=== PATIENT | female | born 1970 | race Caucasian/White ===

== ENCOUNTER 2016-09-04 22:24 | Emergency (ER) | payer MEDICAID ==
[~2016-09-04] VITALS: Ht 177.8 cm; Wt 83.9 kg
[2016-09-04 22:45] VITALS: BP 135/90
[2016-09-05] MEDS ORDERED: CYCLOBENZAPRINE HCL 10 MG TAB PO ONE (02:00)
[2016-09-05] MEDS ORDERED: IBUPROFEN 600 MG TAB PO ONE (02:00)
== END 2016-09-05 02:05 | disposition home or self-care (01) ==
LOC: ER 22:24
DX: S40.012A Contusion of left shoulder, initial encounter (principal); S40.022A Contusion of left upper arm, initial encounter; F12.10 Cannabis abuse, uncomplicated; Z88.0 Allergy status to penicillin; Z88.1 Allergy status to other antibiotic agents; W19.XXXA Unspecified fall, initial encounter; Y93.89 Activity, other specified; Y99.8 Other external cause status; Y92.89 Other specified places as the place of occurrence of the external cause
CPT/HCPCS: 72131; 73030; 73070; 73090; 73100; 73130

== ENCOUNTER 2022-03-09 12:47 | Emergency (ER) | payer MEDICAID ==
[~2022-03-09] VITALS: Ht 177.8 cm; Wt 103.4 kg
[2022-03-09 14:21] LABS: Basophils # (auto) 0.1 10 ^3/uL (0-0.2); Basophils % (auto) 1.3 % (0.0-2.0); Eosinophils # (auto) 0.1 10 ^3/uL (0-0.8); Hematocrit 45.1 % (36.0-46.0); Lymphocytes # (auto) 2.2 10 ^3/uL (0.4-5.4); Lymphocytes % (auto) 19.6 % (10.0-50.0); Mean Corpuscular Hemoglobin 30.8 pg (28.0-32.0); Mean Corpuscular Hgb Conc. 33.3 g/dL (32.0-36.0); Mean Corpuscular Volume 92.5 fL (80.0-100.0); Monocytes % (auto) 9.4 % (0.0-12.0); Neutrophils # (auto) 7.6 10 ^3/uL (1.6-8.6); Neutrophils % (auto) 68.7 % (37.0-80.0); Nucleated Red Blood Cells % 0.1 %; Red Blood Cells 4.87 10^6/uL (4.0-5.20); Red Cell Distribution Width 14.1 % (11.8-14.3); White Blood Cell 11.1 10^3/uL (4.4-10.8)
[2022-03-09 14:34] LABS: Albumin 3.5 g/dL (3.4-5.0); Calcium 8.8 mg/dL (8.5-10.1); Potassium 3.5 mmol/L (3.5-5.1)
[2022-03-09 14:37] LABS: Bilirubin, Total 0.5 mg/dL (0.2-1.0); Total Protein 7.2 g/dL (6.4-8.2)
[2022-03-09 17:10] VITALS: BP 143/91
== END 2022-03-09 14:44 | disposition home or self-care (01) ==
LOC: ER 12:54
DX: R55 Syncope and collapse (principal); R42 Dizziness and giddiness; J44.9 Chronic obstructive pulmonary disease, unspecified; E11.9 Type 2 diabetes mellitus without complications; I10 Essential (primary) hypertension; Z88.0 Allergy status to penicillin; Z88.2 Allergy status to sulfonamides
CPT/HCPCS: 36415; 80053; 84484; 85025; 93005

== ENCOUNTER → 2022-10-27 | Outpatient (CLI) | payer MEDICAID | END | disposition home or self-care (01) | LOC: XYW 08:46 | DX: R07.9 Chest pain, unspecified (principal) | CPT/HCPCS: 93306 ==

== ENCOUNTER 2023-01-01 11:34 | Inpatient (IN) | payer MEDICAID ==
[~2023-01-01] VITALS: Ht 177.8 cm; Wt 101.5 kg
[2023-01-01] MEDS ORDERED: SODIUM CHLORIDE 0.9% 1,000 ML IV ONE (12:15)
[2023-01-01 12:42] LABS: Basophils # (auto) 0.1 10 ^3/uL (0-0.2); Basophils % (auto) 0.9 % (0.0-2.0); Eosinophils # (auto) 0.1 10 ^3/uL (0-0.8); Hematocrit 46.6 % (36.0-46.0); Hemoglobin 15.2 g/dL (12.2-16.2); Lymphocytes # (auto) 2.4 10 ^3/uL (0.4-5.4); Lymphocytes % (auto) 17.3 % (10.0-50.0); Mean Corpuscular Hemoglobin 30.6 pg (28.0-32.0); Mean Corpuscular Hgb Conc. 32.7 g/dL (32.0-36.0); Mean Corpuscular Volume 93.8 fL (80.0-100.0); Monocytes # (auto) 1.1 10 ^3/uL (0-1.3); Monocytes % (auto) 7.6 % (0.0-12.0); Neutrophils # (auto) 10.2 10 ^3/uL (1.6-8.6); Neutrophils % (auto) 73.2 % (37.0-80.0); Nucleated Red Blood Cells % 0.1 %; Red Blood Cells 4.97 10^6/uL (4.0-5.20); Red Cell Distribution Width 14.1 % (11.8-14.3)
[2023-01-01 13:10] LABS: Alanine Aminotransferase 38 U/L (7-40); Albumin 4.5 g/dL (3.2-4.8); Alkaline Phosphatase 71 U/L (46-116); Anion Gap 7.3 (5-15); Aspartate Aminotransferase 13 U/L (13-40); BUN/Creatinine Ratio 10.8 (10.0-20.0); Bilirubin, Total 0.3 mg/dL (0.2-1.0); Blood Urea Nitrogen 11 mg/dL (9-23); Calcium 9.6 mg/dL (8.5-10.1); Carbon Dioxide 26.7 mmol/L (20-30); Chloride 104 mmol/L (98-107); Glucose 102 mg/dL (74-106); Potassium 3.8 mmol/L (3.5-5.1); Sodium 138 mmol/L (136-145)
[2023-01-01 13:11] LABS: Total Protein 7.3 g/dL (5.7-8.2)
[2023-01-01] MEDS ORDERED: MECL1TAB42 PO (14:19)
[2023-01-01] MEDS ORDERED: levoFLOXacin 750MG 150 ML IV ONE (14:30)
[2023-01-01] MEDS ORDERED: METO-289 PO (15:43)
[2023-01-01] MEDS ORDERED: CITA-73 PO (15:43)
[2023-01-01] MEDS ORDERED: NITROGLYCERIN 0.4 MG SL TAB SL PRN (15:45)
[2023-01-01] MEDS ORDERED: ACETAMINOPHEN 325 MG TAB PO PRN (15:45)
[2023-01-01] MEDS ORDERED: DOCUSATE SOD 100 MG CAP PO PRN (15:45)
[2023-01-01] MEDS ORDERED: HYDROcodone-ACET 5/325MG TAB PO PRN (15:45)
[2023-01-01] MEDS ORDERED: ONDANSETRON HCL 4 MG/2 ML VIAL IV PRN (15:45)
[2023-01-01] MEDS ORDERED: MORPHINE SULFATE INJ 2 MG/ml SYRG IV PRN (15:45)
[2023-01-01 15:55] LABS: Urine Bacteria NONE SEEN /hpf (None Seen); Urine Blood Negative /uL (Negative); Urine Clarity Clear (Clear); Urine Color Colorless (Yellow); Urine Protein, UAD Negative (Negative); Urine Specific Gravity 1.019 (1.001-1.035); Urine Urobilinogen Normal (Negative); Urine WBC 16 /hpf (0 - 5); Urine pH 5.5 (5.0-8.0)
[2023-01-01] MEDS ORDERED: IOHEXOL 350 MG/ML 100ML IJ ONE (16:05)
[2023-01-01] MEDS: OXYCODONE W/ ACETAMINOPHEN 5/325MG TABLET PO PRN (19:48)
[2023-01-01] MEDS: SODIUM CHLOR 0.9% PF (SALINE LOCK) 10ML VIAL/SYR IV SCH (22:34)
[2023-01-02] VITALS (14 sets, daily range): BP systolic 122–155; BP diastolic 70–94; PULSE 75–92; RESP 12–22; TEMP 97.2–98.4; O2SAT 95–100
[2023-01-02] MEDS ORDERED: ALBUTEROL SULF 2.5 MG/0.5ML(0.5%) NEB SOLN ONE (01:13)
[2023-01-02] MEDS: OXYCODONE W/ ACETAMINOPHEN 5/325MG TABLET PO PRN ×4 (03:09→21:33)
[2023-01-02 04:47] LABS: Basophils # (auto) 0.1 10 ^3/uL (0-0.2); Basophils % (auto) 0.5 % (0.0-2.0); Eosinophils # (auto) 0 10 ^3/uL (0-0.8); Eosinophils % (auto) 0.2 % (0.0-7.0); Hematocrit 46.4 % (36.0-46.0); Hemoglobin 15.3 g/dL (12.2-16.2); Lymphocytes # (auto) 2.3 10 ^3/uL (0.4-5.4); Lymphocytes % (auto) 11.7 % (10.0-50.0); Mean Corpuscular Hemoglobin 30.7 pg (28.0-32.0); Mean Corpuscular Hgb Conc. 33.1 g/dL (32.0-36.0); Mean Corpuscular Volume 92.8 fL (80.0-100.0); Monocytes # (auto) 1.4 10 ^3/uL (0-1.3); Monocytes % (auto) 7.5 % (0.0-12.0); Neutrophils # (auto) 15.4 10 ^3/uL (1.6-8.6); Neutrophils % (auto) 80.1 % (37.0-80.0); Red Cell Distribution Width 14.4 % (11.8-14.3); White Blood Cell 19.3 10^3/uL (4.4-10.8)
[2023-01-02 05:00] LABS: Alanine Aminotransferase 34 U/L (7-40); Albumin 4.6 g/dL (3.2-4.8); Alkaline Phosphatase 71 U/L (46-116); Anion Gap 11.7 (5-15); Aspartate Aminotransferase 18 U/L (13-40); BUN/Creatinine Ratio 10.4 (10.0-20.0); Bilirubin, Total 0.6 mg/dL (0.2-1.0); Blood Urea Nitrogen 10 mg/dL (9-23); Calcium 9.4 mg/dL (8.7-10.4); Carbon Dioxide 22.3 mmol/L (20-30); Chloride 104 mmol/L (98-107); Glucose 105 mg/dL (74-106); Potassium 3.3 mmol/L (3.5-5.1); Sodium 138 mmol/L (136-145); Total Protein 7.8 g/dL (5.7-8.2)
[2023-01-02] MEDS: SODIUM CHLOR 0.9% PF (SALINE LOCK) 10ML VIAL/SYR IV SCH ×3 (06:00→21:38)
[2023-01-02] MEDS ORDERED: BUPR100T16 PO (09:02)
[2023-01-02] MEDS ORDERED: TRAZ-228 PO (09:02)
[2023-01-02] MEDS ORDERED: GABA-339 PO (09:02)
[2023-01-02] MEDS ORDERED: METH-1181 PO (09:02)
[2023-01-02] MEDS ORDERED: BUSP30TA21 PO (09:02)
[2023-01-02] MEDS: ALBUTEROL SULF 2.5 MG/0.5ML(0.5%) NEB SOLN NEB PRN (09:02)
[2023-01-02] MEDS ORDERED: HYDR-3682 PO (09:02)
[2023-01-02] MEDS: GABAPENTIN 300 MG CAP PO PRN (09:58)
[2023-01-02] MEDS: busPIRone HCL 10 MG TAB PO SCH ×2 (09:58→21:31)
[2023-01-02] MEDS: METHOCARBAMOL 500 MG TAB PO SCH ×2 (09:58→21:31)
[2023-01-02] MEDS: hydrOXYzine HCL 10 MG TAB PO SCH ×2 (10:00→21:30)
[2023-01-02] MEDS: METOPROLOL SUCCINATE XL 50 MG TAB PO SCH (10:00)
[2023-01-02] MEDS ORDERED: CITALOPRAM HYDROBR 20 MG TAB PO SCH (10:00)
[2023-01-02] MEDS ORDERED: TEMAZEPAM 15 MG CAP PO PRN (11:00)
[2023-01-02] MEDS ORDERED: cefTRIAXone 1GM/50ML D5W 50 ML IV ONE (11:00)
[2023-01-02] MEDS ORDERED: ONDANSETRON HCL 4 MG/2 ML VIAL IV PRN (11:00)
[2023-01-02] MEDS: SODIUM CHLORIDE 0.9% 1,000 ML IV SCH ×2 (11:40→23:21)
[2023-01-02 11:50] LABS: Amylase 78 U/L (30-118); Lipase 45 U/L (12-53)
[2023-01-02 12:18] LABS: Erythrocyte Sedimentation Rate 3 mm/hr (0-20)
[2023-01-03] VITALS (8 sets, daily range): BP systolic 140–165; BP diastolic 58–101; PULSE 61–88; RESP 14–18; TEMP 97.7–98.9; O2SAT 94–100
[2023-01-03] MEDS: GABAPENTIN 300 MG CAP PO PRN (03:08)
[2023-01-03] MEDS: SODIUM CHLOR 0.9% PF (SALINE LOCK) 10ML VIAL/SYR IV SCH ×3 (05:17→21:57)
[2023-01-03] MEDS: OXYCODONE W/ ACETAMINOPHEN 5/325MG TABLET PO PRN ×3 (05:18→19:50)
[2023-01-03] MEDS: SODIUM CHLORIDE 0.9% 1,000 ML IV SCH ×2 (06:38→17:45)
[2023-01-03] MEDS: BUPROPION HCL 100 MG PO SCH (06:39)
[2023-01-03 06:40] LABS: Basophils # (auto) 0.1 10 ^3/uL (0-0.2); Basophils % (auto) 0.5 % (0.0-2.0); Eosinophils # (auto) 0.1 10 ^3/uL (0-0.8); Eosinophils % (auto) 0.6 % (0.0-7.0); Hematocrit 46.2 % (36.0-46.0); Hemoglobin 14.9 g/dL (12.2-16.2); Lymphocytes # (auto) 1.9 10 ^3/uL (0.4-5.4); Lymphocytes % (auto) 12.3 % (10.0-50.0); Mean Corpuscular Hemoglobin 30.4 pg (28.0-32.0); Mean Corpuscular Hgb Conc. 32.3 g/dL (32.0-36.0); Monocytes # (auto) 1.4 10 ^3/uL (0-1.3); Monocytes % (auto) 8.6 % (0.0-12.0); Neutrophils # (auto) 12.3 10 ^3/uL (1.6-8.6); Red Blood Cells 4.91 10^6/uL (4.0-5.20); Red Cell Distribution Width 14.3 % (11.8-14.3); White Blood Cell 15.8 10^3/uL (4.4-10.8)
[2023-01-03 08:39] LABS: Alanine Aminotransferase 29 U/L (7-40); Alkaline Phosphatase 63 U/L (46-116); Anion Gap 10.7 (5-15); Aspartate Aminotransferase 22 U/L (13-40); BUN/Creatinine Ratio 11.4 (10.0-20.0); Blood Urea Nitrogen 9 mg/dL (9-23); Calcium 8.8 mg/dL (8.5-10.1); Carbon Dioxide 20.3 mmol/L (20-30); Chloride 109 mmol/L (98-107); Glucose 89 mg/dL (74-106); Potassium 3.5 mmol/L (3.5-5.1); Sodium 140 mmol/L (136-145)
[2023-01-03 08:40] LABS: Bilirubin, Total 0.6 mg/dL (0.2-1.0); Total Protein 6.7 g/dL (5.7-8.2)
[2023-01-03] MEDS: cefTRIAXone 1GM/50ML D5W 50 ML IV SCH (08:50)
[2023-01-03] MEDS: busPIRone HCL 10 MG TAB PO SCH ×2 (10:05→21:52)
[2023-01-03] MEDS: METHOCARBAMOL 500 MG TAB PO SCH ×2 (10:06→21:53)
[2023-01-03] MEDS: METOPROLOL SUCCINATE XL 50 MG TAB PO SCH (10:06)
[2023-01-03] MEDS: hydrOXYzine HCL 10 MG TAB PO SCH (10:20)
[2023-01-03] MEDS ORDERED: OMEP20TA PO (12:26)
[2023-01-03] MEDS ORDERED: MEDR2.5T5 PO (12:26)
[2023-01-03] MEDS ORDERED: POM (12:26)
[2023-01-03] MEDS ORDERED: LINA145C OR (12:26)
[2023-01-03] MEDS ORDERED: FAMO-12 PO (12:26)
[2023-01-03] MEDS ORDERED: METO-289 PO (12:26)
[2023-01-03] MEDS ORDERED: FINA5TAB4 PO (12:26)
[2023-01-03] MEDS ORDERED: SEMA0.25 SC (12:26)
[2023-01-03] MEDS ORDERED: HYDR25TA4 PO (12:26)
[2023-01-03] MEDS ORDERED: ATO40T PO (12:26)
[2023-01-03] MEDS ORDERED: LISI20TA56 PO (12:26)
[2023-01-03] MEDS ORDERED: PERCOT PO (12:56)
[2023-01-03] MEDS ORDERED: IOHEXOL 300 MG/ML 100ML BOTTLE IJ ONE (13:48)
[2023-01-03] MEDS: ACETAMINOPHEN 500 MG TAB PO PRN (19:21)
[2023-01-03] MEDS: CITALOPRAM HYDROBR 20 MG TAB PO SCH (21:53)
[2023-01-03] MEDS: hydrOXYzine 25 MG TAB or CAP PO SCH (21:53)
[2023-01-04] VITALS (10 sets, daily range): BP systolic 124–182; BP diastolic 67–105; PULSE 67–81; RESP 14–21; TEMP 96.8–98.4; O2SAT 95–98
[2023-01-04] MEDS: SODIUM CHLORIDE 0.9% 1,000 ML IV SCH (03:00)
[2023-01-04] MEDS: SODIUM CHLOR 0.9% PF (SALINE LOCK) 10ML VIAL/SYR IV SCH ×3 (05:39→21:23)
[2023-01-04] MEDS: BUPROPION HCL 100 MG PO SCH (07:28)
[2023-01-04] MEDS: cefTRIAXone 1GM/50ML D5W 50 ML IV SCH (09:22)
[2023-01-04] MEDS: hydrOXYzine 25 MG TAB or CAP PO SCH ×2 (09:29→21:19)
[2023-01-04] MEDS: busPIRone HCL 10 MG TAB PO SCH ×2 (09:29→21:18)
[2023-01-04] MEDS: OXYCODONE W/ ACETAMINOPHEN 5/325MG TABLET PO PRN ×2 (09:29→19:44)
[2023-01-04] MEDS: METHOCARBAMOL 500 MG TAB PO SCH ×2 (09:30→21:19)
[2023-01-04] MEDS: METOPROLOL SUCCINATE XL 50 MG TAB PO SCH (09:30)
[2023-01-04] MEDS ORDERED: LISINOPRIL 20 MG TAB PO SCH (11:45)
[2023-01-04] MEDS: HCTZ 25 MG TAB PO SCH (12:08)
[2023-01-04] MEDS ORDERED: FINASTERIDE 5 MG TAB PO ONE (12:15)
[2023-01-04] MEDS: LINZESS 145 MG PO SCH (12:30)
[2023-01-04] MEDS: GABAPENTIN 300 MG CAP PO SCH ×2 (13:39→21:16)
[2023-01-04] MEDS ORDERED: ALBUAER3 IN (20:41)
[2023-01-04] MEDS: traZODone HCL 50 MG TAB PO SCH (21:17)
[2023-01-04] MEDS: CITALOPRAM HYDROBR 20 MG TAB PO SCH (21:17)
[2023-01-04] MEDS: LISINOPRIL 20 MG TAB PO SCH (21:18)
[2023-01-04] MEDS: medroxyPROGESTERone ACETATE 5 MG TAB PO SCH (22:37)
[2023-01-05] VITALS (12 sets, daily range): BP systolic 112–182; BP diastolic 70–106; PULSE 58–134; RESP 16–20; TEMP 97.6–98.6; O2SAT 95–100
[2023-01-05] MEDS: ACETAMINOPHEN 500 MG TAB PO PRN (00:25)
[2023-01-05] MEDS: OXYCODONE W/ ACETAMINOPHEN 5/325MG TABLET PO PRN ×3 (03:48→22:52)
[2023-01-05] MEDS: GABAPENTIN 300 MG CAP PO SCH ×3 (06:06→21:32)
[2023-01-05] MEDS: SODIUM CHLOR 0.9% PF (SALINE LOCK) 10ML VIAL/SYR IV SCH ×3 (06:06→21:34)
[2023-01-05] MEDS: BUPROPION HCL 100 MG PO SCH (06:07)
[2023-01-05] MEDS ORDERED: ADENOSINE 83 MG in GIVE UN-DILUTED 0 ML IV STA (07:48)
[2023-01-05] MEDS: cefTRIAXone 1GM/50ML D5W 50 ML IV SCH (08:59)
[2023-01-05] MEDS: busPIRone HCL 10 MG TAB PO SCH ×2 (12:03→21:32)
[2023-01-05] MEDS: FINASTERIDE 5 MG TAB PO SCH (12:04)
[2023-01-05] MEDS: hydrOXYzine 25 MG TAB or CAP PO SCH ×2 (12:04→21:33)
[2023-01-05] MEDS: METHOCARBAMOL 500 MG TAB PO SCH ×2 (12:04→21:33)
[2023-01-05] MEDS: METOPROLOL SUCCINATE XL 50 MG TAB PO SCH (12:05)
[2023-01-05] MEDS: HCTZ 25 MG TAB PO SCH (12:05)
[2023-01-05] MEDS: LINZESS 145 MG PO SCH (15:39)
[2023-01-05] MEDS ORDERED: ATORVASTATIN 20 MG TAB PO SCH (18:00)
[2023-01-05] MEDS: BUDESONIDE (INHALATION) 0.5 MG/2 ML NEB NEB SCH (21:07)
[2023-01-05] MEDS: ALBUTEROL SULF 2.5 MG/0.5ML(0.5%) NEB SOLN NEB PRN (21:07)
[2023-01-05] MEDS: CITALOPRAM HYDROBR 20 MG TAB PO SCH (21:27)
[2023-01-05] MEDS: LISINOPRIL 20 MG TAB PO SCH (21:31)
[2023-01-05] MEDS: traZODone HCL 50 MG TAB PO SCH (21:32)
[2023-01-05] MEDS: FAMOTIDINE 20 MG TAB PO SCH (21:33)
[2023-01-05] MEDS: medroxyPROGESTERone ACETATE 5 MG TAB PO SCH (22:44)
[2023-01-06] VITALS (12 sets, daily range): BP systolic 102–136; BP diastolic 51–76; PULSE 59–92; RESP 16–18; TEMP 97.7–98.7; O2SAT 93–100
[2023-01-06] MEDS: GABAPENTIN 300 MG CAP PO SCH ×3 (06:01→21:39)
[2023-01-06] MEDS: SODIUM CHLOR 0.9% PF (SALINE LOCK) 10ML VIAL/SYR IV SCH ×3 (06:02→21:33)
[2023-01-06] MEDS: BUPROPION HCL 100 MG PO SCH (06:02)
[2023-01-06] MEDS: cefTRIAXone 1GM/50ML D5W 50 ML IV SCH (08:19)
[2023-01-06] MEDS: BUDESONIDE (INHALATION) 0.5 MG/2 ML NEB NEB SCH ×2 (09:56→22:10)
[2023-01-06] MEDS: ALBUTEROL SULF 2.5 MG/0.5ML(0.5%) NEB SOLN NEB PRN ×2 (09:56→22:10)
[2023-01-06] MEDS: FINASTERIDE 5 MG TAB PO SCH (10:06)
[2023-01-06] MEDS: METOPROLOL SUCCINATE XL 50 MG TAB PO SCH (10:06)
[2023-01-06] MEDS: METHOCARBAMOL 500 MG TAB PO SCH ×3 (10:09→21:35)
[2023-01-06] MEDS: HCTZ 25 MG TAB PO SCH (10:10)
[2023-01-06] MEDS: hydrOXYzine 25 MG TAB or CAP PO SCH ×2 (10:10→21:36)
[2023-01-06] MEDS: busPIRone HCL 10 MG TAB PO SCH ×2 (10:12→21:36)
[2023-01-06] MEDS: LINZESS 145 MG PO SCH (10:13)
[2023-01-06] MEDS: PANTOPRAZOLE 40 MG TAB PO SCH (11:22)
[2023-01-06] MEDS: OXYCODONE W/ ACETAMINOPHEN 5/325MG TABLET PO PRN (11:43)
[2023-01-06] MEDS: medroxyPROGESTERone ACETATE 5 MG TAB PO SCH (21:34)
[2023-01-06] MEDS: traZODone HCL 50 MG TAB PO SCH (21:36)
[2023-01-06] MEDS: CITALOPRAM HYDROBR 20 MG TAB PO SCH (21:37)
[2023-01-06] MEDS: LISINOPRIL 20 MG TAB PO SCH (21:38)
[2023-01-06] MEDS: FAMOTIDINE 20 MG TAB PO SCH (21:38)
[2023-01-06] MEDS ORDERED: ATORVASTATIN 20 MG TAB PO SCH (22:00)
[2023-01-07] VITALS (10 sets, daily range): BP systolic 114–152; BP diastolic 58–82; PULSE 63–91; RESP 12–19; TEMP 97.5–97.9; O2SAT 90–95
[2023-01-07] MEDS: OXYCODONE W/ ACETAMINOPHEN 5/325MG TABLET PO PRN (04:38)
[2023-01-07 04:49] LABS: Basophils # (auto) 0.1 10 ^3/uL (0-0.2); Basophils % (auto) 0.5 % (0.0-2.0); Eosinophils # (auto) 0.2 10 ^3/uL (0-0.8); Eosinophils % (auto) 1.6 % (0.0-7.0); Hematocrit 42.5 % (36.0-46.0); Lymphocytes # (auto) 2.5 10 ^3/uL (0.4-5.4); Lymphocytes % (auto) 19.2 % (10.0-50.0); Mean Corpuscular Hemoglobin 30.8 pg (28.0-32.0); Mean Corpuscular Hgb Conc. 32.9 g/dL (32.0-36.0); Mean Corpuscular Volume 93.5 fL (80.0-100.0); Monocytes # (auto) 1.4 10 ^3/uL (0-1.3); Monocytes % (auto) 10.6 % (0.0-12.0); Neutrophils % (auto) 68.1 % (37.0-80.0); Nucleated Red Blood Cells % 0.1 %; Red Blood Cells 4.55 10^6/uL (4.0-5.20); White Blood Cell 13.2 10^3/uL (4.4-10.8)
[2023-01-07 04:59] LABS: Anion Gap 6.5 (5-15); Carbon Dioxide 24.5 mmol/L (20-30); Chloride 107 mmol/L (98-107); Potassium 3.5 mmol/L (3.5-5.1); Sodium 138 mmol/L (136-145)
[2023-01-07 05:05] LABS: BUN/Creatinine Ratio 13.8 (10.0-20.0); Blood Urea Nitrogen 12 mg/dL (9-23); Glucose 101 mg/dL (74-106)
[2023-01-07 05:14] LABS: INR 1.03 (0.9-1.15); Partial Thromboplastin Time 26.2 SEC (24.5-34.5); Prothrombin Time 10.8 sec (9.3-11.8)
[2023-01-07] MEDS: GABAPENTIN 300 MG CAP PO SCH ×2 (05:44→14:00)
[2023-01-07] MEDS: SODIUM CHLOR 0.9% PF (SALINE LOCK) 10ML VIAL/SYR IV SCH ×2 (05:47→14:00)
[2023-01-07] MEDS: BUPROPION HCL 100 MG PO SCH (06:02)
[2023-01-07] MEDS: cefTRIAXone 1GM/50ML D5W 50 ML IV SCH (08:46)
[2023-01-07] MEDS: busPIRone HCL 10 MG TAB PO SCH (10:00)
[2023-01-07] MEDS: HCTZ 25 MG TAB PO SCH (10:00)
[2023-01-07] MEDS: PANTOPRAZOLE 40 MG TAB PO SCH (10:00)
[2023-01-07] MEDS: FINASTERIDE 5 MG TAB PO SCH (10:00)
[2023-01-07] MEDS: METOPROLOL SUCCINATE XL 50 MG TAB PO SCH (10:00)
[2023-01-07] MEDS: LINZESS 145 MG PO SCH (10:00)
[2023-01-07] MEDS: METHOCARBAMOL 500 MG TAB PO SCH (10:00)
[2023-01-07] MEDS: hydrOXYzine 25 MG TAB or CAP PO SCH (10:00)
[2023-01-07] MEDS ORDERED: HEPARIN SODIUM (PORCINE) 5000 UNITS/ML 1ML VIAL ONE (13:33)
[2023-01-07] MEDS ORDERED: ANGIOMAX 250 MG VIAL IV ONE (13:33)
[2023-01-07] MEDS ORDERED: IODIXANOL 320MG/ML 100ML BTL IV ONE (13:34)
[2023-01-07] MEDS ORDERED: SODIUM CHL 0.9% 0 ML ONE (13:34)
[2023-01-07] MEDS ORDERED: MIDAZOLAM HCL 2MG/2ML 2ml VIAL (1mg/ml) ONE (13:34)
[2023-01-07] MEDS ORDERED: LIDOCAINE 2%HCL (LOCAL ANESTH.) INJ 20ML MDV ONE (13:34)
[2023-01-07] MEDS ORDERED: fentaNYL CITRATE 100 MCG/2 ML VL ONE (13:34)
[2023-01-07] MEDS ORDERED: VERAPAMIL 2.5MG/ML INJ 2ML VIAL IV ONE (13:35)
[2023-01-08] MEDS ORDERED: ASPI-543 PO (07:17)
== END 2023-01-07 19:00 | disposition home or self-care (01) | DRG 191 ==
LOC: ER 11:34 → EDBD 11:34 → TELE 15:43 → TELE-WESTW 01-02 12:01
PROVIDERS: ADMIT Nurse Practitioner Family; ATTEND Nurse Practitioner Acute Care
PROC: 4A023N7 Measurement of Cardiac Sampling and Pressure, Left Heart, Percutaneous Approach (ICD-10-PCS; principal; 2023-01-07)
PROC: B211YZZ Fluoroscopy of Multiple Coronary Arteries using Other Contrast (ICD-10-PCS; 2023-01-07)
PROC: B215YZZ Fluoroscopy of Left Heart using Other Contrast (ICD-10-PCS; 2023-01-07)
DX: I25.10 Atherosclerotic heart disease of native coronary artery without angina pectoris (principal); K76.0 Fatty (change of) liver, not elsewhere classified; E11.9 Type 2 diabetes mellitus without complications; R79.89 Other specified abnormal findings of blood chemistry; N39.0 Urinary tract infection, site not specified; K57.90 Diverticulosis of intestine, part unspecified, without perforation or abscess without bleeding; Z20.822 Contact with and (suspected) exposure to COVID-19; R51.9 Headache, unspecified; G89.29 Other chronic pain; M54.50 Low back pain, unspecified; J44.9 Chronic obstructive pulmonary disease, unspecified; I10 Essential (primary) hypertension; Z79.82 Long term (current) use of aspirin; Z88.0 Allergy status to penicillin; Z88.2 Allergy status to sulfonamides
CPT/HCPCS: 36415; 70450; 71045; 71275; 74177; 78452; 80048; 80053; 81001; 82150; 82962; 83690; 84443; 84484; 85025; 85379; 85610; 85652; 85730; 87040; 87086; 93005; 93017; 93306; 93458; 93970; 94640; 99152; G0378; J0153; J0696; J1956; J2250; J2405; Q9967

== ENCOUNTER 2023-01-07 21:24 | Inpatient (IN) | payer MEDICAID ==
[~2023-01-07] VITALS: Ht 177.8 cm; Wt 104.3 kg
[~2023-01-07 21:24] MED LIST: ALBUAER3 IN; ATO40T PO; BUPR100T16 PO; BUSP30TA21 PO; CITA-73 PO; FAMO-12 PO; FINA5TAB4 PO; GABA-339 PO; HYDR-3682 PO; HYDR25TA4 PO; LINA145C OR; LISI20TA56 PO; MECL1TAB42 PO; MEDR2.5T5 PO; METH-1181 PO; METO-289 PO; OMEP20TA PO; PERCOT PO; POM; SEMA0.25 SC; TRAZ-228 PO
[2023-01-07] MEDS ORDERED: ADENOSINE 6 MG/2 ML INJ IV ONE ×2 (22:00)
[2023-01-07 22:28] LABS: Basophils # (auto) 0.1 10 ^3/uL (0-0.2); Basophils % (auto) 0.7 % (0.0-2.0); Eosinophils # (auto) 0.1 10 ^3/uL (0-0.8); Eosinophils % (auto) 0.8 % (0.0-7.0); Hematocrit 44.1 % (36.0-46.0); Hemoglobin 14.8 g/dL (12.2-16.2); Lymphocytes # (auto) 2.9 10 ^3/uL (0.4-5.4); Lymphocytes % (auto) 20.3 % (10.0-50.0); Mean Corpuscular Hemoglobin 31.6 pg (28.0-32.0); Mean Corpuscular Hgb Conc. 33.7 g/dL (32.0-36.0); Monocytes # (auto) 1.4 10 ^3/uL (0-1.3); Monocytes % (auto) 9.5 % (0.0-12.0); Neutrophils # (auto) 9.9 10 ^3/uL (1.6-8.6); Neutrophils % (auto) 68.7 % (37.0-80.0); Red Blood Cells 4.69 10^6/uL (4.0-5.20); Red Cell Distribution Width 14.2 % (11.8-14.3); White Blood Cell 14.3 10^3/uL (4.4-10.8)
[2023-01-07 22:46] LABS: Lactic Acid w/Reflex 3.2 mmol/L (0.4-2.0)
[2023-01-07 22:48] LABS: Alanine Aminotransferase 47 U/L (7-40); Albumin 4.3 g/dL (3.2-4.8); Alkaline Phosphatase 70 U/L (46-116); Anion Gap 10 (5-15); Aspartate Aminotransferase 25 U/L (13-40); BUN/Creatinine Ratio 11.5 (10.0-20.0); Bilirubin, Total 0.4 mg/dL (0.2-1.0); Blood Alcohol < 3.0 mg/dL (<10); Blood Urea Nitrogen 13 mg/dL (9-23); Calcium 9.2 mg/dL (8.7-10.4); Carbon Dioxide 21 mmol/L (20-30); Chloride 106 mmol/L (98-107); Glucose 152 mg/dL (74-106); Lipase 46 U/L (12-53); Magnesium 1.6 mg/dL (1.6-2.6); Potassium 3.7 mmol/L (3.5-5.1); Sodium 137 mmol/L (136-145); Total Protein 7.2 g/dL (5.7-8.2)
[2023-01-07 23:04] LABS: INR 1.05 (0.9-1.15); Partial Thromboplastin Time 26.7 SEC (24.5-34.5)
[2023-01-07] MEDS ORDERED: ENOXAPARIN SOD 100 MG/1 ML SYRINGE SC ONE (23:45)
[2023-01-07] MEDS ORDERED: METOPROLOL TARTRATE 1MG/1ML-5ML VIAL IV ONE (23:45)
[2023-01-07] MEDS ORDERED: ASPirin 325 MG TAB PO ONE (23:45)
[2023-01-08] VITALS (10 sets, daily range): BP systolic 130–146; BP diastolic 58–92; PULSE 59–98; RESP 18–20; TEMP 97.6–98; O2SAT 96–100
[2023-01-08] MEDS ORDERED: LACTATED RINGER'S 2,000 ML IV ONE (00:30)
[2023-01-08] MEDS ORDERED: MAGNESIUM SULFATE 1GM/100ML 100 ML IV ONE (00:45)
[2023-01-08] MEDS ORDERED: ACETAMINOPHEN 325 MG TAB PO PRN (01:00)
[2023-01-08] MEDS ORDERED: DEXTROSE (50%) 50ML SYRG IV PRN (01:00)
[2023-01-08] MEDS ORDERED: NITROGLYCERIN 0.4 MG SL TAB SL PRN (01:00)
[2023-01-08] MEDS ORDERED: MORPHINE SULFATE INJ 2 MG/ml SYRG IV PRN (01:00)
[2023-01-08] MEDS ORDERED: ONDANSETRON HCL 4 MG/2 ML VIAL IV PRN (01:00)
[2023-01-08] MEDS ORDERED: ALBUTEROL SULF 2.5 MG/0.5ML(0.5%) NEB SOLN NEB PRN (01:00)
[2023-01-08] MEDS ORDERED: diphenhdrAMINE HCL 50 MG/1 ML VL ONE (03:23)
[2023-01-08] MEDS ORDERED: diphenhdrAMINE HCL 50 MG/1 ML VL IV ONE (03:30)
[2023-01-08] MEDS: InsuLIN REG 1unit/0.01ml Soln (100units/ml) SC SCH ×3 (06:00→17:37)
[2023-01-08] MEDS ORDERED: ASPI-543 PO (07:17)
[2023-01-08] MEDS: GABAPENTIN 300 MG CAP PO SCH ×3 (07:26→22:25)
[2023-01-08] MEDS: ACCU-CHEK COMFORT CURVE STRIP VI SCH ×3 (07:27→17:37)
[2023-01-08] MEDS: ASPirin 81 mg TAB PO SCH (09:23)
[2023-01-08] MEDS: METOPROLOL SUCCINATE XL 50 MG TAB PO SCH (09:24)
[2023-01-08] MEDS: PANTOPRAZOLE 40 MG TAB PO SCH (09:25)
[2023-01-08] MEDS: HCTZ 25 MG TAB PO SCH (09:26)
[2023-01-08] MEDS: LISINOPRIL 10 MG TAB PO SCH (09:26)
[2023-01-08] MEDS: ENOXAPARIN SOD 40 MG/0.4 ML SYRINGE SC SCH (09:27)
[2023-01-08 11:26] LABS: Amphetamine Screen, Urine Neg (NEGATIVE); Barbiturate Scree,Urine Neg (NEGATIVE); Benzodiazephine Screen, Urine Pos (NEGATIVE); Cocaine Screen, Urine Neg (NEGATIVE); Opiate Scree,Urine Neg (NEGATIVE); Phencyclidine Screen, Urine Neg (NEGATIVE)
[2023-01-08 11:27] LABS: Cannabinoid Screen, Urine Pos (NEGATIVE)
[2023-01-08 11:33] LABS: Urine Bacteria NONE SEEN /hpf (None Seen); Urine Blood Negative /uL (Negative); Urine Clarity Clear (Clear); Urine Color Yellow (Yellow); Urine Mucus FEW (None Seen); Urine Protein, UAD TRACE (Negative); Urine Specific Gravity 1.035 (1.001-1.035); Urine Urobilinogen Normal (Negative); Urine WBC 1 /hpf (0 - 5)
[2023-01-08] MEDS ORDERED: OXYCODONE W/ ACETAMINOPHEN 5/325MG TABLET PO PRN (12:15)
[2023-01-08] MEDS: AMIODARONE HCL 200 MG TAB PO SCH ×2 (13:29→22:25)
[2023-01-08] MEDS: OXYCODONE W/ ACETAMINOPHEN 5/325MG TABLET PO PRN (13:30)
[2023-01-08] MEDS ORDERED: ATORVASTATIN 20 MG TAB PO SCH (22:00)
[2023-01-08] MEDS: hydrOXYzine 25 MG TAB or CAP PO SCH (22:25)
[2023-01-08] MEDS: METHOCARBAMOL 500 MG TAB PO SCH (22:26)
[2023-01-08] MEDS ORDERED: traZODone HCL 50 MG TAB PO SCH (23:00)
[2023-01-09 04:46] VITALS: BP 133/80; PULSE 31; RESP 17; TEMP 98; O2SAT 96
[2023-01-09] MEDS: InsuLIN REG 1unit/0.01ml Soln (100units/ml) SC SCH ×2 (06:00)
[2023-01-09] MEDS: ACCU-CHEK COMFORT CURVE STRIP VI SCH ×2 (06:00)
[2023-01-09 06:43] LABS: Basophils # (auto) 0.1 10 ^3/uL (0-0.2); Basophils % (auto) 1.1 % (0.0-2.0); Eosinophils # (auto) 0.1 10 ^3/uL (0-0.8); Eosinophils % (auto) 1.5 % (0.0-7.0); Hematocrit 39.9 % (36.0-46.0); Hemoglobin 13.7 g/dL (12.2-16.2); Lymphocytes # (auto) 2.8 10 ^3/uL (0.4-5.4); Lymphocytes % (auto) 30.7 % (10.0-50.0); Mean Corpuscular Hgb Conc. 34.4 g/dL (32.0-36.0); Monocytes # (auto) 1.1 10 ^3/uL (0-1.3); Monocytes % (auto) 12.5 % (0.0-12.0); Neutrophils # (auto) 4.9 10 ^3/uL (1.6-8.6); Neutrophils % (auto) 54.2 % (37.0-80.0); Nucleated Red Blood Cells % 0.1 %; Red Cell Distribution Width 14.1 % (11.8-14.3)
[2023-01-09] MEDS: GABAPENTIN 300 MG CAP PO SCH (06:49)
[2023-01-09] MEDS: OXYCODONE W/ ACETAMINOPHEN 5/325MG TABLET PO PRN (06:49)
[2023-01-09 06:55] LABS: Alanine Aminotransferase 37 U/L (7-40); Albumin 3.8 g/dL (3.2-4.8); Alkaline Phosphatase 56 U/L (46-116); Anion Gap 6 (5-15); Aspartate Aminotransferase 19 U/L (13-40); BUN/Creatinine Ratio 10.7 (10.0-20.0); Bilirubin, Total 0.5 mg/dL (0.2-1.0); Blood Urea Nitrogen 9 mg/dL (9-23); Calcium 8.6 mg/dL (8.5-10.1); Carbon Dioxide 26 mmol/L (20-30); Chloride 107 mmol/L (98-107); Glucose 88 mg/dL (74-106); Potassium 3.4 mmol/L (3.5-5.1); Sodium 139 mmol/L (136-145); Total Protein 6.3 g/dL (5.7-8.2)
[2023-01-09 08:00] VITALS: PULSE 69
[2023-01-09 08:05] VITALS: PULSE 68; RESP 17; O2SAT 96
[2023-01-09] MEDS ORDERED: AMIO200T33 PO (09:30)
[2023-01-09] MEDS: ASPirin 81 mg TAB PO SCH (09:41)
[2023-01-09] MEDS: ENOXAPARIN SOD 40 MG/0.4 ML SYRINGE SC SCH (09:41)
[2023-01-09] MEDS: PANTOPRAZOLE 40 MG TAB PO SCH (09:42)
[2023-01-09] MEDS: LISINOPRIL 10 MG TAB PO SCH (09:42)
[2023-01-09] MEDS: METOPROLOL SUCCINATE XL 50 MG TAB PO SCH (09:42)
[2023-01-09] MEDS: METHOCARBAMOL 500 MG TAB PO SCH (09:42)
[2023-01-09] MEDS: hydrOXYzine 25 MG TAB or CAP PO SCH (09:42)
[2023-01-09] MEDS: HCTZ 25 MG TAB PO SCH (09:43)
[2023-01-09] MEDS: AMIODARONE HCL 200 MG TAB PO SCH (09:43)
[2023-01-09] MEDS ORDERED: buPROPion HCL 100 MG TAB PO SCH (10:00)
[2023-01-09] MEDS ORDERED: LINZESS 145 MCG PO SCH (10:00)
[2023-01-09] MEDS ORDERED: busPIRone HCL 10 MG TAB PO SCH (10:00)
[2023-01-09 10:01] VITALS: BP 135/80; PULSE 68; RESP 17; TEMP 97.8; O2SAT 96
== END 2023-01-09 11:00 | disposition home or self-care (01) | DRG 201 ==
LOC: EDBD 21:24 → EDSEX 21:24 → ER 21:25 → TELE 01-08 00:59 → TELE-WESTW 01-08 06:00
PROVIDERS: ADMIT Nurse Practitioner; ATTEND Family Medicine
DX: I47.1 Supraventricular tachycardia (principal); E87.20 Acidosis, unspecified; E11.22 Type 2 diabetes mellitus with diabetic chronic kidney disease; E78.5 Hyperlipidemia, unspecified; D72.829 Elevated white blood cell count, unspecified; E86.0 Dehydration; F32.A Depression, unspecified; N18.9 Chronic kidney disease, unspecified; I12.9 Hypertensive chronic kidney disease with stage 1 through stage 4 chronic kidney disease, or unspecified chronic kidney disease; J44.9 Chronic obstructive pulmonary disease, unspecified; I25.10 Atherosclerotic heart disease of native coronary artery without angina pectoris; F41.9 Anxiety disorder, unspecified; Z88.0 Allergy status to penicillin; Z90.49 Acquired absence of other specified parts of digestive tract; Z88.2 Allergy status to sulfonamides; Z86.711 Personal history of pulmonary embolism
CPT/HCPCS: 36415; 71045; 80053; 80307; 80320; 81001; 82010; 82962; 83605; 83690; 83735; 83880; 84443; 84484; 85025; 85610; 85730; 87081; 93005; 99291; G0378; J0153

== ENCOUNTER 2023-09-11 19:53 | Inpatient (IN) | payer MEDICAID ==
[~2023-09-11] VITALS: Ht 180.3 cm; Wt 77.5 kg
[~2023-09-11 19:53] MED LIST changes: +AMIO200T33 PO; +ASPI-543 PO; -ATO40T PO; +ATOR-507 PO
[2023-09-11 20:43] LABS: Urine Bacteria None Seen /hpf (None Seen)
[2023-09-11 21:02] LABS: Urine Blood Negative /uL (Negative); Urine Clarity Clear (Clear); Urine Color Yellow (Yellow); Urine Mucus FEW (None Seen); Urine Protein, UAD TRACE (Negative); Urine Specific Gravity 1.023 (1.001-1.035); Urine Urobilinogen Normal (Negative); Urine WBC 35 /hpf (0 - 5)
[2023-09-11 21:04] LABS: Basophils # (auto) 0.1 10 ^3/uL (0-0.2); Basophils % (auto) 0.4 % (0.0-2.0); Eosinophils # (auto) 0.2 10 ^3/uL (0-0.8); Eosinophils % (auto) 1.1 % (0.0-7.0); Hematocrit 41.8 % (36.0-46.0); Lymphocytes # (auto) 1.9 10 ^3/uL (0.4-5.4); Lymphocytes % (auto) 13.2 % (10.0-50.0); Mean Corpuscular Hgb Conc. 33.6 g/dL (32.0-36.0); Mean Corpuscular Volume 92.2 fL (80.0-100.0); Monocytes # (auto) 0.9 10 ^3/uL (0-1.3); Monocytes % (auto) 6.4 % (0.0-12.0); Neutrophils # (auto) 11.3 10 ^3/uL (1.6-8.6); Neutrophils % (auto) 78.9 % (37.0-80.0); Red Blood Cells 4.53 10^6/uL (4.0-5.20); Red Cell Distribution Width 13.8 % (11.8-14.3); White Blood Cell 14.3 10^3/uL (4.4-10.8)
[2023-09-11 21:08] LABS: Chloride 103 mmol/L (98-107); Potassium 2.8 mmol/L (3.5-5.1); Sodium 139 mmol/L (136-145)
[2023-09-11 21:09] LABS: Anion Gap 6 (5-15); Carbon Dioxide 30 mmol/L (20-30)
[2023-09-11 21:10] LABS: Calcium 9.6 mg/dL (8.7-10.4)
[2023-09-11 21:14] LABS: Glucose 110 mg/dL (74-106)
[2023-09-11 21:15] LABS: BUN/Creatinine Ratio 8.1 (10.0-20.0); Blood Urea Nitrogen 8 mg/dL (9-23); Lipase 33 U/L (12-53)
[2023-09-12] VITALS (9 sets, daily range): BP systolic 97–158; BP diastolic 47–82; PULSE 59–89; RESP 14–20; TEMP 97.6–98.8; O2SAT 94–98
[2023-09-12] MEDS: ACETAMINOPHEN 500 MG TAB PO ONE (00:21)
[2023-09-12] MEDS ORDERED: ACETAMINOPHEN 325 MG TAB PO PRN (00:30)
[2023-09-12] MEDS ORDERED: HYDROcodone-ACET 5/325MG TAB PO PRN (00:30)
[2023-09-12] MEDS: SODIUM CHLORIDE 0.9% 1,000 ML IV SCH (01:36)
[2023-09-12] MEDS: metroNIDAZOLE 500MG/100ML 100 ML IV ONE (01:36)
[2023-09-12] MEDS ORDERED: NITROGLYCERIN 0.4 MG SL TAB SL PRN (01:45)
[2023-09-12] MEDS ORDERED: DEXTROSE (50%) 50ML SYRG IV PRN (02:00)
[2023-09-12] MEDS: ONDANSETRON HCL 4 MG/2 ML VIAL IV PRN (02:47)
[2023-09-12] MEDS: MORPHINE SULFATE INJ 2 MG/ml SYRG IV PRN (02:49)
[2023-09-12] MEDS: POTASSIUM CHL 20MEQ/100ML 100 ML IV SCH (03:21)
[2023-09-12] MEDS: InsuLIN REG 1unit/0.01ml Soln (100units/ml) SC SCH (06:00)
[2023-09-12] MEDS: ACCU-CHEK COMFORT CURVE STRIP VI SCH (06:00)
[2023-09-12] MEDS: metroNIDAZOLE 500MG/100ML 100 ML IV SCH (06:00)
[2023-09-12] MEDS ORDERED: MORPHINE SULFATE INJ 2 MG/ml SYRG IV PRN (11:15)
[2023-09-12] MEDS: MORPHINE SULFATE 4 MG/ML SYR/VIAL IV PRN (11:37)
[2023-09-12] MEDS: levoFLOXacin 500MG 100 ML IV SCH (13:01)
[2023-09-12] MEDS: TEMAZEPAM 15 MG CAP PO ONE (23:11)
[2023-09-13] VITALS (10 sets, daily range): BP systolic 125–168; BP diastolic 62–83; PULSE 64–84; RESP 18–20; TEMP 98.1–98.6; O2SAT 91–98
[2023-09-13] MEDS: DOCUSATE SOD 100 MG CAP PO PRN (04:24)
[2023-09-13 05:31] LABS: Basophils # (auto) 0.1 10 ^3/uL (0-0.2); Basophils % (auto) 0.5 % (0.0-2.0); Eosinophils # (auto) 0.1 10 ^3/uL (0-0.8); Eosinophils % (auto) 0.8 % (0.0-7.0); Hematocrit 39.2 % (36.0-46.0); Hemoglobin 12.9 g/dL (12.2-16.2); Lymphocytes # (auto) 1.8 10 ^3/uL (0.4-5.4); Lymphocytes % (auto) 12.5 % (10.0-50.0); Mean Corpuscular Hemoglobin 30.5 pg (28.0-32.0); Mean Corpuscular Volume 92.2 fL (80.0-100.0); Monocytes # (auto) 1.4 10 ^3/uL (0-1.3); Monocytes % (auto) 9.6 % (0.0-12.0); Neutrophils # (auto) 10.9 10 ^3/uL (1.6-8.6); Neutrophils % (auto) 76.6 % (37.0-80.0); Red Blood Cells 4.25 10^6/uL (4.0-5.20); Red Cell Distribution Width 13.8 % (11.8-14.3); White Blood Cell 14.2 10^3/uL (4.4-10.8)
[2023-09-13 05:52] LABS: Alanine Aminotransferase 66 U/L (7-40); Alkaline Phosphatase 59 U/L (46-116); Anion Gap 10 (5-15); BUN/Creatinine Ratio 9.5 (10.0-20.0); Blood Urea Nitrogen 7 mg/dL (9-23); Calcium 8.8 mg/dL (8.7-10.4); Carbon Dioxide 25 mmol/L (20-30); Chloride 105 mmol/L (98-107); Glucose 82 mg/dL (74-106); Potassium 2.6 mmol/L (3.5-5.1); Sodium 140 mmol/L (136-145)
[2023-09-13 05:53] LABS: Albumin 3.2 g/dL (3.2-4.8); Aspartate Aminotransferase 30 U/L (13-40); Bilirubin, Total 0.4 mg/dL (0.2-1.0); Total Protein 5.6 g/dL (5.7-8.2)
[2023-09-13] MEDS: PANTOPRAZOLE 40 MG/10 ML VIAL INJ IV ONE (16:26)
[2023-09-13] MEDS: POTASSIUM CHLORIDE 80 MEQ, LIDOCAINE 1% (LOCAL ANESTH.) 6 ML in SODIUM CHL 0.9% 500 ML IV ONE (19:59)
[2023-09-13] MEDS: TEMAZEPAM 15 MG CAP PO ONE (22:18)
[2023-09-14] VITALS (8 sets, daily range): BP systolic 143–169; BP diastolic 70–101; PULSE 7–111; RESP 17–21; TEMP 98.2–98.9; O2SAT 95–97
[2023-09-14] MEDS: PANTOPRAZOLE 40 MG/10 ML VIAL INJ IV SCH (09:41)
[2023-09-14 11:56] LABS: Basophils # (auto) 0.1 10 ^3/uL (0-0.2); Basophils % (auto) 0.4 % (0.0-2.0); Eosinophils # (auto) 0 10 ^3/uL (0-0.8); Eosinophils % (auto) 0.1 % (0.0-7.0); Hematocrit 41.7 % (36.0-46.0); Lymphocytes # (auto) 1.4 10 ^3/uL (0.4-5.4); Lymphocytes % (auto) 7.6 % (10.0-50.0); Mean Corpuscular Hemoglobin 30.8 pg (28.0-32.0); Mean Corpuscular Hgb Conc. 33.6 g/dL (32.0-36.0); Mean Corpuscular Volume 91.8 fL (80.0-100.0); Monocytes # (auto) 1.4 10 ^3/uL (0-1.3); Neutrophils % (auto) 83.9 % (37.0-80.0); Red Blood Cells 4.54 10^6/uL (4.0-5.20); White Blood Cell 17.9 10^3/uL (4.4-10.8)
[2023-09-14 12:04] LABS: Chloride 109 mmol/L (98-107); Potassium 3.1 mmol/L (3.5-5.1); Sodium 142 mmol/L (136-145)
[2023-09-14 12:05] LABS: Anion Gap 10 (5-15); Carbon Dioxide 23 mmol/L (20-30)
[2023-09-14 12:06] LABS: Calcium 9.1 mg/dL (8.5-10.1)
[2023-09-14 12:11] LABS: Glucose 100 mg/dL (74-106)
[2023-09-14 12:20] LABS: BUN/Creatinine Ratio 6.6 (10.0-20.0); Blood Urea Nitrogen < 5 mg/dL (9-23)
[2023-09-14] MEDS: POTASSIUM CHL 20 Meq TABLET PO ONE (15:41)
[2023-09-14] MEDS: oxyCODONE HCL 5MG TAB PO PRN ×2 (15:41→21:40)
[2023-09-14] MEDS: ACETAMINOPHEN 325 MG TAB PO PRN (15:42)
[2023-09-14] MEDS: hydrALAZINE HCL 20 MG/ML VL IV PRN (17:53)
[2023-09-14] MEDS: MORPHINE SULFATE INJ 2 MG/ml SYRG IV PRN (18:35)
[2023-09-14] MEDS: buPROPion HCL 100 MG TAB PO SCH (21:36)
[2023-09-14] MEDS: ATORVASTATIN 20 MG TAB PO SCH (21:37)
[2023-09-14] MEDS: AMIODARONE HCL 200 MG TAB PO SCH (21:38)
[2023-09-14] MEDS: TEMAZEPAM 15 MG CAP PO PRN (23:47)
[2023-09-15] VITALS (33 sets, daily range): BP systolic 84–166; BP diastolic 53–118; PULSE 82–143; RESP 10–29; TEMP 97.5–98.8; O2SAT 86–98
[2023-09-15] MEDS: FINASTERIDE 5 MG TAB PO SCH (07:39)
[2023-09-15] MEDS: ASPirin-EC 81 mg tab PO SCH (07:39)
[2023-09-15] MEDS: LISINOPRIL 20 MG TAB PO SCH (07:39)
[2023-09-15] MEDS: hydroCHLOROthiazide 25 MG TAB PO SCH (07:40)
[2023-09-15] MEDS: CITALOPRAM HYDROBR 20 MG TAB PO SCH (07:40)
[2023-09-15] MEDS: METOPROLOL SUCCINATE XL 50 MG TAB PO SCH (07:40)
[2023-09-15] MEDS: METOPROLOL TARTRATE 1MG/1ML-5ML VIAL IV ONE (09:07)
[2023-09-15] MEDS: dilTIAZem 120MG ER CAP PO ONE (10:04)
[2023-09-15] MEDS: busPIRone HCL 10 MG TAB PO SCH (10:04)
[2023-09-15 12:22] LABS: Hematocrit 46.4 % (36.0-46.0); Hemoglobin 15.3 g/dL (12.2-16.2); Mean Corpuscular Hemoglobin 31.2 pg (28.0-32.0); Mean Corpuscular Hgb Conc. 32.9 g/dL (32.0-36.0); Red Blood Cells 4.89 10^6/uL (4.0-5.20); Red Cell Distribution Width 14.4 % (11.8-14.3)
[2023-09-15 12:31] LABS: Calcium 9.6 mg/dL (8.5-10.1); Chloride 104 mmol/L (98-107); Potassium 3.3 mmol/L (3.5-5.1); Sodium 140 mmol/L (136-145)
[2023-09-15 12:32] LABS: Anion Gap 18 (5-15); Carbon Dioxide 18 mmol/L (20-30)
[2023-09-15 12:35] LABS: White Blood Cell 40.4 10^3/uL (4.4-10.8)
[2023-09-15 12:37] LABS: BUN/Creatinine Ratio 6.6 (10.0-20.0); Band Neutrophils % (manual) 0; Basophils % (manual) 0 (0.0-2.0); Blast Cells 0; Blood Urea Nitrogen 9 mg/dL (9-23); Eosinophils % (manual) 0 (0-7); Glucose 240 mg/dL (74-106); Metamyelocytes % 0; Myelocytes % 0; Promyelocytes % 0; Reactive Lymphocytes 0
[2023-09-15 13:15] LABS: Lymphocytes % (manual) 1 (10.0-50.0); Monocytes % (manual) 3 (0-12); Platelet Estimate Adequate
[2023-09-15] MEDS ORDERED: SODIUM CHLORIDE 0.9% 2,100 ML IV ONE (15:00)
[2023-09-15] MEDS: SODIUM CHLORIDE 0.9% 1,000 ML IV ONE ×2 (16:05→17:15)
[2023-09-15 16:12] LABS: Lactic Acid w/Reflex 5.1 mmol/L (0.4-2.0)
[2023-09-15] MEDS: LIDOCAINE 2% JELLY 11ml (GLYDO) ONE (17:16)
[2023-09-15] MEDS: LIDOCAINE 2% JELLY 11ml (GLYDO) UR ONE (17:30)
[2023-09-15] MEDS: NOREPINEPHRINE 8 MG/250ML KIT 250 ML IV SCH (18:15)
[2023-09-15] MEDS: SUCRALFATE 1 GM/10 ML ORAL SUSP GT SCH (18:19)
[2023-09-15] MEDS: IPRATROPIUM BROM 0.5 MG/2.5ML INH SOL NEB PRN (18:56)
[2023-09-15 20:56] LABS: INR 1.3 (0.9-1.15); Prothrombin Time 13.5 sec (9.3-11.8)
[2023-09-16] VITALS (100 sets, daily range): BP systolic 72–182; BP diastolic 40–162; PULSE 74–113; RESP 13–34; TEMP 97.7–100.6; O2SAT 87–99
[2023-09-16] MEDS ORDERED: LORazepam 2MG/ML-1ML VIAL IM ONE (03:00)
[2023-09-16] MEDS: LORazepam 2MG/ML-1ML VIAL IV ONE (03:00)
[2023-09-16] MEDS: LORazepam 2MG/ML-1ML VIAL ONE (03:04)
[2023-09-16 03:27] LABS: Base Excess -7.5 mmol/L (-2.0-2.0)
[2023-09-16 03:56] LABS: Hematocrit 45.7 % (36.0-46.0); Mean Corpuscular Hemoglobin 30.2 pg (28.0-32.0); Mean Corpuscular Hgb Conc. 32.8 g/dL (32.0-36.0); Mean Corpuscular Volume 91.9 fL (80.0-100.0); Red Blood Cells 4.97 10^6/uL (4.0-5.20); Red Cell Distribution Width 14.2 % (11.8-14.3)
[2023-09-16 04:11] LABS: Alanine Aminotransferase 81 U/L (7-40); Albumin 3.3 g/dL (3.2-4.8); Alkaline Phosphatase 58 U/L (46-116); Anion Gap 13 (5-15); Aspartate Aminotransferase 64 U/L (13-40); BUN/Creatinine Ratio 14.6 (10.0-20.0); Bilirubin, Total 0.6 mg/dL (0.2-1.0); Blood Urea Nitrogen 15 mg/dL (9-23); Calcium 8.6 mg/dL (8.7-10.4); Carbon Dioxide 16 mmol/L (20-30); Chloride 107 mmol/L (98-107); Glucose 142 mg/dL (74-106); Potassium 3.1 mmol/L (3.5-5.1); Sodium 136 mmol/L (136-145); Total Protein 5.8 g/dL (5.7-8.2)
[2023-09-16 04:22] LABS: White Blood Cell 41.6 10^3/uL (4.4-10.8)
[2023-09-16 04:23] LABS: Basophils % (manual) 0 (0.0-2.0); Blast Cells 0; Eosinophils % (manual) 0 (0-7); Metamyelocytes % 0; Myelocytes % 0; Promyelocytes % 0; Reactive Lymphocytes 0
[2023-09-16] MEDS ORDERED: VANCOMYCIN PER PHARMACY 0 MG IV SCH (04:30)
[2023-09-16] MEDS: SUCCINYLCHOLINE CHLORIDE 20 MG/ML 10ML VIAL IV ONE ×2 (04:45)
[2023-09-16] MEDS: ETOMIDATE (2MG/ML) 20ML VIAL IV ONE ×2 (04:45)
[2023-09-16] MEDS: MIDAZOLAM DRIP 50 mg/50mL 50 ML IV ONE (04:58)
[2023-09-16] MEDS: MIDAZOLAM DRIP 50 mg/50mL 50 ML IV SCH ×2 (05:00→08:38)
[2023-09-16] MEDS: VANCOMYCIN 1GM/200ML 200 ML IV ONE (05:07)
[2023-09-16] MEDS: fentaNYL Drip 2500mCg/250mlNS 250 ML IV SCH (05:32)
[2023-09-16] MEDS: NOREPINEPHRINE 8 MG/250ML KIT 250 ML IV SCH (05:54)
[2023-09-16 05:55] LABS: Band Neutrophils % (manual) 6; Lymphocytes % (manual) 3 (10.0-50.0); Monocytes % (manual) 5 (0-12); Platelet Estimate Adequate
[2023-09-16] MEDS: PROPOFOL 100 ML IV SCH (06:51)
[2023-09-16] MEDS: PROPOFOL 100 ML IV ONE (06:51)
[2023-09-16 07:51] LABS: Base Excess -7.4 mmol/L (-2.0-2.0)
[2023-09-16] MEDS: ENOXAPARIN SOD 40 MG/0.4 ML SYRINGE SC ONE (10:15)
[2023-09-16 11:41] LABS: Blood Alcohol < 3.0 mg/dL (<10); Magnesium 1.2 mg/dL (1.6-2.6)
[2023-09-16] MEDS: VASOPRESSIN 20 UNIT/ML ONE (12:09)
[2023-09-16] MEDS: VASOPRESSIN 20 UNITS in SODIUM CHL 0.9% 99 ML IV SCH (12:15)
[2023-09-16] MEDS: POTASSIUM CHL 20MEQ/100ML 100 ML IV ONE ×2 (12:29→12:56)
[2023-09-16] MEDS: PHENYLEPHRINE IV 250 ML IV SCH (13:05)
[2023-09-16] MEDS: SODIUM BICARB 8.4% 50Meq/50ml SYR Vial IV ONE (13:27)
[2023-09-16 13:28] LABS: INR 1.3 (0.9-1.15); Partial Thromboplastin Time 26.2 SEC (24.5-34.5); Prothrombin Time 13.5 sec (9.3-11.8)
[2023-09-16] MEDS: PHENYLEPHRINE IV 250 ML IV ONE (13:34)
[2023-09-16] MEDS: LIDOCAINE 1% (LOCAL ANESTH.) PF 5ml SDV ID ONE (15:00)
[2023-09-16] MEDS: MEROPENEM 1GM IVPB 50 ML IV ONE (15:22)
[2023-09-16] MEDS: MICAFUNGIN SODIUM 100 MG in SODIUM CHL 0.9% 100 ML IV ONE (17:23)
[2023-09-16] MEDS: HYDROCORTISONE SOD SUCC 100 MG/2ML INJ VIAL IV ONE (17:30)
[2023-09-16] MEDS ORDERED: EPINEPHrine HCL 250 ML IV SCH (17:45)
[2023-09-16] MEDS: VANCOMYCIN 1GM/200ML 200 ML IV SCH (18:03)
[2023-09-16] MEDS: HYDROCORTISONE SOD SUCC 100 MG/2ML INJ VIAL IV SCH (18:25)
[2023-09-16] MEDS: FUROSEMIDE 100 MG/10ML VIAL IV SCH (18:25)
[2023-09-16] MEDS: PHENYLEPHRINE INJ 80 MG in SODIUM CHL 0.9% 242 ML IV SCH (18:30)
[2023-09-16] MEDS: EPINEPHrine HCL INJECTION 16 MG in D5W 5% 234 ML IV SCH (18:30)
[2023-09-16 20:15] LABS: Alanine Aminotransferase 168 U/L (7-40); Alkaline Phosphatase 51 U/L (46-116); Anion Gap 6 (5-15); Blood Urea Nitrogen 23 mg/dL (9-23); Calcium 6.6 mg/dL (8.5-10.1); Carbon Dioxide 21 mmol/L (20-30); Chloride 110 mmol/L (98-107); Glucose 125 mg/dL (74-106); Potassium 3.7 mmol/L (3.5-5.1); Sodium 137 mmol/L (136-145)
[2023-09-16 20:16] LABS: Albumin 2.5 g/dL (3.2-4.8); Bilirubin, Total 0.2 mg/dL (0.2-1.0); Total Protein 3.9 g/dL (5.7-8.2)
[2023-09-16] MEDS: NOREPINEPHRINE BITARTRATE 32 MG in SODIUM CHL 0.9% 218 ML IV SCH (20:22)
[2023-09-16] MEDS: MAGNESIUM SULFATE 1GM/100ML 100 ML IV SCH (20:24)
[2023-09-16] MEDS: MEROPENEM 1GM IVPB 50 ML IV SCH (20:24)
[2023-09-16 20:25] LABS: Aspartate Aminotransferase 138 U/L (13-40)
[2023-09-16 20:41] LABS: Free T3 1.71 pg/mL (2.3-4.2); Free T4 (Free Thyroxine) 1.34 ng/dL (0.89-1.76)
[2023-09-16 20:54] LABS: Hemoglobin 15.2 g/dL (12.2-16.2); Red Cell Distribution Width 14.9 % (11.8-14.3)
[2023-09-16 20:57] LABS: Hematocrit 47.4 % (36.0-46.0); Mean Corpuscular Hemoglobin 30.8 pg (28.0-32.0); Red Blood Cells 4.94 10^6/uL (4.0-5.20)
[2023-09-16 21:00] LABS: White Blood Cell 30.2 10^3/uL (4.4-10.8)
[2023-09-16 21:01] LABS: Basophils % (manual) 0 (0.0-2.0); Blast Cells 0; Eosinophils % (manual) 0 (0-7); Metamyelocytes % 0; Myelocytes % 0; Promyelocytes % 0; Reactive Lymphocytes 0
[2023-09-16 21:44] LABS: Lactic Acid w/Reflex 2.3 mmol/L (0.4-2.0)
[2023-09-16] MEDS: SODIUM CHLOR 0.9% PF (SALINE LOCK) 10ML VIAL/SYR IV SCH (21:55)
[2023-09-16 22:13] LABS: Band Neutrophils % (manual) 5; Lymphocytes % (manual) 5 (10.0-50.0); Monocytes % (manual) 4 (0-12); Platelet Estimate Adequate
[2023-09-17] VITALS (104 sets, daily range): BP systolic 87–129; BP diastolic 50–87; PULSE 66–159; RESP 11–42; TEMP 97.9–100.2; O2SAT 88–100
[2023-09-17 03:55] LABS: Hematocrit 41.3 % (36.0-46.0); Hemoglobin 13.6 g/dL (12.2-16.2); Mean Corpuscular Hemoglobin 30.6 pg (28.0-32.0); Mean Corpuscular Hgb Conc. 32.9 g/dL (32.0-36.0); Red Blood Cells 4.44 10^6/uL (4.0-5.20); Red Cell Distribution Width 14.6 % (11.8-14.3); White Blood Cell 29.3 10^3/uL (4.4-10.8)
[2023-09-17 03:59] LABS: Basophils % (manual) 0 (0.0-2.0); Blast Cells 0; Eosinophils % (manual) 0 (0-7); Metamyelocytes % 0; Myelocytes % 0; Promyelocytes % 0; Reactive Lymphocytes 0
[2023-09-17 04:02] LABS: Alanine Aminotransferase 240 U/L (7-40); Alkaline Phosphatase 60 U/L (46-116); Anion Gap 10 (5-15); Aspartate Aminotransferase 181 U/L (13-40); BUN/Creatinine Ratio 18.7 (10.0-20.0); Bilirubin, Total 0.3 mg/dL (0.2-1.0); Blood Urea Nitrogen 23 mg/dL (9-23); Calcium 8.5 mg/dL (8.7-10.4); Carbon Dioxide 23 mmol/L (20-30); Chloride 105 mmol/L (98-107); Glucose 177 mg/dL (74-106); Magnesium 1.9 mg/dL (1.6-2.6); Phosphorus 4.1 mg/dL (2.4-5.1); Potassium 4.1 mmol/L (3.5-5.1); Sodium 138 mmol/L (136-145); Total Protein 5.5 g/dL (5.7-8.2)
[2023-09-17 04:30] LABS: Albumin 3.2 g/dL (3.2-4.8)
[2023-09-17 04:42] LABS: Band Neutrophils % (manual) 3; Lymphocytes % (manual) 4 (10.0-50.0); Monocytes % (manual) 3 (0-12); Platelet Estimate Adequate
[2023-09-17] MEDS: ALBUTEROL SULF 2.5 MG/0.5ML(0.5%) NEB SOLN NEB SCH (06:00)
[2023-09-17] MEDS: IPRATROPIUM BROM 0.5 MG/2.5ML INH SOL NEB PRN (06:41)
[2023-09-17 08:49] LABS: Hepatitis B Surface Antigen Negative (Negative)
[2023-09-17 09:10] LABS: Hepatitis A Ab IgM Negative
[2023-09-17 09:11] LABS: Hepatitis B Core IgM Negative; Hepatitis C Antibody Negative (Negative)
[2023-09-17] MEDS: AMIODARONE HCL 200 MG TAB ONE (09:52)
[2023-09-17] MEDS: MICAFUNGIN SODIUM 100 MG in SODIUM CHL 0.9% 100 ML IV SCH (09:56)
[2023-09-17] MEDS: ENOXAPARIN SOD 40 MG/0.4 ML SYRINGE SC SCH (09:57)
[2023-09-17 11:20] LABS: Base Excess -5.7 mmol/L (-2.0-2.0)
[2023-09-17] MEDS: AMIODARONE BOLUS KIT 100 ML IV ONE ×2 (12:32→13:05)
[2023-09-17] MEDS: AMIODARONE 450mg/250ml AE 250 ML IV SCH ×3 (13:04→20:58)
[2023-09-17] MEDS: AMIODARONE 450mg/250ml AE 250 ML IV ONE (13:05)
[2023-09-17] MEDS: HYDROCORTISONE SOD SUCC 100 MG/2ML INJ VIAL IV SCH (14:54)
[2023-09-17] MEDS: SODIUM BICARB 50mEq/50ml Vial 50 ML in SOD CHL 0.45% 1,000 ML IV SCH (14:54)
[2023-09-17] MEDS ORDERED: CLINIMIX PER PHARMACY 0 ML IV SCH (17:30)
[2023-09-17] MEDS: ACCU-CHEK COMFORT CURVE STRIP VI SCH (17:52)
[2023-09-17] MEDS ORDERED: DEXTROSE (50%) 50ML SYRG IV SCH (18:00)
[2023-09-17] MEDS: InsuLIN REG 1unit/0.01ml Soln (100units/ml) SC SCH (18:03)
[2023-09-17] MEDS: DIGOXIN (250MCG/ML) 2 ML AMPULE IV ONE (20:25)
[2023-09-17] MEDS: AMINO ACID INFUSION IN D5W 1,000 ML IV SCH (20:31)
[2023-09-17 21:21] LABS: Potassium 3.3 mmol/L (3.5-5.1)
[2023-09-17 21:28] LABS: Magnesium 1.8 mg/dL (1.6-2.6)
[2023-09-17] MEDS: POTASSIUM CHL 20MEQ/100ML 100 ML IV ONE (22:43)
[2023-09-17] MEDS: MAGNESIUM SULFATE 1GM/100ML 100 ML IV ONE (22:44)
[2023-09-18] VITALS (106 sets, daily range): BP systolic 89–131; BP diastolic 48–75; PULSE 63–117; RESP 16–20; TEMP 98.2–99.1; O2SAT 93–98
[2023-09-18] MEDS: AMIODARONE 450mg/250ml AE 250 ML IV SCH ×2 (02:30→12:02)
[2023-09-18] MEDS: VANCOMYCIN 1GM/200ML 200 ML IV SCH (03:50)
[2023-09-18 04:23] LABS: Hematocrit 38.1 % (36.0-46.0); Hemoglobin 12.5 g/dL (12.2-16.2); Mean Corpuscular Hemoglobin 30.7 pg (28.0-32.0); Mean Corpuscular Hgb Conc. 32.8 g/dL (32.0-36.0); Mean Corpuscular Volume 93.5 fL (80.0-100.0); Red Blood Cells 4.07 10^6/uL (4.0-5.20); Red Cell Distribution Width 14.3 % (11.8-14.3); White Blood Cell 29.6 10^3/uL (4.4-10.8)
[2023-09-18 04:33] LABS: Band Neutrophils % (manual) 0; Basophils % (manual) 0 (0.0-2.0); Blast Cells 0; Eosinophils % (manual) 0 (0-7); Metamyelocytes % 0; Myelocytes % 0; Promyelocytes % 0; Reactive Lymphocytes 0
[2023-09-18 04:41] LABS: Alanine Aminotransferase 273 U/L (7-40); Alkaline Phosphatase 72 U/L (46-116)
[2023-09-18 04:42] LABS: Anion Gap 5 (5-15); Aspartate Aminotransferase 136 U/L (13-40); Bilirubin, Total 0.6 mg/dL (0.2-1.0); Blood Urea Nitrogen 18 mg/dL (9-23); Calcium 8.7 mg/dL (8.7-10.4); Carbon Dioxide 31 mmol/L (20-30); Chloride 102 mmol/L (98-107); Glucose 197 mg/dL (74-106); Phosphorus 1.6 mg/dL (2.4-5.1); Potassium 3.2 mmol/L (3.5-5.1); Sodium 138 mmol/L (136-145); Total Protein 5.1 g/dL (5.7-8.2)
[2023-09-18 05:11] LABS: Lymphocytes % (manual) 4 (10.0-50.0); Monocytes % (manual) 1 (0-12); Platelet Estimate Adequate
[2023-09-18] MEDS: POTASSIUM CHL 20MEQ/100ML 100 ML IV SCH (06:50)
[2023-09-18] MEDS: POTASSIUM PHOSPHATE 26.4 MEQ in SODIUM CHL 0.9% 100 ML IV ONE (09:46)
[2023-09-18] MEDS: ENOXAPARIN SOD 80 MG/0.8ML SYRINGE SC SCH (09:46)
[2023-09-18 10:03] LABS: Base Excess 4.5 mmol/L (-2.0-2.0)
[2023-09-18] MEDS ORDERED: Jevity 1.2 Cal/Fiber 1 Liter GT SCH (14:15)
[2023-09-18 18:20] LABS: Magnesium 1.8 mg/dL (1.6-2.6)
[2023-09-18 18:22] LABS: Phosphorus 1.5 mg/dL (2.4-5.1)
[2023-09-18] MEDS: HYDROCORTISONE SOD SUCC 100 MG/2ML INJ VIAL IV SCH (22:19)
[2023-09-19] VITALS (101 sets, daily range): BP systolic 89–131; BP diastolic 51–73; PULSE 72–86; RESP 12–28; TEMP 98.2–99.1; O2SAT 91–97
[2023-09-19 04:13] LABS: Basophils # (auto) 0.1 10 ^3/uL (0-0.2); Basophils % (auto) 0.4 % (0.0-2.0); Eosinophils # (auto) 0 10 ^3/uL (0-0.8); Hematocrit 36.5 % (36.0-46.0); Lymphocytes # (auto) 0.4 10 ^3/uL (0.4-5.4); Lymphocytes % (auto) 2.1 % (10.0-50.0); Mean Corpuscular Hemoglobin 30.7 pg (28.0-32.0); Mean Corpuscular Hgb Conc. 32.9 g/dL (32.0-36.0); Mean Corpuscular Volume 93.2 fL (80.0-100.0); Monocytes # (auto) 1.5 10 ^3/uL (0-1.3); Monocytes % (auto) 7.1 % (0.0-12.0); Neutrophils % (auto) 90.4 % (37.0-80.0); Nucleated Red Blood Cells % 0.2 %; Red Blood Cells 3.91 10^6/uL (4.0-5.20); Red Cell Distribution Width 14.1 % (11.8-14.3)
[2023-09-19 04:50] LABS: Alanine Aminotransferase 332 U/L (7-40); Alkaline Phosphatase 137 U/L (46-116); Anion Gap 2 (5-15); Aspartate Aminotransferase 192 U/L (13-40); BUN/Creatinine Ratio 26.1 (10.0-20.0); Bilirubin, Total 1.8 mg/dL (0.2-1.0); Blood Urea Nitrogen 18 mg/dL (9-23); Calcium 8.5 mg/dL (8.5-10.1); Carbon Dioxide 40 mmol/L (20-30); Chloride 99 mmol/L (98-107); Glucose 139 mg/dL (74-106); Phosphorus 1.7 mg/dL (2.4-5.1); Potassium 2.9 mmol/L (3.5-5.1); Sodium 141 mmol/L (136-145); Total Protein 5.1 g/dL (5.7-8.2)
[2023-09-19 05:16] LABS: Magnesium 1.9 mg/dL (1.6-2.6)
[2023-09-19] MEDS: POTASSIUM CHL 20MEQ/100ML 100 ML IV SCH (05:43)
[2023-09-19 07:32] LABS: Base Excess 10.2 mmol/L (-2.0-2.0)
[2023-09-19 13:26] LABS: Base Excess 12.3 mmol/L (-2.0-2.0)
[2023-09-19] MEDS ORDERED: POTASSIUM CHLORIDE 80 MEQ, LIDOCAINE 1% (LOCAL ANESTH.) 6 ML in SODIUM CHL 0.9% 500 ML IV ONE (14:15)
[2023-09-19] MEDS: POTASSIUM CHLORIDE 40 MEQ, LIDOCAINE 1% (LOCAL ANESTH.) 4 ML in SODIUM CHL 0.9% 250 ML IV ONE (14:30)
[2023-09-19 16:43] LABS: Chloride 101 mmol/L (98-107); Potassium 3.7 mmol/L (3.5-5.1); Sodium 142 mmol/L (136-145)
[2023-09-19 16:45] LABS: Calcium 8.6 mg/dL (8.5-10.1)
[2023-09-19 16:50] LABS: Anion Gap 0.99999 (5-15); BUN/Creatinine Ratio 31.8 (10.0-20.0); Blood Urea Nitrogen 21 mg/dL (9-23); Glucose 137 mg/dL (74-106)
[2023-09-19 16:52] LABS: Carbon Dioxide > 40 mmol/L (20-30)
[2023-09-19] MEDS: POTASSIUM PHOSPHATE 44 MEQ in D5W 5% 250 ML IV ONE (18:30)
[2023-09-19] MEDS: ENOXAPARIN SOD 100 MG/1 ML SYRINGE SC SCH (22:53)
[2023-09-20] VITALS (90 sets, daily range): BP systolic 108–143; BP diastolic 53–74; PULSE 63–76; RESP 12–23; TEMP 98.4–99; O2SAT 89–98
[2023-09-20 04:04] LABS: Basophils # (auto) 0 10 ^3/uL (0-0.2); Basophils % (auto) 0.1 % (0.0-2.0); Eosinophils # (auto) 0 10 ^3/uL (0-0.8); Hematocrit 35.1 % (36.0-46.0); Hemoglobin 11.6 g/dL (12.2-16.2); Lymphocytes # (auto) 0.4 10 ^3/uL (0.4-5.4); Lymphocytes % (auto) 1.8 % (10.0-50.0); Mean Corpuscular Hemoglobin 30.5 pg (28.0-32.0); Mean Corpuscular Hgb Conc. 33.1 g/dL (32.0-36.0); Mean Corpuscular Volume 92.1 fL (80.0-100.0); Monocytes # (auto) 1.5 10 ^3/uL (0-1.3); Monocytes % (auto) 6.7 % (0.0-12.0); Neutrophils # (auto) 20.7 10 ^3/uL (1.6-8.6); Neutrophils % (auto) 91.4 % (37.0-80.0); Nucleated Red Blood Cells % 0.1 %; Red Blood Cells 3.81 10^6/uL (4.0-5.20); Red Cell Distribution Width 14.6 % (11.8-14.3); White Blood Cell 22.6 10^3/uL (4.4-10.8)
[2023-09-20 04:36] LABS: Alanine Aminotransferase 313 U/L (7-40); Alkaline Phosphatase 245 U/L (46-116); Aspartate Aminotransferase 150 U/L (13-40); BUN/Creatinine Ratio 37.5 (10.0-20.0); Blood Urea Nitrogen 24 mg/dL (9-23); Calcium 8.9 mg/dL (8.7-10.4); Chloride 99 mmol/L (98-107); Glucose 158 mg/dL (74-106); Magnesium 1.9 mg/dL (1.6-2.6); Phosphorus 3.2 mg/dL (2.4-5.1); Potassium 3.5 mmol/L (3.5-5.1); Sodium 141 mmol/L (136-145)
[2023-09-20 04:37] LABS: Bilirubin, Total 1.5 mg/dL (0.2-1.0); Total Protein 5.3 g/dL (5.7-8.2)
[2023-09-20 04:43] LABS: Anion Gap 1.99999 (5-15); Carbon Dioxide > 40 mmol/L (20-30)
[2023-09-20 07:16] LABS: Base Excess 15.2 mmol/L (-2.0-2.0)
[2023-09-20] MEDS: acetaZOLAMIDE SODIUM 500 MG VL IV ONE (13:38)
[2023-09-20] MEDS: VANCOMYCIN 1GM/200ML 200 ML IV SCH (13:39)
[2023-09-20] MEDS: AMIODARONE HCL 200 MG TAB PO SCH (22:04)
[2023-09-21] VITALS (110 sets, daily range): BP systolic 106–145; BP diastolic 50–75; PULSE 64–80; RESP 17–24; TEMP 98.1–98.8; O2SAT 90–97
[2023-09-21 03:32] LABS: Basophils # (auto) 0 10 ^3/uL (0-0.2); Basophils % (auto) 0.2 % (0.0-2.0); Eosinophils # (auto) 0 10 ^3/uL (0-0.8); Hematocrit 34.2 % (36.0-46.0); Hemoglobin 11.3 g/dL (12.2-16.2); Lymphocytes # (auto) 0.6 10 ^3/uL (0.4-5.4); Lymphocytes % (auto) 2.6 % (10.0-50.0); Mean Corpuscular Hemoglobin 30.9 pg (28.0-32.0); Mean Corpuscular Hgb Conc. 33.1 g/dL (32.0-36.0); Mean Corpuscular Volume 93.2 fL (80.0-100.0); Monocytes # (auto) 1.7 10 ^3/uL (0-1.3); Monocytes % (auto) 7.6 % (0.0-12.0); Neutrophils # (auto) 19.6 10 ^3/uL (1.6-8.6); Neutrophils % (auto) 89.6 % (37.0-80.0); Red Blood Cells 3.67 10^6/uL (4.0-5.20); Red Cell Distribution Width 14.7 % (11.8-14.3); White Blood Cell 21.9 10^3/uL (4.4-10.8)
[2023-09-21 03:53] LABS: Alanine Aminotransferase 240 U/L (7-40); Alkaline Phosphatase 298 U/L (46-116); Aspartate Aminotransferase 86 U/L (13-40); BUN/Creatinine Ratio 52.5 (10.0-20.0); Bilirubin, Total 1.1 mg/dL (0.2-1.0); Blood Urea Nitrogen 31 mg/dL (9-23); Chloride 100 mmol/L (98-107); Glucose 136 mg/dL (74-106); Magnesium 2.1 mg/dL (1.6-2.6); Phosphorus 3.4 mg/dL (2.4-5.1); Sodium 141 mmol/L (136-145); Total Protein 5.4 g/dL (5.7-8.2)
[2023-09-21 04:02] LABS: Anion Gap 0.99999 (5-15)
[2023-09-21 04:03] LABS: Carbon Dioxide > 40 mmol/L (20-30)
[2023-09-21] MEDS: POTASSIUM CHL 20MEQ/100ML 100 ML IV ONE (06:07)
[2023-09-21 07:28] LABS: Base Excess 13.2 mmol/L (-2.0-2.0)
[2023-09-21] MEDS: acetaZOLAMIDE SODIUM 500 MG VL IV SCH (09:52)
[2023-09-21] MEDS: POTASSIUM CHL 20MEQ/100ML 100 ML IV SCH ×2 (09:53→16:29)
[2023-09-21] MEDS ORDERED: TPN PER PHARMACY 0 ML IV SCH (11:00)
[2023-09-21] MEDS ORDERED: VANCOMYCIN 1GM/200ML 200 ML IV SCH (17:00)
[2023-09-21] MEDS: TPN PER PHARMACY IV NR (19:56)
[2023-09-22] VITALS (107 sets, daily range): BP systolic 120–211; BP diastolic 55–116; PULSE 58–125; RESP 8–27; TEMP 97.7–99.3; O2SAT 88–100
[2023-09-22 04:26] LABS: Alanine Aminotransferase 183 U/L (7-40); Alkaline Phosphatase 425 U/L (46-116); Anion Gap 2 (5-15); Aspartate Aminotransferase 86 U/L (13-40); BUN/Creatinine Ratio 54.7 (10.0-20.0); Blood Urea Nitrogen 29 mg/dL (9-23); Calcium 8.8 mg/dL (8.7-10.4); Carbon Dioxide 35 mmol/L (20-30); Chloride 106 mmol/L (98-107); Glucose 121 mg/dL (74-106); Magnesium 2.3 mg/dL (1.6-2.6); Potassium 3.4 mmol/L (3.5-5.1); Sodium 143 mmol/L (136-145)
[2023-09-22 04:27] LABS: Albumin 2.8 g/dL (3.2-4.8); Bilirubin, Total 1.2 mg/dL (0.2-1.0); Phosphorus 2.3 mg/dL (2.4-5.1); Total Protein 5.2 g/dL (5.7-8.2)
[2023-09-22 07:34] LABS: Base Excess 12.4 mmol/L (-2.0-2.0)
[2023-09-22 10:18] LABS: Basophils # (auto) 0.1 10 ^3/uL (0-0.2); Basophils % (auto) 0.4 % (0.0-2.0); Eosinophils # (auto) 0.1 10 ^3/uL (0-0.8); Eosinophils % (auto) 0.4 % (0.0-7.0); Hematocrit 34.6 % (36.0-46.0); Hemoglobin 11.4 g/dL (12.2-16.2); Lymphocytes # (auto) 1.6 10 ^3/uL (0.4-5.4); Lymphocytes % (auto) 10.5 % (10.0-50.0); Mean Corpuscular Hemoglobin 30.9 pg (28.0-32.0); Mean Corpuscular Hgb Conc. 32.9 g/dL (32.0-36.0); Mean Corpuscular Volume 93.9 fL (80.0-100.0); Monocytes # (auto) 1.9 10 ^3/uL (0-1.3); Monocytes % (auto) 12.7 % (0.0-12.0); Neutrophils # (auto) 11.5 10 ^3/uL (1.6-8.6); Nucleated Red Blood Cells % 0.1 %; Red Blood Cells 3.68 10^6/uL (4.0-5.20); White Blood Cell 15.1 10^3/uL (4.4-10.8)
[2023-09-22] MEDS: HYDROCORTISONE SOD SUCC 100 MG/2ML INJ VIAL IV SCH (11:26)
[2023-09-22] MEDS: VANCOMYCIN 1GM/200ML 200 ML IV SCH (11:26)
[2023-09-22] MEDS: POTASSIUM PHOSPHATE 26.4 MEQ in SODIUM CHL 0.9% 100 ML IV ONE (11:27)
[2023-09-22] MEDS: FUROSEMIDE 40 MG/4 ML VIAL IV ONE (14:30)
[2023-09-22] MEDS: hydrALAZINE HCL 20 MG/ML VL IV PRN (18:13)
[2023-09-22] MEDS: TPN PER PHARMACY IV NR (19:49)
[2023-09-23] VITALS (105 sets, daily range): BP systolic 96–204; BP diastolic 50–101; PULSE 66–100; RESP 12–33; TEMP 95.9–99.3; O2SAT 90–100
[2023-09-23] MEDS: GASTROGRAFIN 120 ML SOL ONE (01:28)
[2023-09-23 04:42] LABS: Basophils # (auto) 0 10 ^3/uL (0-0.2); Basophils % (auto) 0.1 % (0.0-2.0); Eosinophils # (auto) 0.1 10 ^3/uL (0-0.8); Eosinophils % (auto) 0.3 % (0.0-7.0); Hematocrit 36.1 % (36.0-46.0); Hemoglobin 11.9 g/dL (12.2-16.2); Lymphocytes # (auto) 1.5 10 ^3/uL (0.4-5.4); Lymphocytes % (auto) 7.6 % (10.0-50.0); Mean Corpuscular Hemoglobin 31.2 pg (28.0-32.0); Mean Corpuscular Hgb Conc. 32.9 g/dL (32.0-36.0); Mean Corpuscular Volume 94.6 fL (80.0-100.0); Monocytes # (auto) 1.8 10 ^3/uL (0-1.3); Monocytes % (auto) 9.2 % (0.0-12.0); Neutrophils # (auto) 16.3 10 ^3/uL (1.6-8.6); Neutrophils % (auto) 82.8 % (37.0-80.0); Red Blood Cells 3.82 10^6/uL (4.0-5.20); White Blood Cell 19.7 10^3/uL (4.4-10.8)
[2023-09-23 04:54] LABS: Alanine Aminotransferase 196 U/L (7-40); Albumin 2.9 g/dL (3.2-4.8); Alkaline Phosphatase 544 U/L (46-116); Anion Gap 6 (5-15); Aspartate Aminotransferase 131 U/L (13-40); BUN/Creatinine Ratio 52.9 (10.0-20.0); Blood Urea Nitrogen 27 mg/dL (9-23); Calcium 8.8 mg/dL (8.7-10.4); Carbon Dioxide 31 mmol/L (20-30); Chloride 109 mmol/L (98-107); Glucose 116 mg/dL (74-106); Magnesium 2.3 mg/dL (1.6-2.6); Sodium 146 mmol/L (136-145)
[2023-09-23 04:55] LABS: Bilirubin, Total 1.1 mg/dL (0.2-1.0); Phosphorus 3.1 mg/dL (2.4-5.1); Total Protein 5.6 g/dL (5.7-8.2)
[2023-09-23] MEDS: POTASSIUM CHL 20MEQ/100ML 100 ML IV ONE (06:20)
[2023-09-23 07:37] LABS: Base Excess 9.1 mmol/L (-2.0-2.0)
[2023-09-23] MEDS ORDERED: Jevity 1.2 Cal/Fiber 1 Liter GT SCH (09:30)
[2023-09-23] MEDS ORDERED: FUROSEMIDE 40 MG/4 ML VIAL IV SCH (10:00)
[2023-09-23] MEDS: FUROSEMIDE 40 MG/4 ML VIAL IV SCH (10:02)
[2023-09-23] MEDS: POTASSIUM CHL 20MEQ/100ML 100 ML IV SCH (10:03)
[2023-09-23] MEDS: PROPOFOL 100 ML IV ONE (10:31)
[2023-09-23] MEDS: PROPOFOL 100 ML IV SCH (10:31)
[2023-09-23 18:27] LABS: Chloride 111 mmol/L (98-107); Potassium 3.7 mmol/L (3.5-5.1); Sodium 146 mmol/L (136-145)
[2023-09-23 18:28] LABS: Anion Gap 5 (5-15); Calcium 8.2 mg/dL (8.7-10.4); Carbon Dioxide 30 mmol/L (20-30)
[2023-09-23 18:33] LABS: Blood Urea Nitrogen 27 mg/dL (9-23); Glucose 130 mg/dL (74-106)
[2023-09-23 18:34] LABS: Magnesium 2.2 mg/dL (1.6-2.6)
[2023-09-23 18:35] LABS: Phosphorus 3.4 mg/dL (2.4-5.1)
[2023-09-23] MEDS: TPN PER PHARMACY IV NR (19:32)
[2023-09-23 20:55] LABS: Alanine Aminotransferase 195 U/L (7-40); Albumin 2.8 g/dL (3.2-4.8); Alkaline Phosphatase 542 U/L (46-116); Anion Gap 2 (5-15); Aspartate Aminotransferase 131 U/L (13-40); BUN/Creatinine Ratio 50.9 (10.0-20.0); Blood Urea Nitrogen 27 mg/dL (9-23); Calcium 8.5 mg/dL (8.7-10.4); Carbon Dioxide 33 mmol/L (20-30); Chloride 110 mmol/L (98-107); Glucose 121 mg/dL (74-106); Potassium 3.6 mmol/L (3.5-5.1); Sodium 145 mmol/L (136-145)
[2023-09-23 20:56] LABS: Bilirubin, Total 0.8 mg/dL (0.2-1.0); Total Protein 5.6 g/dL (5.7-8.2)
[2023-09-24] VITALS (105 sets, daily range): BP systolic 92–160; BP diastolic 52–150; PULSE 70–83; RESP 14–23; TEMP 97–98.6; O2SAT 92–99
[2023-09-24 04:08] LABS: Basophils # (auto) 0.1 10 ^3/uL (0-0.2); Basophils % (auto) 0.6 % (0.0-2.0); Eosinophils # (auto) 0.1 10 ^3/uL (0-0.8); Eosinophils % (auto) 0.7 % (0.0-7.0); Hematocrit 34.9 % (36.0-46.0); Hemoglobin 11.5 g/dL (12.2-16.2); Lymphocytes # (auto) 1.6 10 ^3/uL (0.4-5.4); Lymphocytes % (auto) 11.4 % (10.0-50.0); Mean Corpuscular Hemoglobin 30.3 pg (28.0-32.0); Mean Corpuscular Hgb Conc. 32.9 g/dL (32.0-36.0); Mean Corpuscular Volume 92.2 fL (80.0-100.0); Monocytes # (auto) 1.4 10 ^3/uL (0-1.3); Monocytes % (auto) 10.1 % (0.0-12.0); Neutrophils % (auto) 77.2 % (37.0-80.0); Red Blood Cells 3.78 10^6/uL (4.0-5.20); White Blood Cell 14.2 10^3/uL (4.4-10.8)
[2023-09-24 04:31] LABS: Alanine Aminotransferase 174 U/L (7-40); Albumin 2.7 g/dL (3.2-4.8); Alkaline Phosphatase 508 U/L (46-116); Anion Gap 2 (5-15); Aspartate Aminotransferase 114 U/L (13-40); Blood Urea Nitrogen 24 mg/dL (9-23); Calcium 8.1 mg/dL (8.5-10.1); Carbon Dioxide 35 mmol/L (20-30); Chloride 110 mmol/L (98-107); Glucose 120 mg/dL (74-106); Potassium 3.1 mmol/L (3.5-5.1); Sodium 147 mmol/L (136-145); Triglycerides 96 mg/dL (< 150)
[2023-09-24 04:32] LABS: Bilirubin, Total 0.7 mg/dL (0.2-1.0); Total Protein 5.4 g/dL (5.7-8.2)
[2023-09-24] MEDS: POTASSIUM CHL 20MEQ/100ML 100 ML IV SCH (09:43)
[2023-09-24] MEDS: FUROSEMIDE 40 MG/4 ML VIAL IV SCH (10:00)
[2023-09-24] MEDS: MEROPENEM 1GM IVPB 50 ML IV SCH (13:07)
[2023-09-24] MEDS: acetaZOLAMIDE SODIUM 500 MG VL IV ONE (17:26)
[2023-09-24] MEDS: TPN PER PHARMACY IV NR (20:13)
[2023-09-24] MEDS: VANCOMYCIN 1GM/200ML 200 ML IV SCH (21:48)
[2023-09-25] VITALS (111 sets, daily range): BP systolic 94–164; BP diastolic 57–90; PULSE 78–92; RESP 13–22; TEMP 98.1–99; O2SAT 93–99
[2023-09-25 04:19] LABS: Basophils # (auto) 0.1 10 ^3/uL (0-0.2); Basophils % (auto) 0.4 % (0.0-2.0); Eosinophils # (auto) 0.2 10 ^3/uL (0-0.8); Eosinophils % (auto) 1.5 % (0.0-7.0); Hematocrit 37.5 % (36.0-46.0); Hemoglobin 12.3 g/dL (12.2-16.2); Lymphocytes # (auto) 1.1 10 ^3/uL (0.4-5.4); Lymphocytes % (auto) 7.2 % (10.0-50.0); Mean Corpuscular Hemoglobin 30.6 pg (28.0-32.0); Mean Corpuscular Hgb Conc. 32.7 g/dL (32.0-36.0); Mean Corpuscular Volume 93.7 fL (80.0-100.0); Monocytes # (auto) 1.6 10 ^3/uL (0-1.3); Monocytes % (auto) 10.8 % (0.0-12.0); Neutrophils # (auto) 11.9 10 ^3/uL (1.6-8.6); Neutrophils % (auto) 80.1 % (37.0-80.0); Red Blood Cells 4.01 10^6/uL (4.0-5.20); Red Cell Distribution Width 15.1 % (11.8-14.3); White Blood Cell 14.9 10^3/uL (4.4-10.8)
[2023-09-25 04:44] LABS: Alanine Aminotransferase 260 U/L (7-40); Alkaline Phosphatase 584 U/L (46-116); Anion Gap 2 (5-15); Aspartate Aminotransferase 179 U/L (13-40); BUN/Creatinine Ratio 41.1 (10.0-20.0); Bilirubin, Total 1.7 mg/dL (0.2-1.0); Blood Urea Nitrogen 23 mg/dL (9-23); Calcium 8.6 mg/dL (8.5-10.1); Carbon Dioxide 34 mmol/L (20-30); Chloride 109 mmol/L (98-107); Glucose 124 mg/dL (74-106); Magnesium 2.1 mg/dL (1.6-2.6); Phosphorus 3.8 mg/dL (2.4-5.1); Potassium 4.1 mmol/L (3.5-5.1); Sodium 145 mmol/L (136-145); Total Protein 6.2 g/dL (5.7-8.2)
[2023-09-25 08:45] LABS: Base Excess 4.4 mmol/L (-2.0-2.0)
[2023-09-25] MEDS: fentaNYL Drip 2500mCg/250mlNS 250 ML IV SCH (18:00)
[2023-09-25] MEDS: TPN PER PHARMACY IV NR (20:23)
[2023-09-26] VITALS (116 sets, daily range): BP systolic 97–168; BP diastolic 55–91; PULSE 73–89; RESP 13–21; TEMP 96.8–99.3; O2SAT 92–98
[2023-09-26 04:26] LABS: Basophils # (auto) 0.1 10 ^3/uL (0-0.2); Basophils % (auto) 0.7 % (0.0-2.0); Eosinophils # (auto) 0.3 10 ^3/uL (0-0.8); Eosinophils % (auto) 2.5 % (0.0-7.0); Hematocrit 35.5 % (36.0-46.0); Hemoglobin 11.5 g/dL (12.2-16.2); Lymphocytes # (auto) 1.4 10 ^3/uL (0.4-5.4); Lymphocytes % (auto) 11.9 % (10.0-50.0); Mean Corpuscular Hemoglobin 30.2 pg (28.0-32.0); Mean Corpuscular Hgb Conc. 32.4 g/dL (32.0-36.0); Mean Corpuscular Volume 93.3 fL (80.0-100.0); Monocytes # (auto) 1.1 10 ^3/uL (0-1.3); Monocytes % (auto) 8.9 % (0.0-12.0); Neutrophils # (auto) 9.2 10 ^3/uL (1.6-8.6); Red Cell Distribution Width 15.1 % (11.8-14.3); White Blood Cell 12.1 10^3/uL (4.4-10.8)
[2023-09-26 04:47] LABS: Alanine Aminotransferase 234 U/L (7-40); Albumin 2.8 g/dL (3.2-4.8); Alkaline Phosphatase 503 U/L (46-116); Anion Gap 2 (5-15); Aspartate Aminotransferase 147 U/L (13-40); BUN/Creatinine Ratio 42.9 (10.0-20.0); Bilirubin, Total 1.7 mg/dL (0.2-1.0); Blood Urea Nitrogen 24 mg/dL (9-23); Calcium 8.5 mg/dL (8.7-10.4); Carbon Dioxide 33 mmol/L (20-30); Chloride 108 mmol/L (98-107); Glucose 126 mg/dL (74-106); Magnesium 2.1 mg/dL (1.6-2.6); Phosphorus 3.1 mg/dL (2.4-5.1); Potassium 4.1 mmol/L (3.5-5.1); Sodium 143 mmol/L (136-145); Total Protein 6.1 g/dL (5.7-8.2)
[2023-09-26 07:04] LABS: Base Excess 5.3 mmol/L (-2.0-2.0)
[2023-09-26] MEDS: TPN PER PHARMACY IV NR (20:19)
[2023-09-27] VITALS (113 sets, daily range): BP systolic 95–150; BP diastolic 52–87; PULSE 73–94; RESP 13–22; TEMP 97–99.1; O2SAT 92–98
[2023-09-27 04:12] LABS: Alanine Aminotransferase 210 U/L (7-40); Albumin 2.7 g/dL (3.2-4.8); Alkaline Phosphatase 546 U/L (46-116); Anion Gap 0 (5-15); Aspartate Aminotransferase 147 U/L (13-40); BUN/Creatinine Ratio 41.4 (10.0-20.0); Bilirubin, Total 1.8 mg/dL (0.2-1.0); Blood Urea Nitrogen 24 mg/dL (9-23); Calcium 8.5 mg/dL (8.7-10.4); Carbon Dioxide 34 mmol/L (20-30); Chloride 107 mmol/L (98-107); Glucose 124 mg/dL (74-106); Magnesium 2.1 mg/dL (1.6-2.6); Phosphorus 3.4 mg/dL (2.4-5.1); Sodium 141 mmol/L (136-145); Total Protein 6.1 g/dL (5.7-8.2)
[2023-09-27 04:17] LABS: Basophils # (auto) 0.1 10 ^3/uL (0-0.2); Basophils % (auto) 1.1 % (0.0-2.0); Eosinophils # (auto) 0.3 10 ^3/uL (0-0.8); Eosinophils % (auto) 2.6 % (0.0-7.0); Hematocrit 34.4 % (36.0-46.0); Hemoglobin 11.4 g/dL (12.2-16.2); Lymphocytes # (auto) 1.3 10 ^3/uL (0.4-5.4); Lymphocytes % (auto) 13.4 % (10.0-50.0); Mean Corpuscular Hgb Conc. 33.2 g/dL (32.0-36.0); Mean Corpuscular Volume 93.6 fL (80.0-100.0); Monocytes # (auto) 1.1 10 ^3/uL (0-1.3); Neutrophils # (auto) 7.2 10 ^3/uL (1.6-8.6); Neutrophils % (auto) 71.9 % (37.0-80.0); Red Blood Cells 3.68 10^6/uL (4.0-5.20); Red Cell Distribution Width 14.9 % (11.8-14.3)
[2023-09-27] MEDS: LACTULOSE 20Gm/30ML SOLN PO PRN (17:52)
[2023-09-27] MEDS: TPN PER PHARMACY IV NR (20:50)
[2023-09-28] VITALS (104 sets, daily range): BP systolic 99–181; BP diastolic 54–110; PULSE 78–96; RESP 14–25; TEMP 97.7–99.3; O2SAT 92–100
[2023-09-28 04:02] LABS: Basophils # (auto) 0.1 10 ^3/uL (0-0.2); Basophils % (auto) 0.7 % (0.0-2.0); Eosinophils # (auto) 0.2 10 ^3/uL (0-0.8); Eosinophils % (auto) 1.3 % (0.0-7.0); Hematocrit 35.5 % (36.0-46.0); Hemoglobin 11.6 g/dL (12.2-16.2); Lymphocytes # (auto) 0.9 10 ^3/uL (0.4-5.4); Mean Corpuscular Hemoglobin 30.2 pg (28.0-32.0); Mean Corpuscular Hgb Conc. 32.7 g/dL (32.0-36.0); Mean Corpuscular Volume 92.4 fL (80.0-100.0); Monocytes # (auto) 1.2 10 ^3/uL (0-1.3); Neutrophils # (auto) 9.2 10 ^3/uL (1.6-8.6); Red Blood Cells 3.85 10^6/uL (4.0-5.20); Red Cell Distribution Width 14.9 % (11.8-14.3); White Blood Cell 11.5 10^3/uL (4.4-10.8)
[2023-09-28 04:15] LABS: INR 1.01 (0.9-1.15); Partial Thromboplastin Time 25.6 SEC (24.5-34.5); Prothrombin Time 10.7 sec (9.3-11.8)
[2023-09-28 04:18] LABS: Alanine Aminotransferase 256 U/L (7-40); Albumin 2.9 g/dL (3.2-4.8); Alkaline Phosphatase 746 U/L (46-116); Anion Gap 2 (5-15); Aspartate Aminotransferase 207 U/L (13-40); BUN/Creatinine Ratio 36.7 (10.0-20.0); Blood Urea Nitrogen 22 mg/dL (9-23); Calcium 8.6 mg/dL (8.5-10.1); Carbon Dioxide 33 mmol/L (20-30); Chloride 106 mmol/L (98-107); Glucose 116 mg/dL (74-106); Phosphorus 4.1 mg/dL (2.4-5.1); Potassium 4.3 mmol/L (3.5-5.1); Sodium 141 mmol/L (136-145); Triglycerides 208 mg/dL (< 150)
[2023-09-28 04:19] LABS: Bilirubin, Total 1.7 mg/dL (0.2-1.0); Total Protein 6.4 g/dL (5.7-8.2)
[2023-09-28 05:30] LABS: Erythrocyte Sedimentation Rate 87 mm/hr (0-20)
[2023-09-28 07:22] LABS: Base Excess 5.6 mmol/L (-2.0-2.0)
[2023-09-28 11:07] LABS: % Iron Saturation 32.6 % (15-50)
[2023-09-28] MEDS: LIDOCAINE 2%HCL (LOCAL ANESTH.) INJ 20ML MDV ONE (12:48)
[2023-09-28] MEDS: IOHEXOL 350 MG/ML 100ML IJ ONE (12:48)
[2023-09-28] MEDS: MIDAZOLAM HCL 2MG/2ML 2ml VIAL (1mg/ml) ONE (13:49)
[2023-09-28] MEDS: fentaNYL CITRATE 100 MCG/2 ML VL ONE (13:50)
[2023-09-28] MEDS: hydrALAZINE HCL 20 MG/ML VL ONE (13:50)
[2023-09-28] MEDS: TPN PER PHARMACY IV NR (20:00)
[2023-09-29] VITALS (106 sets, daily range): BP systolic 114–191; BP diastolic 70–128; PULSE 82–127; RESP 11–25; TEMP 98.2–100.6; O2SAT 91–99
[2023-09-29 04:03] LABS: Basophils # (auto) 0.1 10 ^3/uL (0-0.2); Basophils % (auto) 0.7 % (0.0-2.0); Eosinophils # (auto) 0.2 10 ^3/uL (0-0.8); Eosinophils % (auto) 1.4 % (0.0-7.0); Hematocrit 36.8 % (36.0-46.0); Hemoglobin 11.9 g/dL (12.2-16.2); Lymphocytes # (auto) 1.2 10 ^3/uL (0.4-5.4); Mean Corpuscular Hgb Conc. 32.3 g/dL (32.0-36.0); Mean Corpuscular Volume 92.8 fL (80.0-100.0); Monocytes # (auto) 1.1 10 ^3/uL (0-1.3); Monocytes % (auto) 8.2 % (0.0-12.0); Neutrophils # (auto) 10.4 10 ^3/uL (1.6-8.6); Neutrophils % (auto) 80.7 % (37.0-80.0); Red Blood Cells 3.96 10^6/uL (4.0-5.20); Red Cell Distribution Width 15.1 % (11.8-14.3); White Blood Cell 12.9 10^3/uL (4.4-10.8)
[2023-09-29 04:23] LABS: Alanine Aminotransferase 228 U/L (7-40); Alkaline Phosphatase 605 U/L (46-116); Anion Gap 3 (5-15); Aspartate Aminotransferase 129 U/L (13-40); BUN/Creatinine Ratio 36.8 (10.0-20.0); Bilirubin, Total 0.9 mg/dL (0.2-1.0); Blood Urea Nitrogen 21 mg/dL (9-23); Calcium 8.7 mg/dL (8.7-10.4); Carbon Dioxide 33 mmol/L (20-30); Chloride 104 mmol/L (98-107); Glucose 131 mg/dL (74-106); Magnesium 1.9 mg/dL (1.6-2.6); Potassium 3.8 mmol/L (3.5-5.1); Sodium 140 mmol/L (136-145)
[2023-09-29 04:24] LABS: Total Protein 6.7 g/dL (5.7-8.2)
[2023-09-29 06:06] LABS: CMV IgG Antibody <0.60 U/mL (0.00-0.59); CMV IgM Antibody <30.0 AU/mL (0.0-29.9); EBV Ab VCA IgM Antibody <36.0 U/mL (0.0-35.9)
[2023-09-29 06:56] LABS: Base Excess 5.8 mmol/L (-2.0-2.0)
[2023-09-29 09:08] LABS: Base Excess 7.3 mmol/L (-2.0-2.0)
[2023-09-29] MEDS ORDERED: methylPREDNISolone SOD SUCC 40 MG/ML VL IV ONE (09:30)
[2023-09-29] MEDS ORDERED: methylPREDNISolone ACETATE 80 MG/ML VL IM ONE (09:30)
[2023-09-29] MEDS ORDERED: FUROSEMIDE 20 MG/2 ML VIAL IV ONE (09:30)
[2023-09-29] MEDS: methylPREDNISolone SOD SUCC 40 MG/ML VL ONE (09:37)
[2023-09-29] MEDS: FUROSEMIDE 40 MG/4 ML VIAL IV SCH (10:21)
[2023-09-29] MEDS: methylPREDNISolone SOD SUCC 40 MG/ML VL IV ONE (10:22)
[2023-09-29] MEDS ORDERED: MORPHINE SULFATE INJ 2 MG/ml SYRG IV PRN (13:30)
[2023-09-29] MEDS ORDERED: LABETALOL HCL 5 MG/ML 4ML SYRINGE IV PRN (13:30)
[2023-09-29] MEDS: LABETALOL HCL 5 MG/ML 4ML SYRINGE IV ONE (13:37)
[2023-09-29 15:07] LABS: Anti-Centromere B Antibody <0.2 AI (0.0-0.9); Anti-Jo-1 Antibody <0.2 AI (0.0-0.9); Anti-Nuclear Antibody Direct Negative (Negative); Anti-dsDNA Antibody <1 IU/mL (0-9); Antichromatin Antibody <0.2 AI (0.0-0.9); Antiscleroderma-70 Antibody <0.2 AI (0.0-0.9); Haptoglobin 232 mg/dL (33-346); RNP Antibody <0.2 AI (0.0-0.9); Sjogren's Anti-SS-A Antibody <0.2 AI (0.0-0.9); Sjogren's Anti-SS-B Antibody <0.2 AI (0.0-0.9); Smith Antibody <0.2 AI (0.0-0.9)
[2023-09-29] MEDS: MORPHINE SULFATE INJ 2 MG/ml SYRG IV ONE (15:17)
[2023-09-29] MEDS ORDERED: hydrOXYzine 25 MG TAB or CAP PO PRN (16:30)
[2023-09-29] MEDS: OXYCODONE W/ ACETAMINOPHEN 5/325MG TABLET PO PRN (16:57)
[2023-09-29] MEDS: FINASTERIDE 5 MG TAB PO ONE (16:57)
[2023-09-29] MEDS: medroxyPROGESTERone ACETATE 5 MG TAB PO ONE (17:12)
[2023-09-29] MEDS: LISINOPRIL 20 MG TAB PO ONE (17:13)
[2023-09-29] MEDS: TPN PER PHARMACY IV NR (20:32)
[2023-09-29] MEDS: METHOCARBAMOL 500 MG TAB PO SCH (21:50)
[2023-09-29] MEDS: GABAPENTIN 100 MG CAP PO SCH (21:50)
[2023-09-29] MEDS: METOPROLOL TARTRATE 25 MG TAB PO SCH (21:50)
[2023-09-29] MEDS: POLYETHYLENE GLYCOL 17 GM PWDR PO ONE (22:00)
[2023-09-30] VITALS (125 sets, daily range): BP systolic 45–244; BP diastolic 13–164; PULSE 47–126; RESP 16–110; TEMP 98.4–101.8; O2SAT 89–100
[2023-09-30 04:15] LABS: Red Cell Distribution Width 14.9 % (11.8-14.3)
[2023-09-30] MEDS: ACETAMINOPHEN 325 MG TAB PO PRN (04:19)
[2023-09-30 04:21] LABS: Hematocrit 42.5 % (36.0-46.0); Hemoglobin 14.1 g/dL (12.2-16.2); Mean Corpuscular Hemoglobin 30.4 pg (28.0-32.0); Mean Corpuscular Hgb Conc. 33.1 g/dL (32.0-36.0); Mean Corpuscular Volume 91.9 fL (80.0-100.0); Red Blood Cells 4.63 10^6/uL (4.0-5.20)
[2023-09-30 04:26] LABS: Alanine Aminotransferase 189 U/L (7-40); Albumin 3.3 g/dL (3.2-4.8); Alkaline Phosphatase 507 U/L (46-116); Anion Gap 9 (5-15); Aspartate Aminotransferase 93 U/L (13-40); BUN/Creatinine Ratio 32.8 (10.0-20.0); Blood Urea Nitrogen 19 mg/dL (9-23); Calcium 9.2 mg/dL (8.7-10.4); Carbon Dioxide 25 mmol/L (20-30); Chloride 105 mmol/L (98-107); Glucose 128 mg/dL (74-106); Potassium 3.5 mmol/L (3.5-5.1); Sodium 139 mmol/L (136-145)
[2023-09-30 04:28] LABS: Total Protein 7.5 g/dL (5.7-8.2)
[2023-09-30 04:39] LABS: White Blood Cell 31.1 10^3/uL (4.4-10.8)
[2023-09-30 04:41] LABS: Band Neutrophils % (manual) 0; Basophils % (manual) 0 (0.0-2.0); Blast Cells 0; Eosinophils % (manual) 0 (0-7); Metamyelocytes % 0; Myelocytes % 0; Promyelocytes % 0; Reactive Lymphocytes 0
[2023-09-30 05:11] LABS: Lymphocytes % (manual) 4 (10.0-50.0); Monocytes % (manual) 3 (0-12)
[2023-09-30 05:12] LABS: Large Platelets FEW; Platelet Estimate Increased
[2023-09-30 05:58] LABS: Base Excess 3.7 mmol/L (-2.0-2.0)
[2023-09-30] MEDS: IBUPROFEN 800 MG TAB PO ONE ×2 (07:00→07:26)
[2023-09-30] MEDS: levoFLOXacin 500MG 100 ML IV SCH (07:25)
[2023-09-30] MEDS: SOD CHL 0.45% 500 ML IV ONE (07:26)
[2023-09-30] MEDS: NOREPINEPHRINE 8 MG/250ML KIT 250 ML IV ONE (08:10)
[2023-09-30] MEDS: NOREPINEPHRINE 8 MG/250ML KIT 250 ML IV SCH (08:10)
[2023-09-30] MEDS ORDERED: metroNIDAZOLE 500MG/100ML 100 ML IV ONE (08:45)
[2023-09-30] MEDS ORDERED: metroNIDAZOLE 500 MG TAB PO SCH (09:26)
[2023-09-30] MEDS ORDERED: VANCOMYCIN PER PHARMACY 0 MG IV SCH (09:30)
[2023-09-30] MEDS: metroNIDAZOLE 500 MG TAB PO SCH (09:40)
[2023-09-30] MEDS: VANCOMYCIN 1GM/200ML 200 ML IV ONE (09:48)
[2023-09-30] MEDS: FINASTERIDE 5 MG TAB PO SCH (10:27)
[2023-09-30] MEDS: LISINOPRIL 20 MG TAB PO SCH (10:46)
[2023-09-30] MEDS: ETOMIDATE (2MG/ML) 20ML VIAL IV ONE ×2 (11:01→11:28)
[2023-09-30] MEDS: ROCURONIUM 10MG/ML 10ML VIAL IV ONE ×2 (11:01→11:28)
[2023-09-30] MEDS: PROPOFOL 100 ML IV ONE (11:02)
[2023-09-30] MEDS: fentaNYL Drip 2500mCg/250mlNS 250 ML IV ONE (11:02)
[2023-09-30] MEDS: medroxyPROGESTERone ACETATE 5 MG TAB PO SCH (11:07)
[2023-09-30] MEDS: PROPOFOL 100 ML IV SCH (11:15)
[2023-09-30] MEDS: DOPamine 1600MCG/ML D5W 250 ML IV ONE (11:46)
[2023-09-30 13:06] LABS: Cytoplasmic (C-ANCA) <1:20 titer (Neg:<1:20); Perinuclear (P-ANCA) <1:20 titer (Neg:<1:20)
[2023-09-30] MEDS ORDERED: metroNIDAZOLE 500MG/100ML 100 ML IV SCH (14:00)
[2023-09-30 15:13] LABS: Base Excess -3.6 mmol/L (-2.0-2.0)
[2023-09-30 15:39] LABS: Hemoglobin 13.3 g/dL (12.2-16.2)
[2023-09-30 15:40] LABS: Hematocrit 41.2 % (36.0-46.0); Mean Corpuscular Hemoglobin 30.4 pg (28.0-32.0); Mean Corpuscular Hgb Conc. 32.3 g/dL (32.0-36.0); Mean Corpuscular Volume 94.1 fL (80.0-100.0); Red Blood Cells 4.37 10^6/uL (4.0-5.20); Red Cell Distribution Width 15.1 % (11.8-14.3)
[2023-09-30 15:59] LABS: Alanine Aminotransferase 183 U/L (7-40); Albumin 2.8 g/dL (3.2-4.8); Alkaline Phosphatase 459 U/L (46-116); Anion Gap 11 (5-15); Aspartate Aminotransferase 96 U/L (13-40); BUN/Creatinine Ratio 37.6 (10.0-20.0); Bilirubin, Total 0.9 mg/dL (0.2-1.0); Blood Urea Nitrogen 38 mg/dL (9-23); Calcium 8.7 mg/dL (8.5-10.1); Carbon Dioxide 23 mmol/L (20-30); Chloride 101 mmol/L (98-107); Glucose 322 mg/dL (74-106); Potassium 3.9 mmol/L (3.5-5.1); Sodium 135 mmol/L (136-145); Total Protein 6.1 g/dL (5.7-8.2)
[2023-09-30 16:00] LABS: White Blood Cell 36.1 10^3/uL (4.4-10.8)
[2023-09-30 16:01] LABS: Basophils % (manual) 0 (0.0-2.0); Blast Cells 0; Eosinophils % (manual) 0 (0-7); Metamyelocytes % 0; Myelocytes % 0; Promyelocytes % 0; Reactive Lymphocytes 0
[2023-09-30 16:25] LABS: INR 1.12 (0.9-1.15); Partial Thromboplastin Time 29.2 SEC (24.5-34.5); Prothrombin Time 11.8 sec (9.3-11.8)
[2023-09-30 16:58] LABS: Band Neutrophils % (manual) 4; Lymphocytes % (manual) 5 (10.0-50.0); Monocytes % (manual) 4 (0-12)
[2023-09-30 16:59] LABS: Large Platelets FEW; Platelet Estimate Increased
[2023-09-30 19:06] LABS: Antimyeloperoxidase (MPO) Ab <0.2 units (0.0-0.9); Antiproteinase 3 (PR-3) Ab <0.2 units (0.0-0.9)
[2023-09-30 20:32] LABS: Urine Amorphous Crystal FEW /hpf (None Seen); Urine Bacteria FEW /hpf (None Seen); Urine Blood 3+ /uL (Negative); Urine Clarity Turbid (Clear); Urine Color Yellow (Yellow); Urine Mucus FEW (None Seen); Urine Protein, UAD TRACE (Negative); Urine Specific Gravity 1.023 (1.001-1.035); Urine Urobilinogen Normal (Negative); Urine WBC 9 /hpf (0 - 5)
[2023-09-30] MEDS: VANCOMYCIN 1GM/200ML 200 ML IV SCH (21:23)
[2023-09-30] MEDS: TPN PER PHARMACY IV NR (21:40)
[2023-10-01] VITALS (106 sets, daily range): BP systolic 75–188; BP diastolic 40–104; PULSE 86–112; RESP 10–40; TEMP 97.9–100.6; O2SAT 92–100
[2023-10-01 04:24] LABS: Basophils # (auto) 0.2 10 ^3/uL (0-0.2); Lymphocytes # (auto) 2.5 10 ^3/uL (0.4-5.4); Monocytes # (auto) 1.9 10 ^3/uL (0-1.3); Monocytes % (auto) 7.6 % (0.0-12.0)
[2023-10-01 04:27] LABS: Basophils % (auto) 0.8 % (0.0-2.0); Eosinophils # (auto) 0.1 10 ^3/uL (0-0.8); Eosinophils % (auto) 0.4 % (0.0-7.0); Hematocrit 39.7 % (36.0-46.0); Mean Corpuscular Hemoglobin 30.6 pg (28.0-32.0); Mean Corpuscular Hgb Conc. 32.8 g/dL (32.0-36.0); Mean Corpuscular Volume 93.3 fL (80.0-100.0); Neutrophils % (auto) 81.2 % (37.0-80.0); Red Blood Cells 4.25 10^6/uL (4.0-5.20); Red Cell Distribution Width 15.2 % (11.8-14.3); White Blood Cell 24.6 10^3/uL (4.4-10.8)
[2023-10-01 04:40] LABS: Alanine Aminotransferase 180 U/L (7-40); Albumin 3.1 g/dL (3.2-4.8); Alkaline Phosphatase 373 U/L (46-116); Anion Gap 9 (5-15); Aspartate Aminotransferase 90 U/L (13-40); BUN/Creatinine Ratio 42.2 (10.0-20.0); Bilirubin, Total 0.7 mg/dL (0.2-1.0); Blood Urea Nitrogen 38 mg/dL (9-23); Calcium 8.7 mg/dL (8.7-10.4); Carbon Dioxide 23 mmol/L (20-30); Chloride 105 mmol/L (98-107); Glucose 188 mg/dL (74-106); Magnesium 2.1 mg/dL (1.6-2.6); Phosphorus 6.4 mg/dL (2.4-5.1); Potassium 3.6 mmol/L (3.5-5.1); Sodium 137 mmol/L (136-145)
[2023-10-01 07:46] LABS: Base Excess 0.8 mmol/L (-2.0-2.0)
[2023-10-01] MEDS: LIDOCAINE 1% (LOCAL ANESTH.) PF 5ml SDV ID ONE (17:45)
[2023-10-01] MEDS: TPN PER PHARMACY IV NR (20:00)
[2023-10-01] MEDS: VANCOMYCIN 1GM/200ML 200 ML IV SCH (23:44)
[2023-10-02] VITALS (107 sets, daily range): BP systolic 69–161; BP diastolic 43–94; PULSE 77–115; RESP 10–35; TEMP 97.9–98.7; O2SAT 96–100
[2023-10-02 04:29] LABS: Alanine Aminotransferase 127 U/L (7-40); Alkaline Phosphatase 276 U/L (46-116); Anion Gap 7 (5-15); BUN/Creatinine Ratio 45.3 (10.0-20.0); Blood Urea Nitrogen 29 mg/dL (9-23); Calcium 8.7 mg/dL (8.7-10.4); Carbon Dioxide 29 mmol/L (20-30); Chloride 104 mmol/L (98-107); Glucose 130 mg/dL (74-106); Potassium 3.9 mmol/L (3.5-5.1); Sodium 140 mmol/L (136-145)
[2023-10-02 04:30] LABS: Aspartate Aminotransferase 73 U/L (13-40)
[2023-10-02 04:31] LABS: Bilirubin, Total 0.7 mg/dL (0.2-1.0); Phosphorus 3.1 mg/dL (2.4-5.1); Total Protein 6.4 g/dL (5.7-8.2)
[2023-10-02 05:16] LABS: Basophils # (auto) 0.1 10 ^3/uL (0-0.2); Basophils % (auto) 0.4 % (0.0-2.0); Eosinophils # (auto) 0 10 ^3/uL (0-0.8); Eosinophils % (auto) 0.1 % (0.0-7.0); Hematocrit 33.6 % (36.0-46.0); Lymphocytes # (auto) 1.5 10 ^3/uL (0.4-5.4); Lymphocytes % (auto) 6.9 % (10.0-50.0); Mean Corpuscular Hemoglobin 30.8 pg (28.0-32.0); Mean Corpuscular Hgb Conc. 32.8 g/dL (32.0-36.0); Mean Corpuscular Volume 93.8 fL (80.0-100.0); Monocytes # (auto) 1.4 10 ^3/uL (0-1.3); Monocytes % (auto) 6.8 % (0.0-12.0); Neutrophils # (auto) 18.1 10 ^3/uL (1.6-8.6); Neutrophils % (auto) 85.8 % (37.0-80.0); Red Blood Cells 3.58 10^6/uL (4.0-5.20); White Blood Cell 21.1 10^3/uL (4.4-10.8)
[2023-10-02 08:24] LABS: Base Excess 3.8 mmol/L (-2.0-2.0)
[2023-10-02] MEDS: TPN PER PHARMACY IV NR (20:14)
[2023-10-03] VITALS (109 sets, daily range): BP systolic 73–164; BP diastolic 47–93; PULSE 75–92; RESP 20–37; TEMP 98.1–98.6; O2SAT 97–100
[2023-10-03 04:17] LABS: Basophils # (auto) 0.1 10 ^3/uL (0-0.2); Basophils % (auto) 0.3 % (0.0-2.0); Eosinophils # (auto) 0 10 ^3/uL (0-0.8); Eosinophils % (auto) 0.1 % (0.0-7.0); Hematocrit 32.6 % (36.0-46.0); Hemoglobin 10.4 g/dL (12.2-16.2); Lymphocytes # (auto) 1.6 10 ^3/uL (0.4-5.4); Lymphocytes % (auto) 8.3 % (10.0-50.0); Mean Corpuscular Hemoglobin 30.4 pg (28.0-32.0); Mean Corpuscular Volume 94.7 fL (80.0-100.0); Monocytes # (auto) 1.3 10 ^3/uL (0-1.3); Monocytes % (auto) 6.8 % (0.0-12.0); Neutrophils # (auto) 15.9 10 ^3/uL (1.6-8.6); Neutrophils % (auto) 84.5 % (37.0-80.0); Red Blood Cells 3.44 10^6/uL (4.0-5.20); Red Cell Distribution Width 15.2 % (11.8-14.3); White Blood Cell 18.8 10^3/uL (4.4-10.8)
[2023-10-03 04:40] LABS: Alanine Aminotransferase 97 U/L (7-40); Albumin 2.9 g/dL (3.2-4.8); Alkaline Phosphatase 228 U/L (46-116); Calcium 8.7 mg/dL (8.7-10.4); Carbon Dioxide 30 mmol/L (20-30); Chloride 104 mmol/L (98-107); Glucose 115 mg/dL (74-106); Potassium 3.3 mmol/L (3.5-5.1)
[2023-10-03 04:41] LABS: Anion Gap 8 (5-15); Aspartate Aminotransferase 66 U/L (13-40); Bilirubin, Total 0.7 mg/dL (0.2-1.0); Blood Urea Nitrogen 26 mg/dL (9-23); Phosphorus 2.8 mg/dL (2.4-5.1); Sodium 142 mmol/L (136-145); Total Protein 6.2 g/dL (5.7-8.2)
[2023-10-03 08:40] LABS: Base Excess 4.3 mmol/L (-2.0-2.0)
[2023-10-03] MEDS: FUROSEMIDE 40 MG/4 ML VIAL IV SCH (10:55)
[2023-10-03] MEDS: POTASSIUM CHL 20MEQ/100ML 100 ML IV SCH (13:12)
[2023-10-03] MEDS ORDERED: LORazepam 2MG/ML-1ML VIAL IV PRN (18:45)
[2023-10-03] MEDS ORDERED: ARTIFICIAL TEARS 15ml EACHEYE PRN (19:45)
[2023-10-03] MEDS: TPN PER PHARMACY IV NR (19:45)
[2023-10-04] VITALS (103 sets, daily range): BP systolic 103–186; BP diastolic 52–96; PULSE 75–95; RESP 18–31; TEMP 98.1–99; O2SAT 98–100
[2023-10-04 03:46] LABS: Basophils # (auto) 0 10 ^3/uL (0-0.2); Basophils % (auto) 0.2 % (0.0-2.0); Eosinophils # (auto) 0.1 10 ^3/uL (0-0.8); Eosinophils % (auto) 0.3 % (0.0-7.0); Hematocrit 32.5 % (36.0-46.0); Hemoglobin 10.7 g/dL (12.2-16.2); Lymphocytes # (auto) 1.1 10 ^3/uL (0.4-5.4); Lymphocytes % (auto) 5.9 % (10.0-50.0); Mean Corpuscular Hemoglobin 31.4 pg (28.0-32.0); Mean Corpuscular Volume 95.1 fL (80.0-100.0); Monocytes # (auto) 1.4 10 ^3/uL (0-1.3); Monocytes % (auto) 7.4 % (0.0-12.0); Neutrophils # (auto) 16.8 10 ^3/uL (1.6-8.6); Neutrophils % (auto) 86.2 % (37.0-80.0); Red Blood Cells 3.42 10^6/uL (4.0-5.20); Red Cell Distribution Width 15.2 % (11.8-14.3); White Blood Cell 19.5 10^3/uL (4.4-10.8)
[2023-10-04 04:01] LABS: Alanine Aminotransferase 80 U/L (7-40); Alkaline Phosphatase 221 U/L (46-116); Anion Gap 9 (5-15); Blood Urea Nitrogen 22 mg/dL (9-23); Calcium 8.7 mg/dL (8.7-10.4); Carbon Dioxide 30 mmol/L (20-30); Chloride 104 mmol/L (98-107); Glucose 139 mg/dL (74-106); Magnesium 1.8 mg/dL (1.6-2.6); Potassium 3.3 mmol/L (3.5-5.1); Sodium 143 mmol/L (136-145)
[2023-10-04 04:02] LABS: Aspartate Aminotransferase 54 U/L (13-40)
[2023-10-04 04:03] LABS: Bilirubin, Total 0.7 mg/dL (0.2-1.0); Total Protein 6.3 g/dL (5.7-8.2)
[2023-10-04] MEDS: POTASSIUM CHL 20MEQ/100ML 100 ML IV ONE ×2 (05:32→13:36)
[2023-10-04] MEDS: TPN PER PHARMACY IV NR (19:33)
[2023-10-05] VITALS (109 sets, daily range): BP systolic 86–195; BP diastolic 47–102; PULSE 72–142; RESP 8–48; TEMP 98.2–100; O2SAT 92–100
[2023-10-05 04:53] LABS: Alanine Aminotransferase 60 U/L (7-40); Alkaline Phosphatase 204 U/L (46-116); Anion Gap 6 (5-15); BUN/Creatinine Ratio 43.6 (10.0-20.0); Bilirubin, Total 0.6 mg/dL (0.2-1.0); Blood Urea Nitrogen 17 mg/dL (9-23); Calcium 8.8 mg/dL (8.5-10.1); Carbon Dioxide 30 mmol/L (20-30); Chloride 105 mmol/L (98-107); Glucose 107 mg/dL (74-106); Phosphorus 3.4 mg/dL (2.4-5.1); Potassium 3.2 mmol/L (3.5-5.1); Sodium 141 mmol/L (136-145); Total Protein 6.2 g/dL (5.7-8.2); Triglycerides 77 mg/dL (< 150)
[2023-10-05 05:04] LABS: Aspartate Aminotransferase 44 U/L (13-40)
[2023-10-05 08:24] LABS: Base Excess 4.4 mmol/L (-2.0-2.0)
[2023-10-05] MEDS: POTASSIUM CHL 20MEQ/100ML 100 ML IV ONE ×2 (09:39→13:33)
[2023-10-05] MEDS ORDERED: ENOXAPARIN SOD 100 MG/1 ML SYRINGE SC SCH (10:00)
[2023-10-05 11:35] LABS: Base Excess 4.7 mmol/L (-2.0-2.0)
[2023-10-05] MEDS: FLUCONAZOLE 200MG/100ML 100 ML IV ONE (16:55)
[2023-10-05 18:21] LABS: Basophils # (auto) 0.1 10 ^3/uL (0-0.2); Basophils % (auto) 0.4 % (0.0-2.0); Eosinophils # (auto) 0 10 ^3/uL (0-0.8); Eosinophils % (auto) 0.1 % (0.0-7.0); Hematocrit 30.4 % (36.0-46.0); Hemoglobin 9.7 g/dL (12.2-16.2); Lymphocytes # (auto) 1.5 10 ^3/uL (0.4-5.4); Lymphocytes % (auto) 7.8 % (10.0-50.0); Mean Corpuscular Hemoglobin 31.4 pg (28.0-32.0); Mean Corpuscular Volume 97.9 fL (80.0-100.0); Monocytes # (auto) 1.6 10 ^3/uL (0-1.3); Monocytes % (auto) 8.6 % (0.0-12.0); Neutrophils # (auto) 15.8 10 ^3/uL (1.6-8.6); Neutrophils % (auto) 83.1 % (37.0-80.0); Red Blood Cells 3.11 10^6/uL (4.0-5.20); Red Cell Distribution Width 15.8 % (11.8-14.3); White Blood Cell 19.1 10^3/uL (4.4-10.8)
[2023-10-05] MEDS: TPN PER PHARMACY IV NR (20:19)
[2023-10-06] VITALS (110 sets, daily range): BP systolic 76–198; BP diastolic 42–99; PULSE 68–108; RESP 13–33; TEMP 98.1–98.7; O2SAT 93–100
[2023-10-06 04:23] LABS: Basophils # (auto) 0 10 ^3/uL (0-0.2); Basophils % (auto) 0.3 % (0.0-2.0); Eosinophils # (auto) 0.1 10 ^3/uL (0-0.8); Eosinophils % (auto) 0.6 % (0.0-7.0); Hematocrit 31.2 % (36.0-46.0); Hemoglobin 10.2 g/dL (12.2-16.2); Lymphocytes # (auto) 1.5 10 ^3/uL (0.4-5.4); Lymphocytes % (auto) 9.8 % (10.0-50.0); Mean Corpuscular Hemoglobin 31.3 pg (28.0-32.0); Mean Corpuscular Hgb Conc. 32.8 g/dL (32.0-36.0); Mean Corpuscular Volume 95.2 fL (80.0-100.0); Monocytes # (auto) 1.2 10 ^3/uL (0-1.3); Monocytes % (auto) 7.6 % (0.0-12.0); Neutrophils # (auto) 12.7 10 ^3/uL (1.6-8.6); Neutrophils % (auto) 81.7 % (37.0-80.0); Red Blood Cells 3.27 10^6/uL (4.0-5.20); White Blood Cell 15.5 10^3/uL (4.4-10.8)
[2023-10-06 04:41] LABS: Alanine Aminotransferase 51 U/L (7-40); Albumin 2.9 g/dL (3.2-4.8); Alkaline Phosphatase 189 U/L (46-116); Anion Gap 9 (5-15); Aspartate Aminotransferase 39 U/L (13-40); BUN/Creatinine Ratio 41.7 (10.0-20.0); Bilirubin, Total 0.7 mg/dL (0.2-1.0); Blood Urea Nitrogen 20 mg/dL (9-23); Calcium 8.8 mg/dL (8.7-10.4); Carbon Dioxide 26 mmol/L (20-30); Chloride 106 mmol/L (98-107); Glucose 135 mg/dL (74-106); Magnesium 1.9 mg/dL (1.6-2.6); Phosphorus 4.1 mg/dL (2.4-5.1); Potassium 3.2 mmol/L (3.5-5.1); Sodium 141 mmol/L (136-145); Total Protein 6.1 g/dL (5.7-8.2)
[2023-10-06 07:32] LABS: Base Excess 1.4 mmol/L (-2.0-2.0)
[2023-10-06] MEDS: POTASSIUM CHL 20MEQ/100ML 100 ML IV SCH (09:47)
[2023-10-06] MEDS: FLUCONAZOLE 200MG/100ML 100 ML IV SCH (09:47)
[2023-10-06] MEDS ORDERED: TPN PER PHARMACY IV NR (20:00)
[2023-10-07] VITALS (109 sets, daily range): BP systolic 87–187; BP diastolic 48–97; PULSE 70–133; RESP 10–40; TEMP 98–100.4; O2SAT 85–100
[2023-10-07 05:00] LABS: Alanine Aminotransferase 50 U/L (7-40); Albumin 2.9 g/dL (3.2-4.8); Alkaline Phosphatase 194 U/L (46-116); Anion Gap 9 (5-15); Aspartate Aminotransferase 43 U/L (13-40); BUN/Creatinine Ratio 41.8 (10.0-20.0); Bilirubin, Total 0.6 mg/dL (0.2-1.0); Blood Urea Nitrogen 23 mg/dL (9-23); Calcium 8.9 mg/dL (8.7-10.4); Carbon Dioxide 26 mmol/L (20-30); Chloride 108 mmol/L (98-107); Glucose 102 mg/dL (74-106); Magnesium 1.7 mg/dL (1.6-2.6); Phosphorus 4.1 mg/dL (2.4-5.1); Potassium 3.3 mmol/L (3.5-5.1); Sodium 143 mmol/L (136-145); Total Protein 6.1 g/dL (5.7-8.2)
[2023-10-07 06:29] LABS: Basophils # (auto) 0.1 10 ^3/uL (0-0.2); Basophils % (auto) 0.6 % (0.0-2.0); Eosinophils # (auto) 0.1 10 ^3/uL (0-0.8); Eosinophils % (auto) 0.5 % (0.0-7.0); Hemoglobin 9.9 g/dL (12.2-16.2); Lymphocytes # (auto) 1.4 10 ^3/uL (0.4-5.4); Lymphocytes % (auto) 11.1 % (10.0-50.0); Mean Corpuscular Hemoglobin 31.3 pg (28.0-32.0); Mean Corpuscular Hgb Conc. 32.9 g/dL (32.0-36.0); Mean Corpuscular Volume 95.1 fL (80.0-100.0); Monocytes # (auto) 1.1 10 ^3/uL (0-1.3); Monocytes % (auto) 8.8 % (0.0-12.0); Neutrophils # (auto) 10.1 10 ^3/uL (1.6-8.6); Red Blood Cells 3.16 10^6/uL (4.0-5.20); Red Cell Distribution Width 15.3 % (11.8-14.3); White Blood Cell 12.8 10^3/uL (4.4-10.8)
[2023-10-07] MEDS: POTASSIUM CHL 20MEQ/100ML 100 ML IV ONE ×2 (07:47→09:54)
[2023-10-07 08:40] LABS: Base Excess 1.3 mmol/L (-2.0-2.0)
[2023-10-07] MEDS: ROCURONIUM 10MG/ML 10ML VIAL IV ONE ×2 (16:14→16:15)
[2023-10-08] VITALS (104 sets, daily range): BP systolic 14–139; BP diastolic -20–77; PULSE 67–88; RESP 18–25; TEMP 97.9–98.1; O2SAT 93–99
[2023-10-08 04:02] LABS: Basophils # (auto) 0 10 ^3/uL (0-0.2); Basophils % (auto) 0.4 % (0.0-2.0); Eosinophils # (auto) 0 10 ^3/uL (0-0.8); Eosinophils % (auto) 0.2 % (0.0-7.0); Hematocrit 29.4 % (36.0-46.0); Hemoglobin 9.7 g/dL (12.2-16.2); Lymphocytes # (auto) 1.5 10 ^3/uL (0.4-5.4); Mean Corpuscular Hemoglobin 30.7 pg (28.0-32.0); Mean Corpuscular Hgb Conc. 32.9 g/dL (32.0-36.0); Mean Corpuscular Volume 93.1 fL (80.0-100.0); Monocytes # (auto) 0.9 10 ^3/uL (0-1.3); Monocytes % (auto) 7.3 % (0.0-12.0); Neutrophils # (auto) 10.1 10 ^3/uL (1.6-8.6); Neutrophils % (auto) 80.1 % (37.0-80.0); Red Blood Cells 3.16 10^6/uL (4.0-5.20); White Blood Cell 12.6 10^3/uL (4.4-10.8)
[2023-10-08 04:26] LABS: Alanine Aminotransferase 55 U/L (7-40); Alkaline Phosphatase 205 U/L (46-116); Anion Gap 7 (5-15); Aspartate Aminotransferase 47 U/L (13-40); BUN/Creatinine Ratio 36.7 (10.0-20.0); Blood Urea Nitrogen 22 mg/dL (9-23); Carbon Dioxide 26 mmol/L (20-30); Chloride 110 mmol/L (98-107); Glucose 91 mg/dL (74-106); Magnesium 1.8 mg/dL (1.6-2.6); Potassium 2.8 mmol/L (3.5-5.1); Sodium 143 mmol/L (136-145)
[2023-10-08 04:27] LABS: Bilirubin, Total 0.7 mg/dL (0.2-1.0)
[2023-10-08] MEDS: POTASSIUM CHL 20MEQ/100ML 100 ML IV SCH (06:13)
[2023-10-08 07:29] LABS: Base Excess 0.6 mmol/L (-2.0-2.0)
[2023-10-08 08:23] LABS: INR 1.16 (0.9-1.15); Partial Thromboplastin Time 25.3 SEC (24.5-34.5); Prothrombin Time 12.2 sec (9.3-11.8)
[2023-10-08] MEDS ORDERED: KETAMINE 50mg/ML 1ml syringe ONE (10:37)
[2023-10-08] MEDS ORDERED: MIDAZOLAM HCL 2MG/2ML 2ml VIAL (1mg/ml) ONE (10:37)
[2023-10-08] MEDS ORDERED: ROCURONIUM 10MG/ML 10ML VIAL IV ONE (10:40)
[2023-10-08] MEDS ORDERED: ePHEDrine SULFATE 50 MG/ML AMP ONE (10:40)
[2023-10-08] MEDS: LIDOCAINE 1% HCL (LOCAL ANESTH.) INJ 20ML MDV IJ ONE (12:29)
[2023-10-08] MEDS ORDERED: MEPERIDINE HCL (25 MG/ML) 1ML VIAL ONE (12:38)
[2023-10-08] MEDS: MAGNESIUM SULFATE 1GM/100ML 100 ML IV ONE (13:45)
[2023-10-08] MEDS: LIDOCAINE 1% HCL (LOCAL ANESTH.) INJ 20ML MDV ONE (20:00)
[2023-10-09] VITALS (112 sets, daily range): BP systolic 99–185; BP diastolic 53–91; PULSE 81–95; RESP 18–30; TEMP 97.6–99.5; O2SAT 90–100
[2023-10-09 03:49] LABS: Basophils # (auto) 0 10 ^3/uL (0-0.2); Basophils % (auto) 0.3 % (0.0-2.0); Eosinophils # (auto) 0 10 ^3/uL (0-0.8); Eosinophils % (auto) 0.2 % (0.0-7.0); Hematocrit 29.7 % (36.0-46.0); Lymphocytes % (auto) 9.6 % (10.0-50.0); Mean Corpuscular Hemoglobin 31.3 pg (28.0-32.0); Mean Corpuscular Hgb Conc. 33.6 g/dL (32.0-36.0); Mean Corpuscular Volume 93.1 fL (80.0-100.0); Monocytes % (auto) 8.9 % (0.0-12.0); Neutrophils # (auto) 8.8 10 ^3/uL (1.6-8.6); Red Blood Cells 3.19 10^6/uL (4.0-5.20); Red Cell Distribution Width 14.8 % (11.8-14.3); White Blood Cell 10.9 10^3/uL (4.4-10.8)
[2023-10-09 03:58] LABS: Alanine Aminotransferase 72 U/L (7-40); Albumin 2.9 g/dL (3.2-4.8); Alkaline Phosphatase 183 U/L (46-116); Anion Gap 14 (5-15); Aspartate Aminotransferase 64 U/L (13-40); BUN/Creatinine Ratio 32.1 (10.0-20.0); Blood Urea Nitrogen 17 mg/dL (9-23); Calcium 8.8 mg/dL (8.7-10.4); Carbon Dioxide 24 mmol/L (20-30); Chloride 109 mmol/L (98-107); Glucose 92 mg/dL (74-106); Magnesium 1.8 mg/dL (1.6-2.6); Potassium 3.1 mmol/L (3.5-5.1); Sodium 147 mmol/L (136-145)
[2023-10-09 04:09] LABS: Bilirubin, Total 0.7 mg/dL (0.2-1.0)
[2023-10-09] MEDS: POTASSIUM CHL 20MEQ/100ML 100 ML IV SCH (06:08)
[2023-10-09 08:17] LABS: Base Excess 0.2 mmol/L (-2.0-2.0)
[2023-10-09] MEDS: MAGNESIUM SULFATE 1GM/100ML 100 ML IV ONE (08:24)
[2023-10-09] MEDS: FREE WATER GT SCH (12:27)
[2023-10-10] VITALS (107 sets, daily range): BP systolic 110–171; BP diastolic 67–92; PULSE 83–104; RESP 13–28; TEMP 98–100.2; O2SAT 86–100
[2023-10-10 03:49] LABS: Basophils # (auto) 0 10 ^3/uL (0-0.2); Basophils % (auto) 0.4 % (0.0-2.0); Eosinophils # (auto) 0 10 ^3/uL (0-0.8); Eosinophils % (auto) 0.3 % (0.0-7.0); Hematocrit 31.3 % (36.0-46.0); Hemoglobin 10.5 g/dL (12.2-16.2); Lymphocytes # (auto) 1.2 10 ^3/uL (0.4-5.4); Lymphocytes % (auto) 10.2 % (10.0-50.0); Mean Corpuscular Hemoglobin 31.3 pg (28.0-32.0); Mean Corpuscular Hgb Conc. 33.7 g/dL (32.0-36.0); Mean Corpuscular Volume 92.7 fL (80.0-100.0); Monocytes # (auto) 1.1 10 ^3/uL (0-1.3); Monocytes % (auto) 9.1 % (0.0-12.0); Neutrophils # (auto) 9.5 10 ^3/uL (1.6-8.6); Red Blood Cells 3.37 10^6/uL (4.0-5.20); Red Cell Distribution Width 15.1 % (11.8-14.3); White Blood Cell 11.8 10^3/uL (4.4-10.8)
[2023-10-10 04:03] LABS: Alanine Aminotransferase 70 U/L (7-40); Albumin 3.1 g/dL (3.2-4.8); Alkaline Phosphatase 205 U/L (46-116); Anion Gap 7 (5-15); Aspartate Aminotransferase 48 U/L (13-40); BUN/Creatinine Ratio 27.9 (10.0-20.0); Bilirubin, Total 0.6 mg/dL (0.2-1.0); Blood Urea Nitrogen 17 mg/dL (9-23); Calcium 8.9 mg/dL (8.5-10.1); Carbon Dioxide 26 mmol/L (20-30); Chloride 109 mmol/L (98-107); Glucose 102 mg/dL (74-106); Magnesium 1.9 mg/dL (1.6-2.6); Potassium 3.3 mmol/L (3.5-5.1); Sodium 142 mmol/L (136-145)
[2023-10-10 04:04] LABS: Total Protein 6.4 g/dL (5.7-8.2)
[2023-10-10 07:20] LABS: Base Excess 0.4 mmol/L (-2.0-2.0)
[2023-10-10] MEDS: POTASSIUM CHL 20MEQ/100ML 100 ML IV SCH (10:45)
[2023-10-11] VITALS (107 sets, daily range): BP systolic 121–180; BP diastolic 71–104; PULSE 88–111; RESP 15–35; TEMP 97.7–99.7; O2SAT 93–98
[2023-10-11 03:55] LABS: Basophils # (auto) 0.1 10 ^3/uL (0-0.2); Basophils % (auto) 0.7 % (0.0-2.0); Eosinophils # (auto) 0.1 10 ^3/uL (0-0.8); Eosinophils % (auto) 0.4 % (0.0-7.0); Hematocrit 34.3 % (36.0-46.0); Hemoglobin 11.1 g/dL (12.2-16.2); Lymphocytes # (auto) 1.4 10 ^3/uL (0.4-5.4); Mean Corpuscular Hemoglobin 30.1 pg (28.0-32.0); Mean Corpuscular Hgb Conc. 32.3 g/dL (32.0-36.0); Mean Corpuscular Volume 93.4 fL (80.0-100.0); Monocytes # (auto) 1.2 10 ^3/uL (0-1.3); Monocytes % (auto) 9.2 % (0.0-12.0); Neutrophils # (auto) 10.8 10 ^3/uL (1.6-8.6); Neutrophils % (auto) 79.7 % (37.0-80.0); Nucleated Red Blood Cells % 0.1 %; Red Blood Cells 3.67 10^6/uL (4.0-5.20); Red Cell Distribution Width 15.2 % (11.8-14.3); White Blood Cell 13.6 10^3/uL (4.4-10.8)
[2023-10-11 04:06] LABS: Anion Gap 7 (5-15); Carbon Dioxide 27 mmol/L (20-30); Chloride 107 mmol/L (98-107); Potassium 3.7 mmol/L (3.5-5.1); Sodium 141 mmol/L (136-145)
[2023-10-11 04:08] LABS: Calcium 9.2 mg/dL (8.5-10.1)
[2023-10-11 04:12] LABS: Glucose 104 mg/dL (74-106)
[2023-10-11 04:13] LABS: BUN/Creatinine Ratio 27.1 (10.0-20.0); Blood Urea Nitrogen 16 mg/dL (9-23)
[2023-10-11 06:49] LABS: Base Excess 1.1 mmol/L (-2.0-2.0)
[2023-10-11] MEDS ORDERED: HYDROCORTISONE SOD SUCC 100 MG/2ML INJ VIAL ONE (10:20)
[2023-10-12] VITALS (105 sets, daily range): BP systolic 107–168; BP diastolic 63–103; PULSE 94–126; RESP 12–34; TEMP 97.7–99; O2SAT 91–98
[2023-10-12 03:55] LABS: Chloride 104 mmol/L (98-107); Potassium 3.7 mmol/L (3.5-5.1); Sodium 139 mmol/L (136-145)
[2023-10-12 03:56] LABS: Anion Gap 11 (5-15); Carbon Dioxide 24 mmol/L (20-30)
[2023-10-12 03:57] LABS: Calcium 9.9 mg/dL (8.7-10.4)
[2023-10-12 04:00] LABS: Basophils # (auto) 0.1 10 ^3/uL (0-0.2); Eosinophils # (auto) 0 10 ^3/uL (0-0.8); Eosinophils % (auto) 0.1 % (0.0-7.0)
[2023-10-12 04:01] LABS: BUN/Creatinine Ratio 29.2 (10.0-20.0); Glucose 117 mg/dL (74-106)
[2023-10-12 04:06] LABS: Basophils % (auto) 0.4 % (0.0-2.0); Hemoglobin 11.8 g/dL (12.2-16.2); Lymphocytes % (auto) 4.4 % (10.0-50.0); Mean Corpuscular Hemoglobin 30.1 pg (28.0-32.0); Mean Corpuscular Hgb Conc. 32.6 g/dL (32.0-36.0); Mean Corpuscular Volume 92.3 fL (80.0-100.0); Monocytes # (auto) 1.8 10 ^3/uL (0-1.3); Monocytes % (auto) 8.1 % (0.0-12.0); Neutrophils # (auto) 19.1 10 ^3/uL (1.6-8.6); Red Cell Distribution Width 15.1 % (11.8-14.3)
[2023-10-12 04:13] LABS: Blood Urea Nitrogen 26 mg/dL (9-23)
[2023-10-12 07:36] LABS: Base Excess 0.1 mmol/L (-2.0-2.0)
[2023-10-12 08:26] LABS: Albumin 3.5 g/dL (3.2-4.8); Bilirubin, Direct 0.7 mg/dL (<0.3)
[2023-10-12 08:27] LABS: Bilirubin, Total 0.9 mg/dL (0.2-1.0); Total Protein 7.2 g/dL (5.7-8.2)
[2023-10-12] MEDS ORDERED: VANCOMYCIN PER PHARMACY 0 MG IV SCH (17:30)
[2023-10-12] MEDS: Jevity 1.2 Cal/Fiber 1 Liter GT SCH (18:07)
[2023-10-12] MEDS: MEROPENEM 1GM IVPB 50 ML IV ONE (18:13)
[2023-10-12] MEDS: VANCOMYCIN 1GM/200ML 200 ML IV SCH (19:01)
[2023-10-12 19:20] LABS: Urine Bacteria None Seen /hpf (None Seen)
[2023-10-12 19:33] LABS: Urine Blood Negative /uL (Negative); Urine Clarity Turbid (Clear); Urine Color Yellow (Yellow); Urine Hyaline Cast MANY /lpf (0 - 2); Urine Mucus FEW (None Seen); Urine Protein, UAD TRACE (Negative); Urine Specific Gravity 1.023 (1.001-1.035); Urine Urobilinogen Normal (Negative); Urine WBC 8 /hpf (0 - 5); Urine pH 5.5 (5.0-9.0)
[2023-10-12] MEDS: MEROPENEM 1GM IVPB 50 ML IV SCH (22:17)
[2023-10-13] VITALS (109 sets, daily range): BP systolic 103–176; BP diastolic 60–97; PULSE 79–112; RESP 13–25; TEMP 97.2–98.4; O2SAT 92–100
[2023-10-13 04:14] LABS: Basophils # (auto) 0.1 10 ^3/uL (0-0.2); Basophils % (auto) 0.3 % (0.0-2.0); Eosinophils # (auto) 0 10 ^3/uL (0-0.8); Eosinophils % (auto) 0.1 % (0.0-7.0); Hematocrit 33.5 % (36.0-46.0); Lymphocytes # (auto) 1.5 10 ^3/uL (0.4-5.4); Lymphocytes % (auto) 8.2 % (10.0-50.0); Mean Corpuscular Hemoglobin 30.4 pg (28.0-32.0); Mean Corpuscular Hgb Conc. 32.8 g/dL (32.0-36.0); Mean Corpuscular Volume 92.7 fL (80.0-100.0); Monocytes # (auto) 1.4 10 ^3/uL (0-1.3); Monocytes % (auto) 7.9 % (0.0-12.0); Neutrophils # (auto) 14.9 10 ^3/uL (1.6-8.6); Neutrophils % (auto) 83.5 % (37.0-80.0); Nucleated Red Blood Cells % 0.1 %; Red Blood Cells 3.61 10^6/uL (4.0-5.20); Red Cell Distribution Width 15.3 % (11.8-14.3); White Blood Cell 17.9 10^3/uL (4.4-10.8)
[2023-10-13 04:25] LABS: Alanine Aminotransferase 45 U/L (7-40); Alkaline Phosphatase 186 U/L (46-116); Anion Gap 7 (5-15); BUN/Creatinine Ratio 34.2 (10.0-20.0); Blood Urea Nitrogen 25 mg/dL (9-23); Calcium 9.1 mg/dL (8.7-10.4); Carbon Dioxide 27 mmol/L (20-30); Chloride 106 mmol/L (98-107); Glucose 105 mg/dL (74-106); Potassium 2.9 mmol/L (3.5-5.1); Sodium 140 mmol/L (136-145)
[2023-10-13 04:26] LABS: Albumin 3.1 g/dL (3.2-4.8); Aspartate Aminotransferase 35 U/L (13-40); Bilirubin, Total 0.6 mg/dL (0.2-1.0); Total Protein 6.5 g/dL (5.7-8.2)
[2023-10-13 06:58] LABS: Base Excess 2.4 mmol/L (-2.0-2.0)
[2023-10-13] MEDS: POTASSIUM CHL 20MEQ/100ML 100 ML IV ONE (07:17)
[2023-10-13] MEDS: MAGNESIUM SULFATE 1GM/100ML 100 ML IV ONE (09:58)
[2023-10-13] MEDS ORDERED: LORazepam 2MG/ML-1ML VIAL IV PRN (11:00)
[2023-10-13] MEDS: POTASSIUM CHL 20MEQ/100ML 100 ML IV SCH ×2 (11:12→20:02)
[2023-10-13] MEDS: LORazepam 2MG/ML-1ML VIAL IV ONE (11:30)
[2023-10-14] VITALS (102 sets, daily range): BP systolic 92–210; BP diastolic 45–105; PULSE 60–113; RESP 12–32; TEMP 97.7–98.6; O2SAT 91–100
[2023-10-14 04:11] LABS: Basophils # (auto) 0.1 10 ^3/uL (0-0.2); Basophils % (auto) 0.3 % (0.0-2.0); Eosinophils # (auto) 0 10 ^3/uL (0-0.8); Eosinophils % (auto) 0.2 % (0.0-7.0); Hematocrit 30.3 % (36.0-46.0); Hemoglobin 10.1 g/dL (12.2-16.2); Lymphocytes # (auto) 1.1 10 ^3/uL (0.4-5.4); Lymphocytes % (auto) 6.4 % (10.0-50.0); Mean Corpuscular Hemoglobin 31.1 pg (28.0-32.0); Mean Corpuscular Hgb Conc. 33.5 g/dL (32.0-36.0); Mean Corpuscular Volume 92.8 fL (80.0-100.0); Monocytes # (auto) 1.2 10 ^3/uL (0-1.3); Monocytes % (auto) 7.2 % (0.0-12.0); Neutrophils # (auto) 14.6 10 ^3/uL (1.6-8.6); Neutrophils % (auto) 85.9 % (37.0-80.0); Red Blood Cells 3.26 10^6/uL (4.0-5.20); Red Cell Distribution Width 14.8 % (11.8-14.3)
[2023-10-14 04:24] LABS: Alanine Aminotransferase 42 U/L (7-40); Alkaline Phosphatase 195 U/L (46-116); Anion Gap 7 (5-15); Aspartate Aminotransferase 40 U/L (13-40); BUN/Creatinine Ratio 33.3 (10.0-20.0); Blood Urea Nitrogen 22 mg/dL (9-23); Calcium 8.8 mg/dL (8.5-10.1); Carbon Dioxide 26 mmol/L (20-30); Chloride 108 mmol/L (98-107); Glucose 108 mg/dL (74-106); Magnesium 1.8 mg/dL (1.6-2.6); Potassium 3.4 mmol/L (3.5-5.1); Sodium 141 mmol/L (136-145)
[2023-10-14 04:25] LABS: Bilirubin, Total 0.6 mg/dL (0.2-1.0); Total Protein 6.1 g/dL (5.7-8.2)
[2023-10-14] MEDS: POTASSIUM CHL 20MEQ/100ML 100 ML IV ONE (09:31)
[2023-10-14] MEDS: MAGNESIUM SULFATE 1GM/100ML 100 ML IV ONE (09:31)
[2023-10-14] MEDS: MIDAZOLAM HCL 5 MG/ML-1ML VIAL IV ONE (14:00)
[2023-10-14] MEDS: LORazepam 2MG/ML-1ML VIAL IV ONE (14:17)
[2023-10-14] MEDS: VANCOMYCIN 1GM/200ML 200 ML IV SCH (15:37)
[2023-10-14 16:37] LABS: INR 1.11 (0.9-1.15); Partial Thromboplastin Time 24.5 SEC (24.5-34.5); Prothrombin Time 11.7 sec (9.3-11.8)
[2023-10-15] VITALS (115 sets, daily range): BP systolic 101–176; BP diastolic 63–99; PULSE 71–100; RESP 12–21; TEMP 98.7–98.8; O2SAT 81–97
[2023-10-15 04:23] LABS: Basophils # (auto) 0.1 10 ^3/uL (0-0.2); Basophils % (auto) 0.5 % (0.0-2.0); Eosinophils # (auto) 0.1 10 ^3/uL (0-0.8); Eosinophils % (auto) 0.7 % (0.0-7.0); Hematocrit 36.3 % (36.0-46.0); Hemoglobin 11.3 g/dL (12.2-16.2); Lymphocytes # (auto) 1.5 10 ^3/uL (0.4-5.4); Lymphocytes % (auto) 9.3 % (10.0-50.0); Mean Corpuscular Hemoglobin 30.3 pg (28.0-32.0); Mean Corpuscular Hgb Conc. 31.1 g/dL (32.0-36.0); Mean Corpuscular Volume 97.5 fL (80.0-100.0); Monocytes # (auto) 1.5 10 ^3/uL (0-1.3); Monocytes % (auto) 9.3 % (0.0-12.0); Neutrophils # (auto) 13.3 10 ^3/uL (1.6-8.6); Neutrophils % (auto) 80.2 % (37.0-80.0); Nucleated Red Blood Cells % 0.1 %; Red Blood Cells 3.72 10^6/uL (4.0-5.20); Red Cell Distribution Width 15.9 % (11.8-14.3); White Blood Cell 16.6 10^3/uL (4.4-10.8)
[2023-10-15 04:30] LABS: Anion Gap 9 (5-15); Carbon Dioxide 22 mmol/L (20-30); Chloride 111 mmol/L (98-107); Potassium 3.6 mmol/L (3.5-5.1); Sodium 142 mmol/L (136-145)
[2023-10-15 04:31] LABS: Calcium 9.1 mg/dL (8.5-10.1)
[2023-10-15 04:36] LABS: Blood Urea Nitrogen 11 mg/dL (9-23); Glucose 79 mg/dL (74-106)
[2023-10-15 07:20] LABS: Base Excess -1.2 mmol/L (-2.0-2.0)
[2023-10-15 07:27] LABS: Albumin 3.2 g/dL (3.2-4.8); Bilirubin, Direct 0.6 mg/dL (<0.3); Bilirubin, Total 0.7 mg/dL (0.2-1.0); Total Protein 6.6 g/dL (5.7-8.2)
[2023-10-16] VITALS (102 sets, daily range): BP systolic 105–197; BP diastolic 55–107; PULSE 69–105; RESP 11–37; TEMP 97.7–99.1; O2SAT 89–98
[2023-10-16 04:54] LABS: Alanine Aminotransferase 45 U/L (7-40); Albumin 2.8 g/dL (3.2-4.8); Alkaline Phosphatase 188 U/L (46-116); Anion Gap 9 (5-15); Aspartate Aminotransferase 44 U/L (13-40); BUN/Creatinine Ratio 25.5 (10.0-20.0); Bilirubin, Total 0.8 mg/dL (0.2-1.0); Blood Urea Nitrogen 12 mg/dL (9-23); Calcium 8.9 mg/dL (8.7-10.4); Carbon Dioxide 23 mmol/L (20-30); Chloride 111 mmol/L (98-107); Glucose 97 mg/dL (74-106); Magnesium 1.6 mg/dL (1.6-2.6); Potassium 3.3 mmol/L (3.5-5.1); Sodium 143 mmol/L (136-145); Total Protein 6.1 g/dL (5.7-8.2)
[2023-10-16 05:02] LABS: Basophils # (auto) 0.1 10 ^3/uL (0-0.2); Basophils % (auto) 0.3 % (0.0-2.0); Eosinophils # (auto) 0.1 10 ^3/uL (0-0.8); Eosinophils % (auto) 0.4 % (0.0-7.0); Hematocrit 30.9 % (36.0-46.0); Hemoglobin 10.3 g/dL (12.2-16.2); Lymphocytes % (auto) 6.2 % (10.0-50.0); Mean Corpuscular Hemoglobin 31.2 pg (28.0-32.0); Mean Corpuscular Hgb Conc. 33.3 g/dL (32.0-36.0); Mean Corpuscular Volume 93.7 fL (80.0-100.0); Monocytes # (auto) 1.4 10 ^3/uL (0-1.3); Neutrophils # (auto) 14.3 10 ^3/uL (1.6-8.6); Neutrophils % (auto) 85.1 % (37.0-80.0); Nucleated Red Blood Cells % 0.1 %; Red Cell Distribution Width 15.4 % (11.8-14.3); White Blood Cell 16.9 10^3/uL (4.4-10.8)
[2023-10-16 05:04] LABS: INR 1.07 (0.9-1.15); Partial Thromboplastin Time 26.1 SEC (24.5-34.5); Prothrombin Time 11.3 sec (9.3-11.8)
[2023-10-16 07:16] LABS: Base Excess -1.4 mmol/L (-2.0-2.0)
[2023-10-16] MEDS: POTASSIUM CHL 20MEQ/100ML 100 ML IV ONE (07:42)
[2023-10-16] MEDS ORDERED: PROPOFOL 10 MG/ML 20 ML IV ONE ×2 (08:57→09:38)
[2023-10-16] MEDS ORDERED: fentaNYL CITRATE 100 MCG/2 ML VL ONE (09:38)
[2023-10-16] MEDS ORDERED: ONDANSETRON HCL 4 MG/2 ML VIAL ONE (09:38)
[2023-10-16] MEDS ORDERED: KETAMINE 50mg/ML 1ml syringe ONE (09:38)
[2023-10-16] MEDS ORDERED: SODIUM CHLORIDE LOCK 10 ML ONE (09:38)
[2023-10-16] MEDS ORDERED: ROCURONIUM 10MG/ML 10ML VIAL IV ONE (09:38)
[2023-10-16] MEDS ORDERED: DexAMETHasone SOD PHOS 10MG/1ML VIAL INJ ONE (09:38)
[2023-10-16] MEDS ORDERED: MEPERIDINE HCL (50 MG/ML) 1 ML VIAL ONE (09:38)
[2023-10-16] MEDS ORDERED: MIDAZOLAM HCL 2MG/2ML 2ml VIAL (1mg/ml) ONE ×2 (09:38→10:57)
[2023-10-16] MEDS ORDERED: BUPIVACAINE HCL 0.25% P/F 10 ML VIAL ONE (09:54)
[2023-10-16] MEDS: VANCOMYCIN 1GM/200ML 200 ML IV SCH (12:56)
[2023-10-16] MEDS: LABETALOL HCL 5 MG/ML ML 20ML VIAL IV PRN (16:09)
[2023-10-17] VITALS (100 sets, daily range): BP systolic 73–192; BP diastolic 42–95; PULSE 70–108; RESP 8–34; TEMP 97.7–100; O2SAT 88–99
[2023-10-17 06:01] LABS: Basophils # (auto) 0 10 ^3/uL (0-0.2); Basophils % (auto) 0.2 % (0.0-2.0); Eosinophils # (auto) 0 10 ^3/uL (0-0.8); Hematocrit 31.2 % (36.0-46.0); Lymphocytes # (auto) 0.7 10 ^3/uL (0.4-5.4); Lymphocytes % (auto) 3.1 % (10.0-50.0); Mean Corpuscular Hemoglobin 30.1 pg (28.0-32.0); Mean Corpuscular Hgb Conc. 32.2 g/dL (32.0-36.0); Mean Corpuscular Volume 93.4 fL (80.0-100.0); Monocytes % (auto) 4.5 % (0.0-12.0); Neutrophils % (auto) 92.2 % (37.0-80.0); Red Blood Cells 3.33 10^6/uL (4.0-5.20); Red Cell Distribution Width 15.5 % (11.8-14.3); White Blood Cell 22.8 10^3/uL (4.4-10.8)
[2023-10-17 06:50] LABS: Alanine Aminotransferase 46 U/L (7-40); Alkaline Phosphatase 191 U/L (46-116); Anion Gap 9 (5-15); Aspartate Aminotransferase 42 U/L (13-40); BUN/Creatinine Ratio 27.9 (10.0-20.0); Blood Urea Nitrogen 12 mg/dL (9-23); Calcium 8.9 mg/dL (8.5-10.1); Carbon Dioxide 24 mmol/L (20-30); Chloride 110 mmol/L (98-107); Glucose 82 mg/dL (74-106); Magnesium 1.7 mg/dL (1.6-2.6); Potassium 4.4 mmol/L (3.5-5.1); Sodium 143 mmol/L (136-145)
[2023-10-17 06:51] LABS: Bilirubin, Total 0.8 mg/dL (0.2-1.0); Total Protein 6.1 g/dL (5.7-8.2)
[2023-10-17 09:20] LABS: Base Excess -2.4 mmol/L (-2.0-2.0)
[2023-10-17] MEDS ORDERED: metroNIDAZOLE 500MG/100ML 100 ML IV ONE (10:45)
[2023-10-17] MEDS: levoFLOXacin 500MG 100 ML IV ONE (11:34)
[2023-10-17] MEDS: metroNIDAZOLE 500MG/100ML 100 ML IV SCH (11:36)
[2023-10-17] MEDS: MICAFUNGIN SODIUM 100 MG in SODIUM CHL 0.9% 100 ML IV ONE (14:16)
[2023-10-17] MEDS: ROCURONIUM 10MG/ML 10ML VIAL IV ONE (20:36)
[2023-10-18] VITALS (104 sets, daily range): BP systolic 80–185; BP diastolic 44–91; PULSE 63–117; RESP 8–39; TEMP 97.3–100.6; O2SAT 88–99
[2023-10-18 03:56] LABS: Basophils # (auto) 0.1 10 ^3/uL (0-0.2); Basophils % (auto) 0.4 % (0.0-2.0); Eosinophils # (auto) 0 10 ^3/uL (0-0.8); Eosinophils % (auto) 0.1 % (0.0-7.0); Hematocrit 28.7 % (36.0-46.0); Hemoglobin 9.1 g/dL (12.2-16.2); Lymphocytes # (auto) 2.1 10 ^3/uL (0.4-5.4); Lymphocytes % (auto) 12.1 % (10.0-50.0); Mean Corpuscular Hemoglobin 29.9 pg (28.0-32.0); Mean Corpuscular Hgb Conc. 31.8 g/dL (32.0-36.0); Mean Corpuscular Volume 94.2 fL (80.0-100.0); Monocytes # (auto) 1.2 10 ^3/uL (0-1.3); Monocytes % (auto) 7.1 % (0.0-12.0); Neutrophils # (auto) 13.6 10 ^3/uL (1.6-8.6); Neutrophils % (auto) 80.3 % (37.0-80.0); Nucleated Red Blood Cells % 0.2 %; Red Blood Cells 3.04 10^6/uL (4.0-5.20); Red Cell Distribution Width 15.5 % (11.8-14.3)
[2023-10-18 05:43] LABS: Alanine Aminotransferase 53 U/L (7-40); Albumin 2.5 g/dL (3.2-4.8); Alkaline Phosphatase 159 U/L (46-116); Anion Gap 8 (5-15); Aspartate Aminotransferase 54 U/L (13-40); BUN/Creatinine Ratio 27.3 (10.0-20.0); Blood Urea Nitrogen 12 mg/dL (9-23); Calcium 8.5 mg/dL (8.7-10.4); Carbon Dioxide 24 mmol/L (20-30); Chloride 112 mmol/L (98-107); Glucose 78 mg/dL (74-106); Potassium 3.2 mmol/L (3.5-5.1); Sodium 144 mmol/L (136-145)
[2023-10-18 05:44] LABS: Total Protein 5.4 g/dL (5.7-8.2)
[2023-10-18] MEDS: POTASSIUM CHL 20MEQ/100ML 100 ML IV ONE ×2 (08:23→11:45)
[2023-10-18] MEDS: MICAFUNGIN SODIUM 100 MG in SODIUM CHL 0.9% 100 ML IV SCH (10:02)
[2023-10-18] MEDS: levoFLOXacin 500MG 100 ML IV SCH (10:03)
[2023-10-18] MEDS: MORPHINE SULFATE INJ 2 MG/ml SYRG IV PRN (13:18)
[2023-10-19] VITALS (98 sets, daily range): BP systolic 107–190; BP diastolic 49–109; PULSE 81–124; RESP 13–48; TEMP 98.3–100; O2SAT 88–99
[2023-10-19 04:31] LABS: Chloride 112 mmol/L (98-107); Potassium 3.5 mmol/L (3.5-5.1); Sodium 144 mmol/L (136-145)
[2023-10-19 04:32] LABS: Anion Gap 9 (5-15); Carbon Dioxide 23 mmol/L (20-30)
[2023-10-19 04:33] LABS: Basophils # (auto) 0.1 10 ^3/uL (0-0.2); Basophils % (auto) 0.4 % (0.0-2.0); Calcium 8.2 mg/dL (8.5-10.1); Eosinophils # (auto) 0 10 ^3/uL (0-0.8); Eosinophils % (auto) 0.1 % (0.0-7.0); Hematocrit 30.2 % (36.0-46.0); Hemoglobin 9.7 g/dL (12.2-16.2); Lymphocytes # (auto) 0.8 10 ^3/uL (0.4-5.4); Lymphocytes % (auto) 3.7 % (10.0-50.0); Mean Corpuscular Hemoglobin 30.2 pg (28.0-32.0); Mean Corpuscular Hgb Conc. 32.3 g/dL (32.0-36.0); Mean Corpuscular Volume 93.5 fL (80.0-100.0); Monocytes # (auto) 0.8 10 ^3/uL (0-1.3); Monocytes % (auto) 3.5 % (0.0-12.0); Neutrophils % (auto) 92.3 % (37.0-80.0); Red Blood Cells 3.23 10^6/uL (4.0-5.20); White Blood Cell 21.7 10^3/uL (4.4-10.8)
[2023-10-19 04:37] LABS: Glucose 74 mg/dL (74-106)
[2023-10-19 04:38] LABS: BUN/Creatinine Ratio 22.2 (10.0-20.0); Blood Urea Nitrogen 8 mg/dL (9-23)
[2023-10-19] MEDS: DexmedeTOMIDine 4 ML IV ONE (07:08)
[2023-10-19] MEDS: SACUBITRIL-VALSARTAN 24mg/26mg TAB PO SCH (10:00)
[2023-10-19 13:21] LABS: Urine Bacteria FEW /hpf (None Seen); Urine Blood 3+ /uL (Negative); Urine Budding Yeast OCCASIONAL /hpf (None Seen); Urine Clarity Turbid (Clear); Urine Color Light-Orange (Yellow); Urine Mucus FEW (None Seen); Urine Protein, UAD 1+ (Negative); Urine Specific Gravity 1.029 (1.001-1.035); Urine Urobilinogen Normal (Negative); Urine WBC 7 /hpf (0 - 5); Urine pH 5.5 (5.0-9.0)
[2023-10-19] MEDS ORDERED: PROPOFOL 100 ML IV SCH (17:00)
[2023-10-19] MEDS: MEROPENEM 1GM IVPB 50 ML IV ONE (17:21)
[2023-10-19] MEDS: MEROPENEM 1GM IVPB 50 ML IV SCH (22:08)
[2023-10-19] MEDS: VANCOMYCIN 1GM/200ML 200 ML IV SCH (23:24)
[2023-10-20] VITALS (97 sets, daily range): BP systolic 99–188; BP diastolic 53–115; PULSE 64–110; RESP 12–35; TEMP 97.9–100.3; O2SAT 89–100
[2023-10-20 04:05] LABS: Basophils # (auto) 0.1 10 ^3/uL (0-0.2); Basophils % (auto) 0.4 % (0.0-2.0); Eosinophils # (auto) 0.1 10 ^3/uL (0-0.8); Eosinophils % (auto) 0.3 % (0.0-7.0); Hematocrit 29.8 % (36.0-46.0); Hemoglobin 9.7 g/dL (12.2-16.2); Lymphocytes % (auto) 5.5 % (10.0-50.0); Mean Corpuscular Hemoglobin 30.1 pg (28.0-32.0); Mean Corpuscular Hgb Conc. 32.5 g/dL (32.0-36.0); Mean Corpuscular Volume 92.7 fL (80.0-100.0); Monocytes # (auto) 0.8 10 ^3/uL (0-1.3); Monocytes % (auto) 4.6 % (0.0-12.0); Neutrophils # (auto) 15.5 10 ^3/uL (1.6-8.6); Neutrophils % (auto) 89.2 % (37.0-80.0); Nucleated Red Blood Cells % 0.1 %; Red Blood Cells 3.21 10^6/uL (4.0-5.20); Red Cell Distribution Width 15.5 % (11.8-14.3); White Blood Cell 17.4 10^3/uL (4.4-10.8)
[2023-10-20 04:19] LABS: Alanine Aminotransferase 46 U/L (7-40); Albumin 2.5 g/dL (3.2-4.8); Alkaline Phosphatase 156 U/L (46-116); Anion Gap 10 (5-15); Aspartate Aminotransferase 43 U/L (13-40); BUN/Creatinine Ratio 28.6 (10.0-20.0); Blood Urea Nitrogen 10 mg/dL (9-23); Calcium 8.3 mg/dL (8.7-10.4); Carbon Dioxide 22 mmol/L (20-30); Chloride 110 mmol/L (98-107); Glucose 131 mg/dL (74-106); Magnesium 1.5 mg/dL (1.6-2.6); Potassium 3.3 mmol/L (3.5-5.1); Sodium 142 mmol/L (136-145)
[2023-10-20 04:20] LABS: Bilirubin, Total 1.1 mg/dL (0.2-1.0); Total Protein 5.5 g/dL (5.7-8.2)
[2023-10-20] MEDS ORDERED: MIDAZOLAM HCL 2MG/2ML 2ml VIAL (1mg/ml) ONE (07:58)
[2023-10-20] MEDS ORDERED: KETAMINE 50mg/ML 1ml syringe ONE (07:58)
[2023-10-20] MEDS ORDERED: ROCURONIUM 10MG/ML 10ML VIAL IV ONE (08:18)
[2023-10-20] MEDS: POTASSIUM CHL 20MEQ/100ML 100 ML IV ONE (10:42)
[2023-10-20] MEDS: MAGNESIUM SULFATE 1GM/100ML 100 ML IV SCH (12:48)
[2023-10-20] MEDS: LORazepam 2MG/ML-1ML VIAL IV PRN (21:34)
[2023-10-21] VITALS (90 sets, daily range): BP systolic 114–167; BP diastolic 46–120; PULSE 67–100; RESP 10–29; TEMP 98.6–100.1; O2SAT 91–100
[2023-10-21 04:09] LABS: Basophils # (auto) 0.1 10 ^3/uL (0-0.2); Basophils % (auto) 1.1 % (0.0-2.0); Eosinophils # (auto) 0.2 10 ^3/uL (0-0.8); Eosinophils % (auto) 1.2 % (0.0-7.0); Hematocrit 27.2 % (36.0-46.0); Hemoglobin 8.8 g/dL (12.2-16.2); Lymphocytes # (auto) 1.4 10 ^3/uL (0.4-5.4); Lymphocytes % (auto) 10.4 % (10.0-50.0); Mean Corpuscular Hgb Conc. 32.4 g/dL (32.0-36.0); Mean Corpuscular Volume 92.5 fL (80.0-100.0); Monocytes # (auto) 0.9 10 ^3/uL (0-1.3); Monocytes % (auto) 6.6 % (0.0-12.0); Neutrophils # (auto) 10.6 10 ^3/uL (1.6-8.6); Neutrophils % (auto) 80.7 % (37.0-80.0); Nucleated Red Blood Cells % 0.1 %; Red Blood Cells 2.94 10^6/uL (4.0-5.20); Red Cell Distribution Width 15.6 % (11.8-14.3); White Blood Cell 13.1 10^3/uL (4.4-10.8)
[2023-10-21 04:30] LABS: Albumin 2.5 g/dL (3.2-4.8); Alkaline Phosphatase 140 U/L (46-116); Anion Gap 7 (5-15); Aspartate Aminotransferase 38 U/L (13-40); Bilirubin, Total 0.8 mg/dL (0.2-1.0); Blood Urea Nitrogen 9 mg/dL (9-23); Calcium 7.9 mg/dL (8.5-10.1); Carbon Dioxide 24 mmol/L (20-30); Chloride 111 mmol/L (98-107); Glucose 164 mg/dL (74-106); Magnesium 1.7 mg/dL (1.6-2.6); Potassium 3.1 mmol/L (3.5-5.1); Sodium 142 mmol/L (136-145)
[2023-10-21 04:50] LABS: Alanine Aminotransferase 39 U/L (7-40)
[2023-10-21] MEDS: POTASSIUM CHL 20MEQ/100ML 100 ML IV SCH (10:14)
[2023-10-21] MEDS: MAGNESIUM SULFATE 1GM/100ML 100 ML IV ONE (10:15)
[2023-10-21] MEDS: NYSTATIN (MOUTH-THROAT) 500,000 UNITS/5 ML SUSP MT SCH (16:42)
[2023-10-22] VITALS (66 sets, daily range): BP systolic 123–198; BP diastolic 69–102; PULSE 76–110; RESP 11–30; TEMP 97.6–98.8; O2SAT 92–100
[2023-10-22 03:59] LABS: Basophils # (auto) 0.1 10 ^3/uL (0-0.2); Basophils % (auto) 0.4 % (0.0-2.0); Eosinophils # (auto) 0.1 10 ^3/uL (0-0.8); Eosinophils % (auto) 0.5 % (0.0-7.0); Hematocrit 31.3 % (36.0-46.0); Lymphocytes # (auto) 1.6 10 ^3/uL (0.4-5.4); Lymphocytes % (auto) 7.2 % (10.0-50.0); Mean Corpuscular Hemoglobin 29.6 pg (28.0-32.0); Mean Corpuscular Hgb Conc. 31.9 g/dL (32.0-36.0); Mean Corpuscular Volume 92.6 fL (80.0-100.0); Monocytes # (auto) 1.5 10 ^3/uL (0-1.3); Monocytes % (auto) 6.9 % (0.0-12.0); Neutrophils # (auto) 18.6 10 ^3/uL (1.6-8.6); Red Blood Cells 3.38 10^6/uL (4.0-5.20); Red Cell Distribution Width 15.9 % (11.8-14.3); White Blood Cell 21.9 10^3/uL (4.4-10.8)
[2023-10-22 04:15] LABS: Anion Gap 9 (5-15); Carbon Dioxide 24 mmol/L (20-30); Chloride 111 mmol/L (98-107); Potassium 3.3 mmol/L (3.5-5.1); Sodium 144 mmol/L (136-145)
[2023-10-22 04:21] LABS: BUN/Creatinine Ratio 22.2 (10.0-20.0); Blood Urea Nitrogen 8 mg/dL (9-23); Glucose 91 mg/dL (74-106); Magnesium 1.7 mg/dL (1.6-2.6)
[2023-10-22] MEDS: POTASSIUM CHL 20MEQ/100ML 100 ML IV ONE ×2 (06:46→12:33)
[2023-10-22 08:11] LABS: Base Excess 0.3 mmol/L (-2.0-2.0)
[2023-10-22] MEDS: MAGNESIUM SULFATE 1GM/100ML 100 ML IV SCH (11:21)
[2023-10-22] MEDS ORDERED: LABETALOL HCL 5 MG/ML ML 20ML VIAL IV PRN (16:15)
[2023-10-22] MEDS ORDERED: Jevity 1.2 Cal/Fiber 1 Liter GT SCH (16:45)
[2023-10-22] MEDS: LISINOPRIL 5 MG TAB PO ONE (17:27)
[2023-10-22] MEDS: METOPROLOL TARTRATE 25 MG TAB PO SCH (21:08)
[2023-10-23] VITALS (41 sets, daily range): BP systolic 135–170; BP diastolic 61–99; PULSE 86–108; RESP 12–26; TEMP 36.6; O2SAT 91–100
[2023-10-23 03:42] LABS: Basophils # (auto) 0.1 10 ^3/uL (0-0.2); Basophils % (auto) 0.8 % (0.0-2.0); Eosinophils # (auto) 0.2 10 ^3/uL (0-0.8); Eosinophils % (auto) 1.5 % (0.0-7.0); Hematocrit 29.6 % (36.0-46.0); Hemoglobin 9.5 g/dL (12.2-16.2); Lymphocytes # (auto) 1.5 10 ^3/uL (0.4-5.4); Lymphocytes % (auto) 9.8 % (10.0-50.0); Mean Corpuscular Hemoglobin 29.4 pg (28.0-32.0); Mean Corpuscular Hgb Conc. 32.2 g/dL (32.0-36.0); Mean Corpuscular Volume 91.3 fL (80.0-100.0); Monocytes # (auto) 1.3 10 ^3/uL (0-1.3); Monocytes % (auto) 8.7 % (0.0-12.0); Neutrophils # (auto) 12.2 10 ^3/uL (1.6-8.6); Neutrophils % (auto) 79.2 % (37.0-80.0); Nucleated Red Blood Cells % 0.1 %; Red Blood Cells 3.24 10^6/uL (4.0-5.20); Red Cell Distribution Width 15.5 % (11.8-14.3); White Blood Cell 15.4 10^3/uL (4.4-10.8)
[2023-10-23 04:06] LABS: Alanine Aminotransferase 31 U/L (7-40); Albumin 2.5 g/dL (3.2-4.8); Alkaline Phosphatase 139 U/L (46-116); Anion Gap 8 (5-15); Aspartate Aminotransferase 30 U/L (13-40); BUN/Creatinine Ratio 14.7 (10.0-20.0); Bilirubin, Total 0.8 mg/dL (0.2-1.0); Blood Urea Nitrogen 5 mg/dL (9-23); Calcium 7.7 mg/dL (8.5-10.1); Carbon Dioxide 24 mmol/L (20-30); Chloride 112 mmol/L (98-107); Glucose 120 mg/dL (74-106); Magnesium 1.8 mg/dL (1.6-2.6); Potassium 3.4 mmol/L (3.5-5.1); Sodium 144 mmol/L (136-145); Total Protein 5.1 g/dL (5.7-8.2)
[2023-10-23] MEDS: POTASSIUM CHL 20MEQ/100ML 100 ML IV ONE (05:38)
[2023-10-23] MEDS: MAGNESIUM SULFATE 1GM/100ML 100 ML IV ONE (06:49)
[2023-10-23 08:20] LABS: Base Excess 0.1 mmol/L (-2.0-2.0)
[2023-10-23] MEDS: LISINOPRIL 5 MG TAB PO SCH (11:01)
[2023-10-23 15:57] LABS: COVID19 ANTIGEN SOFIA FIA NEGATIVE (NEGATIVE)
== END 2023-10-23 20:39 | DRG 5 ==
LOC: ER 19:53 → OVERFLOW 09-12 01:47 → WEST WING 09-12 05:52 → TELE-WESTW 09-12 20:30 → TELE-CENTR 09-15 13:13 → ICU WEST 09-15 17:00 → DOU IN ICU 10-23 16:11
PROVIDERS: ADMIT Internal Medicine Pulmonary Disease; ATTEND Internal Medicine Pulmonary Disease
PROC: 5A1955Z Respiratory Ventilation, Greater than 96 Consecutive Hours (ICD-10-PCS; principal; 2023-09-16)
PROC: 0BH17EZ Insertion of Endotracheal Airway into Trachea, Via Natural or Artificial Opening (ICD-10-PCS; 2023-09-16)
PROC: 04HY32Z Insertion of Monitoring Device into Lower Artery, Percutaneous Approach (ICD-10-PCS; 2023-09-16)
PROC: 5A09357 Assistance with Respiratory Ventilation, Less than 24 Consecutive Hours, Continuous Positive Airway Pressure (ICD-10-PCS; 2023-09-16)
PROC: 02HV33Z Insertion of Infusion Device into Superior Vena Cava, Percutaneous Approach (ICD-10-PCS; 2023-09-16)
PROC: B548ZZA Ultrasonography of Superior Vena Cava, Guidance (ICD-10-PCS; 2023-09-16)
PROC: 02HV33Z Insertion of Infusion Device into Superior Vena Cava, Percutaneous Approach (ICD-10-PCS; 2023-09-21)
PROC: B548ZZA Ultrasonography of Superior Vena Cava, Guidance (ICD-10-PCS; 2023-09-21)
PROC: 0F9430Z Drainage of Gallbladder with Drainage Device, Percutaneous Approach (ICD-10-PCS; 2023-09-28)
PROC: 5A12012 Performance of Cardiac Output, Single, Manual (ICD-10-PCS; 2023-09-30)
PROC: 0BH17EZ Insertion of Endotracheal Airway into Trachea, Via Natural or Artificial Opening (ICD-10-PCS; 2023-09-30)
PROC: 5A1955Z Respiratory Ventilation, Greater than 96 Consecutive Hours (ICD-10-PCS; 2023-09-30)
PROC: 04HY32Z Insertion of Monitoring Device into Lower Artery, Percutaneous Approach (ICD-10-PCS; 2023-09-30)
PROC: 02HV33Z Insertion of Infusion Device into Superior Vena Cava, Percutaneous Approach (ICD-10-PCS; 2023-10-01)
PROC: B548ZZA Ultrasonography of Superior Vena Cava, Guidance (ICD-10-PCS; 2023-10-01)
PROC: 0B110F4 Bypass Trachea to Cutaneous with Tracheostomy Device, Open Approach (ICD-10-PCS; 2023-10-08)
PROC: 0FJ44ZZ Inspection of Gallbladder, Percutaneous Endoscopic Approach (ICD-10-PCS; 2023-10-16)
DX: A41.50 Gram-negative sepsis, unspecified (principal); N17.0 Acute kidney failure with tubular necrosis; G93.6 Cerebral edema; I61.1 Nontraumatic intracerebral hemorrhage in hemisphere, cortical; J69.0 Pneumonitis due to inhalation of food and vomit; G93.41 Metabolic encephalopathy; R65.21 Severe sepsis with septic shock; J15.69 Pneumonia due to other Gram-negative bacteria; I50.21 Acute systolic (congestive) heart failure; I13.0 Hypertensive heart and chronic kidney disease with heart failure and stage 1 through stage 4 chronic kidney disease, or unspecified chronic kidney disease; J96.01 Acute respiratory failure with hypoxia; K83.1 Obstruction of bile duct; J15.9 Unspecified bacterial pneumonia; K83.8 Other specified diseases of biliary tract; E87.6 Hypokalemia; N39.0 Urinary tract infection, site not specified; N18.9 Chronic kidney disease, unspecified; J44.0 Chronic obstructive pulmonary disease with (acute) lower respiratory infection; I47.10 Supraventricular tachycardia, unspecified; G93.1 Anoxic brain damage, not elsewhere classified; D75.839 Thrombocytosis, unspecified; Z20.822 Contact with and (suspected) exposure to COVID-19; I25.10 Atherosclerotic heart disease of native coronary artery without angina pectoris; I21.A1 Myocardial infarction type 2; E83.42 Hypomagnesemia; K82.8 Other specified diseases of gallbladder; F32.A Depression, unspecified; I48.92 Unspecified atrial flutter; I37.1 Nonrheumatic pulmonary valve insufficiency; E83.39 Other disorders of phosphorus metabolism; J44.1 Chronic obstructive pulmonary disease with (acute) exacerbation; K56.7 Ileus, unspecified; I46.9 Cardiac arrest, cause unspecified; B37.0 Candidal stomatitis; F12.90 Cannabis use, unspecified, uncomplicated; I48.91 Unspecified atrial fibrillation; K66.0 Peritoneal adhesions (postprocedural) (postinfection); E11.22 Type 2 diabetes mellitus with diabetic chronic kidney disease; Z79.01 Long term (current) use of anticoagulants; Z79.82 Long term (current) use of aspirin; Z79.899 Other long term (current) drug therapy; Z99.11 Dependence on respirator [ventilator] status; Z88.0 Allergy status to penicillin; Z88.2 Allergy status to sulfonamides; Z90.49 Acquired absence of other specified parts of digestive tract; Z93.3 Colostomy status; E87.3 Alkalosis; E87.20 Acidosis, unspecified
CPT/HCPCS: 31720; 36415; 36569; 36600; 47532; 70450; 70551; 71045; 71260; 74018; 74176; 74177; 74181; 74250; 76705; 76856; 76942; 78226; 80048; 80053; 80074; 80076; 80202; 80320; 81001; 82565; 82728; 82805; 82962; 83010; 83036; 83516; 83520; 83540; 83550; 83605; 83690; 83735; 83880; 84100; 84132; 84439; 84443; 84478; 84481; 84484; 85007; 85025; 85027; 85045; 85048; 85379; 85384; 85610; 85652; 85730; 86038; 86225; 86235; 86256; 86644; 86645; 86664; 86703; 86850; 86880; 86885; 86900; 86901; 87040; 87070; 87077; 87081; 87086; 87205; 87426; 92610; 92950; 93005; 93306; 93970; 93971; 94002; 94003; 94640; 94660; 95819; 96374; A4605; C9113; G0378; J0171; J0330; J1100; J1450; J1815; J1956; J2001; J2185; J2248; J2250; J2405; J2704; J3480; J3490; J7060; J7131

== ENCOUNTER 2023-12-12 18:59 | Inpatient (IN) | payer MEDICAID ==
[~2023-12-12] VITALS: Ht 177.8 cm; Wt 66.0 kg
[2023-12-12 19:51] LABS: Basophils # (auto) 0.1 10 ^3/uL (0-0.2); Basophils % (auto) 0.6 % (0.0-2.0); Eosinophils # (auto) 0 10 ^3/uL (0-0.8); Eosinophils % (auto) 0.2 % (0.0-7.0); Hemoglobin 11.2 g/dL (12.2-16.2); Lymphocytes # (auto) 1.1 10 ^3/uL (0.4-5.4); Lymphocytes % (auto) 10.4 % (10.0-50.0); Mean Corpuscular Hemoglobin 29.3 pg (28.0-32.0); Mean Corpuscular Hgb Conc. 32.1 g/dL (32.0-36.0); Mean Corpuscular Volume 91.3 fL (80.0-100.0); Monocytes # (auto) 1.1 10 ^3/uL (0-1.3); Monocytes % (auto) 9.9 % (0.0-12.0); Neutrophils # (auto) 8.7 10 ^3/uL (1.6-8.6); Neutrophils % (auto) 78.9 % (37.0-80.0); Platelet Count (auto) 313 10^3/uL (140-450); Red Blood Cells 3.83 10^6/uL (4.0-5.20); Red Cell Distribution Width 16.9 % (11.8-14.3)
[2023-12-12 20:01] LABS: Alanine Aminotransferase 22 U/L (7-40); Albumin 3.1 g/dL (3.2-4.8); Alkaline Phosphatase 62 U/L (46-116); Anion Gap 8 (5-15); Aspartate Aminotransferase 11 U/L (13-40); BUN/Creatinine Ratio 13.9 (10.0-20.0); Blood Urea Nitrogen 10 mg/dL (9-23); Calcium 8.4 mg/dL (8.7-10.4); Carbon Dioxide 23 mmol/L (20-30); Chloride 110 mmol/L (98-107); Glucose 125 mg/dL (74-106); Lipase 32 U/L (12-53); Potassium 2.9 mmol/L (3.5-5.1); Sodium 141 mmol/L (136-145)
[2023-12-12 20:02] LABS: Bilirubin, Total 0.5 mg/dL (0.2-1.0); Total Protein 5.3 g/dL (5.7-8.2)
[2023-12-12 20:46] LABS: Urine Bacteria FEW /hpf (None Seen); Urine Blood Negative /uL (Negative); Urine Clarity Clear (Clear); Urine Color Colorless (Yellow); Urine Protein, UAD Negative (Negative); Urine Specific Gravity 1.005 (1.001-1.035); Urine Urobilinogen Normal (Negative); Urine WBC 18 /hpf (0 - 5); Urine pH 5.5 (5.0-9.0)
[2023-12-12] MEDS: SODIUM CHLORIDE 0.9% 500 ML IV ONE ×2 (20:48→21:38)
[2023-12-12 21:06] VITALS: PULSE 72; RESP 16; O2SAT 96
[2023-12-12] MEDS: POTASSIUM CHL 20 Meq TABLET PO ONE (21:29)
[2023-12-12] MEDS: cefTRIAXone 1GM/50ML D5W 50 ML IV ONE (21:43)
[2023-12-12] MEDS ORDERED: DEXTROSE (50%) 50ML SYRG IV PRN (21:45)
[2023-12-12] MEDS ORDERED: ONDANSETRON HCL 4 MG/2 ML VIAL IV PRN (21:45)
[2023-12-12] MEDS ORDERED: ALBUTEROL SULF 2.5 MG/0.5ML(0.5%) NEB SOLN NEB PRN (21:45)
[2023-12-12] MEDS: ACCU-CHEK COMFORT CURVE STRIP VI SCH (22:00)
[2023-12-12] MEDS: SODIUM CHLOR 0.9% PF (SALINE LOCK) 10ML VIAL/SYR IV SCH (22:00)
[2023-12-12] MEDS: InsuLIN REG 1unit/0.01ml Soln (100units/ml) SC SCH (22:00)
[2023-12-12] MEDS ORDERED: NITROGLYCERIN 0.4 MG SL TAB SL PRN (22:30)
[2023-12-12] MEDS ORDERED: MORPHINE SULFATE INJ 2 MG/ml SYRG IV PRN (22:30)
[2023-12-12 23:40] VITALS: PULSE 72; RESP 20; O2SAT 95
[2023-12-13] VITALS (11 sets, daily range): BP systolic 126–152; BP diastolic 52–95; PULSE 63–88; RESP 15–20; TEMP 97.7–99.3; O2SAT 94–97
[2023-12-13] MEDS: InsuLIN REG 1unit/0.01ml Soln (100units/ml) SC SCH (00:06)
[2023-12-13] MEDS: ATORVASTATIN 20 MG TAB PO SCH (00:18)
[2023-12-13 03:48] LABS: Basophils # (auto) 0 10 ^3/uL (0-0.2); Basophils % (auto) 0.5 % (0.0-2.0); Eosinophils # (auto) 0 10 ^3/uL (0-0.8); Eosinophils % (auto) 0.1 % (0.0-7.0); Hematocrit 32.3 % (36.0-46.0); Hemoglobin 10.6 g/dL (12.2-16.2); Lymphocytes # (auto) 1.4 10 ^3/uL (0.4-5.4); Lymphocytes % (auto) 13.5 % (10.0-50.0); Mean Corpuscular Hemoglobin 29.9 pg (28.0-32.0); Mean Corpuscular Hgb Conc. 32.8 g/dL (32.0-36.0); Monocytes # (auto) 1.1 10 ^3/uL (0-1.3); Monocytes % (auto) 11.1 % (0.0-12.0); Neutrophils # (auto) 7.6 10 ^3/uL (1.6-8.6); Neutrophils % (auto) 74.8 % (37.0-80.0); Platelet Count (auto) 318 10^3/uL (140-450); Red Blood Cells 3.55 10^6/uL (4.0-5.20); Red Cell Distribution Width 16.6 % (11.8-14.3); White Blood Cell 10.1 10^3/uL (4.4-10.8)
[2023-12-13 04:09] LABS: Alanine Aminotransferase 20 U/L (7-40); Alkaline Phosphatase 55 U/L (46-116); Anion Gap 5 (5-15); Aspartate Aminotransferase 12 U/L (13-40); BUN/Creatinine Ratio 11.1 (10.0-20.0); Bilirubin, Total 0.6 mg/dL (0.2-1.0); Blood Urea Nitrogen 7 mg/dL (9-23); Calcium 8.2 mg/dL (8.7-10.4); Carbon Dioxide 24 mmol/L (20-30); Chloride 112 mmol/L (98-107); Glucose 103 mg/dL (74-106); Potassium 3.4 mmol/L (3.5-5.1); Sodium 141 mmol/L (136-145); Total Protein 5.3 g/dL (5.7-8.2)
[2023-12-13] MEDS: HYDROcodone-ACET 5/325MG TAB PO PRN (05:35)
[2023-12-13] MEDS: ASPirin 81 mg TAB PO SCH (09:21)
[2023-12-13] MEDS: POTASSIUM EFFERVESENT TAB 25 MEQ PO ONE (09:21)
[2023-12-13] MEDS: levoFLOXacin 500MG 100 ML IV SCH (09:21)
[2023-12-13] MEDS: PANTOPRAZOLE 40 MG TAB PO ONE (09:22)
[2023-12-13] MEDS ORDERED: METO25TA5 PO (11:21)
[2023-12-13] MEDS ORDERED: OXYC-963 PO (11:21)
[2023-12-13] MEDS ORDERED: ESCI5TAB PO (11:21)
[2023-12-13] MEDS ORDERED: OMEP-448 PO (11:21)
[2023-12-13] MEDS ORDERED: TAMS0.4C39 PO (11:21)
[2023-12-13] MEDS ORDERED: LEVO25TA6 PO (11:25)
[2023-12-13] MEDS ORDERED: VANCOMYCIN PER PHARMACY 0 MG IV SCH (16:00)
[2023-12-13] MEDS: VANCOMYCIN 1.75GM/350ML 350 ML IV ONE (17:00)
[2023-12-13] MEDS: POLYETHYLENE GLYCOL 17 GM PWDR PO PRN (17:00)
[2023-12-13] MEDS: DOCUSATE SOD 100 MG CAP PO PRN (23:00)
[2023-12-14] VITALS (10 sets, daily range): BP systolic 130–159; BP diastolic 60–94; PULSE 78–104; RESP 16–20; TEMP 97.8–98.9; O2SAT 93–100
[2023-12-14] MEDS: hydrALAZINE HCL 20 MG/ML VL IV PRN (04:53)
[2023-12-14] MEDS: VANCOMYCIN 1GM/200ML 200 ML IV SCH ×2 (05:02→23:59)
[2023-12-14] MEDS: PANTOPRAZOLE 40 MG TAB PO SCH (05:02)
[2023-12-14 05:49] LABS: Chloride 111 mmol/L (98-107); Potassium 3.4 mmol/L (3.5-5.1); Sodium 141 mmol/L (136-145)
[2023-12-14 05:51] LABS: Anion Gap 7 (5-15); Calcium 8.5 mg/dL (8.7-10.4); Carbon Dioxide 23 mmol/L (20-30)
[2023-12-14 05:53] LABS: Basophils # (auto) 0.1 10 ^3/uL (0-0.2); Basophils % (auto) 0.7 % (0.0-2.0); Eosinophils # (auto) 0.1 10 ^3/uL (0-0.8); Eosinophils % (auto) 0.7 % (0.0-7.0); Hematocrit 34.2 % (36.0-46.0); Hemoglobin 11.4 g/dL (12.2-16.2); Lymphocytes # (auto) 1.1 10 ^3/uL (0.4-5.4); Lymphocytes % (auto) 15.9 % (10.0-50.0); Mean Corpuscular Hemoglobin 30.3 pg (28.0-32.0); Mean Corpuscular Hgb Conc. 33.3 g/dL (32.0-36.0); Monocytes # (auto) 0.8 10 ^3/uL (0-1.3); Neutrophils # (auto) 5.1 10 ^3/uL (1.6-8.6); Neutrophils % (auto) 71.7 % (37.0-80.0); Platelet Count (auto) 306 10^3/uL (140-450); Red Blood Cells 3.76 10^6/uL (4.0-5.20); Red Cell Distribution Width 16.7 % (11.8-14.3); White Blood Cell 7.1 10^3/uL (4.4-10.8)
[2023-12-14 05:56] LABS: BUN/Creatinine Ratio 8.6 (10.0-20.0); Blood Urea Nitrogen 5 mg/dL (9-23); Glucose 88 mg/dL (74-106)
[2023-12-14] MEDS ORDERED: POTASSIUM EFFERVESENT TAB 25 MEQ PO ONE (06:30)
[2023-12-14] MEDS: POTASSIUM EFFERVESENT TAB 25 MEQ PO ONE (08:58)
[2023-12-14] MEDS: cefTRIAXone 1GM/50ML D5W 50 ML IV SCH (08:58)
[2023-12-14] MEDS: ACETAMINOPHEN 325 MG TAB PO PRN (16:01)
[2023-12-14] MEDS: TAMSULOSIN HYDROCHLORIDE 0.4 MG CAP PO SCH (17:21)
[2023-12-14] MEDS: AMIODARONE HCL 200 MG TAB PO SCH (21:48)
[2023-12-15 05:00] VITALS: BP 165/98; PULSE 83; RESP 18; TEMP 98.2; O2SAT 96
[2023-12-15] MEDS: LEVOTHYROXINE SODIUM 25 MCG TAB PO SCH (05:43)
[2023-12-15 06:17] LABS: Basophils # (auto) 0.1 10 ^3/uL (0-0.2); Eosinophils # (auto) 0.1 10 ^3/uL (0-0.8); Eosinophils % (auto) 0.9 % (0.0-7.0); Hematocrit 34.2 % (36.0-46.0); Lymphocytes # (auto) 1.3 10 ^3/uL (0.4-5.4); Lymphocytes % (auto) 17.5 % (10.0-50.0); Mean Corpuscular Hemoglobin 29.7 pg (28.0-32.0); Mean Corpuscular Hgb Conc. 32.3 g/dL (32.0-36.0); Monocytes # (auto) 0.8 10 ^3/uL (0-1.3); Monocytes % (auto) 10.9 % (0.0-12.0); Neutrophils % (auto) 69.7 % (37.0-80.0); Nucleated Red Blood Cells % 0.2 %; Platelet Count (auto) 335 10^3/uL (140-450); Red Blood Cells 3.72 10^6/uL (4.0-5.20); White Blood Cell 7.2 10^3/uL (4.4-10.8)
[2023-12-15 06:24] LABS: Calcium 8.8 mg/dL (8.7-10.4); Chloride 109 mmol/L (98-107); Potassium 3.6 mmol/L (3.5-5.1); Sodium 140 mmol/L (136-145)
[2023-12-15 06:25] LABS: Anion Gap 9 (5-15); Carbon Dioxide 22 mmol/L (20-30)
[2023-12-15 06:30] LABS: Glucose 91 mg/dL (74-106)
[2023-12-15 06:31] LABS: BUN/Creatinine Ratio 8.6 (10.0-20.0); Blood Urea Nitrogen < 5 mg/dL (9-23)
[2023-12-15 08:00] VITALS: PULSE 102; RESP 18
[2023-12-15 09:00] VITALS: BP 148/85; PULSE 101; RESP 14; TEMP 98.1; O2SAT 98
[2023-12-15] MEDS: METOPROLOL SUCCINATE XL 50 MG TAB PO SCH (09:28)
[2023-12-15] MEDS: hydroCHLOROthiazide 25 MG TAB PO SCH (09:29)
[2023-12-15] MEDS: LISINOPRIL 20 MG TAB PO SCH (09:39)
[2023-12-15] MEDS ORDERED: LEVO500T91 PO (10:23)
[2023-12-15] MEDS ORDERED: MUPIROCIN 2% OINT 15gm or 22gm FOR MRSA NARES EACHNOSTRI SCH (12:00)
[2023-12-15 13:00] VITALS: BP_SYST 130; BP_SYST 137; BP_DIAS 82; BP_DIAS 87; PULSE 81; PULSE 87; RESP 14; RESP 15; TEMP 97.8; O2SAT 96; O2SAT 97
== END 2023-12-15 14:35 | disposition home or self-care (01) | DRG 720 ==
LOC: EDBD 18:59 → ER 18:59 → TELE 22:27 → TELE-CENTR 12-13 05:19
PROVIDERS: ADMIT Internal Medicine Geriatric Medicine; ATTEND Emergency Medicine
DX: A41.9 Sepsis, unspecified organism (principal); J15.69 Pneumonia due to other Gram-negative bacteria; J15.212 Pneumonia due to Methicillin resistant Staphylococcus aureus; C26.9 Malignant neoplasm of ill-defined sites within the digestive system; E83.51 Hypocalcemia; Z93.0 Tracheostomy status; E87.8 Other disorders of electrolyte and fluid balance, not elsewhere classified; D64.9 Anemia, unspecified; E11.9 Type 2 diabetes mellitus without complications; N30.00 Acute cystitis without hematuria; K29.70 Gastritis, unspecified, without bleeding; E87.6 Hypokalemia; K62.89 Other specified diseases of anus and rectum; I10 Essential (primary) hypertension; K59.00 Constipation, unspecified; I25.10 Atherosclerotic heart disease of native coronary artery without angina pectoris; Z88.0 Allergy status to penicillin; Z88.2 Allergy status to sulfonamides; Z79.899 Other long term (current) drug therapy; Z79.82 Long term (current) use of aspirin; Z90.49 Acquired absence of other specified parts of digestive tract
CPT/HCPCS: 36415; 71045; 74176; 80048; 80053; 80202; 81001; 82270; 82306; 82607; 82962; 83036; 83690; 84443; 84484; 85025; 87081; 96360; 96361; G0378; J1956

== ENCOUNTER 2024-05-12 10:28 | Emergency (ER) | payer MEDICAID ==
[~2024-05-12] VITALS: Ht 177.8 cm; Wt 77.3 kg
[~2024-05-12 10:28] MED LIST changes: +ESCI5TAB PO; +LEVO25TA6 PO; +LEVO500T91 PO; +METO25TA5 PO; +OMEP-448 PO; -OMEP20TA PO; +OXYC-963 PO; -PERCOT PO; +TAMS0.4C39 PO
--- NOTE | 2024-05-12 10:41 | ED.PDOC ---
History of Present Illness HPI Comments 54-year-old female who comes in with chief complaint of injury to the right wrist. The patient states that she was walking in the dark and tripped and fell on the right wrist the patient denies any other complaints this time. The patient was able to ambulate into the emergency department's without any diffic ulty. Chief Complaint: Upper Extremity Time Seen by MD: 10:33 Primary Care Provider: FINE Reviewed Notes: Nurses Notes, Medications, Allergies (Allergies listed above) Allergies: Coded Allergies: Penicillins (Verified Allergy, Unknown, 09/04/16) Sulfa Antibiotics (Verified Allergy, Unknown, 09/04/16) Home Meds Active Scripts Hydrocodone-Acetaminophen (Hydrocodone Bitartrate/AC 5-325 mg) 1 Tab Tab, 1 TAB PO Q8HP PRN for 5 Days, #15 TAB Prov:RONN RIVERA MD 05/12/24 Levofloxacin Hemihydrate (LEVAQUIN 500 MG) 500 Mg Tab, 500 MG PO DAILY for 7 Days, #7 TAB Prov:MODESTO TRACY 12/15/23 Amiodarone Hcl (Amiodarone Hcl) 200 Mg Tab, 1 TAB PO BID, #180 TAB 3 Refills Prov:JESSICA HARRELL MD 01/09/23 Meclizine HCl (Meclizine 25) 25 Mg Tab, 25 MG PO DAILY for 5 Days, #5 TAB Prov:SIN AVILA MD 01/01/23 Reported Medications Levothyroxine Sodium (Levothyroxine Sodium) 25 Mcg Tab, 25 MCG PO QAM, MCG 12/13/23 Metoprolol Tartrate (Metoprolol Tartrate) 25 Mg Tab, 25 MG PO BID for 30 Days, MG 12/13/23 Escitalopram Oxalate (Lexapro) 5 Mg Tab, 3 TAB PO DAILY, #30 TAB 2 Refills 12/13/23 Tamsulosin Hcl (Tamsulosin Hcl) 0.4 Mg Cap, 0.4 MG PO QPM for 30 Days, MG 12/13/23 Oxycodone W/ Acetaminophen (Oxycodone/Acetaminophen 10-300 mg) 1 Tab Tab, 1 TAB PO Q4HP PRN for PAIN SCALE 1 THRU 6, TAB 12/13/23 Omeprazole (Omeprazole Dr) 40 Mg Cap, 40 MG PO DAILY, CAP 12/13/23 Aspirin (Aspir-Low) 81 Mg Tab, 81 MG PO DAILY for 30 Days, MG 01/08/23 Albuterol Sulfate (VENTOLIN MDI) 90 Mcg Ih, 90 MCG IN PRN for BREATHING, #1 INH 01/04/23 Patients Own Medication (PATIENTS OWN MEDICATION) . PTS OWN MED-OBTAIN FROM PT AND SEND TO RX DRUG:estradiol valerate 100mg/5mls 0.5ml/10mg FREQ: q two weeks due 01/03/23 RX# EXP: DATE DISP: TECH: RPH: 01/03/23 Semaglutide (Wegovy) 0.25 Mg/0.5 Ml Inj, 0.25 MG SC QWEEKLY for WEIGHT LOSS, INJ 01/03/23 Hydrochlorothiazide (Hydrochlorothiazide) 25 Mg Tab, 25 MG PO DAILY for WATER PILL for 30 Days, MG 01/03/23 Medroxyprogesterone Acetate (Medroxyprogesterone Aceta) 2.5 Mg Tab, 2.5 MG PO HS for HORMONE, MG 01/03/23 Famotidine (Famotidine) 20 Mg Tab, 20 MG PO HS for ACID CIVIL ENGINEERING PROFESSIONAL for 30 Days, MG 01/03/23 Linaclotide Base (LINZESS) 145 Mcg Cap, 145 MCG OR DAILY for IBS, CAP 01/03/23 Metoprolol Succinate (Metoprolol Succinate Er) 50 Mg Tab, 50 MG PO DAILY for HIGH BP for 30 Days, MG 01/03/23 Lisinopril (Lisinopril) 20 Mg Tab, 20 MG PO DAILY for HIGH BP for 30 Days, MG 01/03/23 Finasteride (Finasteride) 5 Mg Tab, 5 MG PO DAILY for URINARY RETENTION for 30 Days, MG 01/03/23 Atorvastatin Calcium (Lipitor) 40 Mg Tab, 1 TAB PO QPM for HIGH CHOLESTEROL, #90 TAB 1 Refill 01/03/23 Hydroxyzine Hcl (Hydroxyzine Hcl) 25 Mg Tab, 1 TAB PO BID for ANTIHISTAMINE 01/02/23 Trazodone Hcl (Trazodone Hcl) 100 Mg Tab, 2 TAB PO for ANTIDEPRESSSANT 01/02/23 Methocarbamol (Methocarbamol) 500 Mg Tab, 2 PO BID for MUSCLE RELAXER 01/02/23 Gabapentin (Gabapentin) 600 Mg Tab, 1 TAB PO TID PRN for PAIN SCALE 1 THRU 6 01/02/23 Buspirone HCl (Buspirone Hydrochloride) 30 Mg Tab, 1 TAB PO BID for ANXIETY 01/02/23 Bupropion Hcl (Bupropion Hcl Er) 100 Mg Tab, 1 TAB PO QAM for ANTIDEPRESSANT 01/02/23 Citalopram Hydrobromide (Citalopram Hydrobromide) 40 Mg Tab, 1 TAB PO DAILY for ANTIDEPRESSIVE 01/01/23 Metoprolol Succinate (Metoprolol Succinate Er) 50 Mg Tab, 1 TAB PO DAILY for HIGH BP 01/01/23 Information Source: Patient Mode of Arrival: Ambulatory Severity: Moderate Timing: Hours Duration: Since onset Prehospital treatment: None Location: Right wrist pain with swelling and decreased range of motion Past Medical History PAST MEDICAL HISTORY: CAD, CVA, HTN, ME Surgical History: Appendectomy, Hernia Repair Surgical History (Other): Breast augmentation, penile surgery HAY SORTER History: No Pertinent HAY SORTER History Family History Family History: Family hx of heart khai Social History Smoker: Non-Smoker Alcohol: Denies ETOH Use Drugs: Marijuana Lives In: Home Constitutional: denies: chills, diaphoresis, fatigue, fever, malaise, sweats, weakness, others EENTM: denies: blurred vision, double vision, ear bleeding, ear discharge, ear drainage, ear pain, ear ringing, eye pain, eye redness, hearing loss, mouth pain, mouth swelling, nasal discharge, nose bleeding, nose congestion, nose pain, photophobia, tearing, throat pain, throat swelling, voice changes, others Respiratory: denies: cough, hemoptysis, orthopnea, SOB at rest, shortness of breath, SOB with excertion, stridor, wheezing, others Cardiovascular: denies: chest pain, dizzy spells, diaphoresis, Dyspnea on exertion, edema, irregular heart beat, left arm pain, lightheadedness, palpitations, PND, syncope, others Gastrointestinal: denies: abdomen distended, abdominal pain, blood streaked bowels, constipated, diarrhea, dysphagia, difficulty swallowing, hematemesis, melena, nausea, poor appetite, poor fluid intake, rectal bleeding, rectal pain, vomiting, others Genitourinary: denies: abnormal vagina bleeding, burning, dyspareunia, dysuria, flank pain, frequency, hematuria, incontinence, pain, , vagina disch arge, urgency, others Neurological: denies: dizziness, fainting, headache, left sided numbness, left sided weakness, numbness, paresthesia, pre-existing deficit, right sided numbness, right sided weakness, seizure, speech problems, tingling, tremors, weakness, others Musculoskeletal: reports: others (Right wrist injury); denies: back pain, gout, joint pain, joint swelling, muscle pain, muscle stiffness, neck pain Integumetry: denies: bruises, change in color, change in hair/nails, dryness, laceration, lesions, lumps, rash, wounds, others Allergic/Immunocompromised: denies: Difficulty Healing, Frequent Infections, Hives, Itching, others Hematologic/Lymphatic: denies: anemia, blood clots, easy bleeding, easy bruising, swollen glands, others Endocrine: denies: excessive hunger, excessive sweating, excessive thirst, excessive urination, flushing, intolerance to cold, intolerance to heat, unexplained weight gain, unexplained weight loss, others Psychiatric: denies: anxiety, bipolar disorder, depression, hopeless, panic disorder, schizophrenia, sleepless, suicidal, others Physical Exam General Appearance: Mild Distress HEENT: Normal ENT Inspection, Pharynx Normal, TMs Normal Neck: Full Range of Motion, Non-Tender, Normal, Normal Inspection Respiratory: Chest Non-Tender, Lungs Clear, No Accessory Muscle Use, No Respiratory Distress, Normal Breath Sounds Cardiovascular: No Edema, No JVD, No Murmur, No Gallop, Normal Peripheral Pulses, Regular Rate/Rhythm Breast Exam: Deferred Gastrointestinal: No Organomegaly, Non Tender, No Pulsatile Mass, Normal Bowel Sounds, Soft Genitalia: Deferred Pelvic: Deferred Rectal: Deferred Extremities: No calf tenderness, Normal capillary refill, No pedal edema Musculoskeletal : Location: Right Extremity Location: Wrist Apperance: Limited ROM, Tenderness: Moderate Neurologic: Alert, band scroll saw operator II-XII nml as Tested, No Motor Deficits, Normal Affect, Normal Mood, No Sensory Deficits Cerebellar Function: Normal Reflexes: Normal Skin: Dry, Normal Color, Warm Lymphatic: No Adenopathy Was a procedure done? Was a procedure done?: No Differential Dx Considerations may include: Fracture fracture, strain X-Ray, Labs, Meds, VS Vital Signs Date Time Temp Pulse Resp B/P (MAP) Pulse Ox O2 Delivery O2 Flow Rate FiO2 05/12/24 10:39 98.0 60 20 111/54 (73) 96 X-ray of the right wrist shows:IMPRESSION: Nondisplaced distal radial fracture. The patient was given Ridge here in the emergency department's The patient was placed in a sugar-tong splint and a sling We discussed the findings with the patient The patient is being referred to the primary care doctor for a referral to the orthopedic surgeon. We explained to the patient that the patient may need surgery but that would be decided by the orthopedic surgeon The patient agrees with the management The patient was given a prescription of Ridge. Images Reviewed?: Images reviewed and evaluated by me Time of 1ST Reevaluation: 10:41 Reevaluation 1ST: Unchanged Patient Education/Counseling: Diagnosis, Treatment, Prognosis, Need For Follow Up Family Education/Counseling: No Family Present Departure 1 Departure Time of Disposition: 11:08 Impression: Primary Impression: Right wrist fracture Qualified Codes: S62.101A - Fracture of unspecified carpal bone, right wrist, initial encounter for closed fracture Disposition: 01 HOME / SELF CARE / HOMELESS Condition: Fair e-Prescriptions Hydrocodone-Acetaminophen (Hydrocodone Bitartrate/AC 5-325 mg) 1 Tab Tab 1 TAB PO Q8HP PRN for 5 Days, #15 TAB Prov: RONN RIVERA MD 05/12/24 Discharged With: Self Critical Care Note Critical Care Time?: No Stability Stability form required: No Heart Score Heart Score: Heart Score Response (Comments) Value History N/A 0 EKG N/A 0 Age N/A 0 Risk Factors N/A 0 Troponin N/A 0 Total 0 RONN RIVERA MD May 12, 2024 10:41
--- NOTE | 2024-05-12 11:00 | DVH ---
INDICATION: fall TECHNIQUE: 4 radiographic views of the right wrist were obtained. COMPARISON: None FINDINGS: Nondisplaced distal radial fracture. IMPRESSION: Nondisplaced distal radial fracture.
[2024-05-12] MEDS ORDERED: HYDR-4902 PO (11:10)
[2024-05-12] MEDS: HYDROcodone-ACET 5/325MG TAB PO ONE (11:14)
[2024-05-12 11:46] VITALS: BP 110/67; PULSE 64; RESP 18; TEMP 97.8; O2SAT 96
[2024-05-20] MEDS ORDERED: LIDO1.8P EX (13:46)
[2024-05-20] MEDS ORDERED: NALO4SPR2 (13:46)
[2024-05-20] MEDS ORDERED: NALO1TAB4 PO (13:46)
[2024-05-20] MEDS ORDERED: IBUP-1455 PO (13:46)
[2024-05-20] MEDS ORDERED: BUPR10DI TOP (13:46)
[2024-05-20] MEDS ORDERED: CEL100T PO (13:46)
[2024-05-20] MEDS ORDERED: FAMO-12 PO (13:46)
[2024-05-20] MEDS ORDERED: PRED20TA2 PO (13:46)
[2024-05-20] MEDS ORDERED: ACLI400A5 IN (13:46)
[2024-05-20] MEDS ORDERED: FLUT115A IN (13:46)
[2024-05-20] MEDS ORDERED: ONDA-155 PO (13:46)
[2024-05-20] MEDS ORDERED: SUCR1TAB PO (13:46)
== END 2024-05-12 11:49 | disposition home or self-care (01) ==
LOC: ER 10:28
DX: S52.591A Other fractures of lower end of right radius, initial encounter for closed fracture (principal); I10 Essential (primary) hypertension; I25.10 Atherosclerotic heart disease of native coronary artery without angina pectoris; I25.2 Old myocardial infarction; F15.90 Other stimulant use, unspecified, uncomplicated; Z86.73 Personal history of transient ischemic attack (TIA), and cerebral infarction without residual deficits; Z90.49 Acquired absence of other specified parts of digestive tract; Z98.890 Other specified postprocedural states; Z88.0 Allergy status to penicillin; Z88.2 Allergy status to sulfonamides; Z79.82 Long term (current) use of aspirin; Z79.899 Other long term (current) drug therapy; W01.0XXA Fall on same level from slipping, tripping and stumbling without subsequent striking against object, initial encounter; Y93.01 Activity, walking, marching and hiking; Y92.89 Other specified places as the place of occurrence of the external cause; Y99.8 Other external cause status
CPT/HCPCS: 29125; 73110

== ENCOUNTER 2024-05-25 12:06 | Inpatient (IN) | payer MEDICAID ==
[2024-05-20 11:40] LABS: Basophils # (auto) 0.1 10 ^3/uL (0-0.2); Basophils % (auto) 0.9 % (0.0-2.0); Eosinophils # (auto) 0.1 10 ^3/uL (0-0.8); Eosinophils % (auto) 1.5 % (0.0-7.0); Hematocrit 38.5 % (36.0-46.0); Hemoglobin 12.7 g/dL (12.2-16.2); Lymphocytes # (auto) 1.5 10 ^3/uL (0.4-5.4); Mean Corpuscular Hemoglobin 29.8 pg (28.0-32.0); Mean Corpuscular Hgb Conc. 32.9 g/dL (32.0-36.0); Mean Corpuscular Volume 90.7 fL (80.0-100.0); Monocytes # (auto) 0.9 10 ^3/uL (0-1.3); Monocytes % (auto) 9.4 % (0.0-12.0); Neutrophils # (auto) 6.6 10 ^3/uL (1.6-8.6); Neutrophils % (auto) 72.2 % (37.0-80.0); Platelet Count (auto) 297 10^3/uL (140-450); Red Blood Cells 4.24 10^6/uL (4.0-5.20); Red Cell Distribution Width 14.5 % (11.8-14.3); White Blood Cell 9.2 10^3/uL (4.4-10.8)
[2024-05-20 12:01] LABS: INR 0.99 (0.9-1.15); Partial Thromboplastin Time 24.2 SEC (24.5-34.5); Prothrombin Time 10.5 sec (9.3-11.8)
[2024-05-20 12:38] LABS: Alanine Aminotransferase 20 U/L (7-40); Albumin 4.4 g/dL (3.2-4.8); Alkaline Phosphatase 59 U/L (46-116); Anion Gap 5 (5-15); Aspartate Aminotransferase 15 U/L (13-40); BUN/Creatinine Ratio 15.7 (10.0-20.0); Bilirubin, Total 0.3 mg/dL (0.2-1.0); Blood Urea Nitrogen 21 mg/dL (9-23); Calcium 9.5 mg/dL (8.7-10.4); Carbon Dioxide 29 mmol/L (20-31); Chloride 105 mmol/L (98-107); Glucose 79 mg/dL (74-106); Potassium 4.5 mmol/L (3.5-5.1); Sodium 139 mmol/L (136-145)
[2024-05-25] VITALS (12 sets, daily range): BP systolic 111–157; BP diastolic 52–76; PULSE 45–52; RESP 12–18; TEMP 98.1; O2SAT 96–100
[~2024-05-25] VITALS: Ht 177.8 cm; Wt 88.4 kg
[~2024-05-25 12:06] MED LIST changes: +ACLI400A5 IN; -ASPI-543 PO; -BUPR100T16 PO; +BUPR10DI TOP; -BUSP30TA21 PO; +CEL100T PO; -ESCI5TAB PO; +FLUT115A IN; -HYDR-3682 PO; -HYDR25TA4 PO; +IBUP-1455 PO; -LEVO25TA6 PO; -LEVO500T91 PO; +LIDO1.8P EX; -LINA145C OR; -LISI20TA56 PO; -MECL1TAB42 PO; -METO-289 PO; +NALO1TAB4 PO; +NALO4SPR2; +ONDA-155 PO; -POM; +PRED20TA2 PO; -SEMA0.25 SC; +SUCR1TAB PO; -TRAZ-228 PO
[2024-05-25] MEDS: HEPARIN SODIUM (PORCINE) 5000 UNITS/ML 1ML VIAL ONE (13:32)
[2024-05-25] MEDS: LIDOCAINE 2%HCL (LOCAL ANESTH.) INJ 20ML MDV ONE (13:33)
[2024-05-25] MEDS: MIDAZOLAM HCL 2MG/2ML 2ml VIAL (1mg/ml) ONE ×2 (13:33→14:37)
[2024-05-25] MEDS: VERAPAMIL 2.5MG/ML INJ 2ML VIAL IV ONE (13:33)
[2024-05-25] MEDS: fentaNYL CITRATE 100 MCG/2 ML VL ONE (13:33)
[2024-05-25] MEDS: ASPirin 325 MG TAB ONE (14:37)
[2024-05-25] MEDS: SODIUM CHL 0.9% 50 ML ONE (14:37)
[2024-05-25] MEDS: ANGIOMAX 250 MG VIAL IV ONE (14:37)
[2024-05-25] MEDS: CLOPIDOGREL BISULFATE 75 MG TAB ONE ×2 (14:38)
--- NOTE | 2024-05-25 14:42 | DVHOP2 ---
Operative Report - 2 Report Details Date: 05/25/24 Preop Diagnosis: CAD Postop Diagnosis: Significant RCA stenosis Surgeon: Hany Sneed MD Anesthesiologist: Conscious sedation Anesthesia: Mac, Local Consent: The patient was informed of the risks and benefits of the procedure. These include but are not limited to complications of anesthesia, postoperative infection, incomplete relief of symptoms, recurrence of symptoms, damage to blood vessels, nerves and tendons, deep venous thrombosis, pulmonary embolism and possible need for repeat surgery in the future. Complications: No complications Estimated Blood Loss: 5 cc Findings: RCA stenosis Indications for Surgery: Chest pain abnormal stress test Name of Procedure Performed Bilateral cine coronary angiography, left ventriculography, fractional flow reserve evaluation with cath works program. PTCA and stenting of RCA Procedure Details Procedure Details: Prior local anesthesia with 2% lidocaine to the right groin and full informed consent obtained the patient was prepped and draped in the usual fashion followed by placement of the six [place] sheath into the right femoral artery under fluoroscopic and ultrasound guidance. We then placed a six [place] Tiffanie catheter into the right and left coronary ostium and a six [place] pigtail catheter was used for ventriculography. Hemodynamics: Aortic blood pressure was 110/70, end-diastolic pressure was 15. There was no gradient across the aortic valve on pullback. Coronary anatomy: the RCA is a Large dominant vessel. There is a proximal 70% eccentric stenosis with a shelf-like plaque. The mid and distal segments are free of significant disease. The PDA and posterolateral are normal. The above-mentioned FFR evaluation program was used and we found an FFR of 0.79 indicative of severe stenosis of the RCA proximally. PDA in the posterolateral branches as noted were normal. Left main is large and normal. Left anterior descending coronary artery is normal without stenosis in its proximal mid or distal segments. The septals and diagonals are normal. The circumflex is large with two marginals free of significant disease. Ventriculography in the MOONEY projection shows an overall EF of 55-60% with normal RV function. Angioplasty was performed subsequent to the FFR evaluation. A JR4 guide was then placed with a Gab blue wire. Direct stenting with a 3-0 by 15 mm Medtronic drug-eluting stent used. This was inflated to 18 atmospheres with excellent antegrade flow without thrombus formation under dissection. Impression: Successful PTCA and stenting subsequent to FFR evaluation of the RCA. Normal EDP. Normal ejection fraction. Recommendations: Continue with dual antiplatelet therapy. Risk factor modification and continuation of medical management. Condition Good Disposition Home Date of Service: May 25, 2024 Billing Provider: HANY SNEED Sr., MD Cardiology Common Codes: [id number] INP/OBS CARE (High) Cardiology Procedure Codes: 33767 -PTCA W/STENT PLACEMENT ( bilateral cine coronary angiography. Left ventriculography. FFR evaluation. PTCA and stenting of the RCA.) HANY SNEED Sr., MD May 25, 2024 14:42
[2024-05-25] MEDS ORDERED: MORPHINE SULFATE INJ 2 MG/ml SYRG IV PRN ×2 (14:45→15:15)
[2024-05-25] MEDS ORDERED: NITROGLYCERIN 0.4 MG SL TAB SL PRN ×2 (14:45→15:15)
[2024-05-25] MEDS ORDERED: HYDROcodone-ACET 5/325MG TAB PO PRN (15:15)
[2024-05-25] MEDS ORDERED: ONDANSETRON HCL 4 MG/2 ML VIAL IV PRN (15:15)
[2024-05-25] MEDS ORDERED: ACETAMINOPHEN 325 MG TAB PO PRN (15:15)
[2024-05-25] MEDS ORDERED: IPRATROPIUM BROM 0.5 MG/2.5ML INH SOL NEB PRN (15:30)
[2024-05-25] MEDS ORDERED: ALBUTEROL SULF 2.5 MG/0.5ML(0.5%) NEB SOLN NEB PRN (15:30)
--- NOTE | 2024-05-25 15:30 | DVHHP2 ---
History of Present Illness Reason for Visit: Angio History of Present Illness Quinton Terry is a 54-year-old female (transgender) with past medical history of hypertension, hyperlipidemia, COPD, past trach, right knee replacement, breast augmentation, vaginoplasty, and right wrist fracture currently in a cast over 3 weeks ago who is here after an angio with a stent x1 to the RCA. Patient reports that she developed chest pain last night when resting in bed 5/10 pain intermittent and sharp. Patient denies any current shortness of breath, wheezing, fever, chills, lightheadedness, dizziness, abdominal pain, nausea, vomiting, and diarrhea. Patient reports that she does not use home oxygen. Cardiovascular: HTN, hyperipidemia Pulmonary: COPD Past Surgical History: Other (Right knee replacement Breast augmentation Vaginal plasty Trach in September 11, 2023 and right wrist fracture with cast 3 weeks ago) Family History: Other (Son with autism) Smoke: No ALCOHOL: none Drugs: None Lives: Roommate Domestic Violence: Neg Review of Systems Cardiovascular: Chest Pain Allergies: Coded Allergies: Penicillins (Verified Allergy, Unknown, 05/20/24) Sulfa Antibiotics (Verified Allergy, Unknown, 05/20/24) Medications Current Medications Medications Dose Ordered Sig/Jacky Route Start Time Stop Time Status Last Admin Dose Admin Nitroglycerin 0.4 mg Q5MINP PRN SL 05/25/24 14:45 UNV Morphine Sulfate 2 mg Q30M PRN IV 05/25/24 14:45 UNV Acetaminophen/ Hydrocodone Bitart 1 tab Q4HP PRN PO 05/25/24 15:15 UNV Ondansetron HCl 4 mg Q4HP PRN IV 05/25/24 15:15 UNV Acetaminophen 650 mg Q6HP PRN PO 05/25/24 15:15 UNV Nitroglycerin 0.4 mg Q5MINP PRN SL 05/25/24 15:15 UNV Morphine Sulfate 2 mg Q30M PRN IV 05/25/24 15:15 UNV Exam General Appearance: Alert, Oriented X3, Cooperative, No acute distress HEENT: Atraumatic, PERRLA, EOMI, Mucous membr. moist/pink Respiratory: Clear to auscultation, Normal air movement Cardiovascular: Regular rate, Normal S1, Normal S2, No murmurs Abdominal: Normal bowel sounds, Soft, No tenderness, No hepatospenomegaly, No masses Extremities: No clubbing, No cyanosis, No edema, Normal pulses, No tenderness/swelling Skin: No rashes, No breakdown, No significant lesion Neuro: Normal speech, Strength at 5/5 X4 ext, Normal tone, Sensation intact Psych/Mental Status: Mental status NL, Mood NL Labs/Xrays Labs Test 05/20/24 11:28 Range/Units White Blood Count 9.2 4.4-10.8 10^3/uL Red Blood Count 4.24 4.0-5.20 10^6/uL Hemoglobin 12.7 12.2-16.2 g/dL Hematocrit 38.5 36.0-46.0 % Mean Corpuscular Volume 90.7 80.0-100.0 fL Mean Corpuscular Hemoglobin 29.8 28.0-32.0 pg Mean Corpuscular Hemoglobin Concent 32.9 32.0-36.0 g/dL Red Cell Distribution Width 14.5 H 11.8-14.3 % Platelet Count 297 140-450 10^3/uL Mean Platelet Volume 7.9 6.9-10.8 fL Neutrophils (%) (Auto) 72.2 37.0-80.0 % Lymphocytes (%) (Auto) 16.0 10.0-50.0 % Monocytes (%) (Auto) 9.4 0.0-12.0 % Eosinophils (%) (Auto) 1.5 0.0-7.0 % Basophils (%) (Auto) 0.9 0.0-2.0 % Neutrophils # (Auto) 6.6 1.6-8.6 10 ^3/uL Lymphocytes # (Auto) 1.5 0.4-5.4 10 ^3/uL Monocytes # (Auto) 0.9 0-1.3 10 ^3/uL Eosinophils # (Auto) 0.1 0-0.8 10 ^3/uL Basophils # (Auto) 0.1 0-0.2 10 ^3/uL Nucleated Red Blood Cells 0.0 % Prothrombin Time 10.5 9.3-11.8 sec Prothrombin Time INR 0.99 0.9-1.15 Activated Partial Thromboplast Time 24.2 L 24.5-34.5 SEC Sodium Level 139 136-145 mmol/L Potassium Level 4.5 3.5-5.1 mmol/L Chloride Level 105 98-107 mmol/L Carbon Dioxide Level 29 20-31 mmol/L Anion Gap 5 5-15 Blood Urea Nitrogen 21 9-23 mg/dL Creatinine 1.34 H 0.550-1.02 mg/dL Glomerular Filtration Rate Calc 47 >90 mL/min BUN/Creatinine Ratio 15.7 10.0-20.0 Serum Glucose 79 74-106 mg/dL Calcium Level 9.5 8.7-10.4 mg/dL Total Bilirubin 0.3 0.2-1.0 mg/dL Aspartate Amino Transferase (AST) 15 13-40 U/L Alanine Aminotransferase (ALT) 20 7-40 U/L Alkaline Phosphatase 59 46-116 U/L Total Protein 7.0 5.7-8.2 g/dL Albumin 4.4 3.2-4.8 g/dL Assessment/Plan Assessment/Plan Assessment/Plan: Chest pain Status post PTCA x1 RCA Labs Angio A.m. labs Supportive oxygen Antiemetics Pain management DAPT (Asa + plavix) Beta-blockers (metop) Lipid lowering agent (atorvastatin) echo Chronic hypertension Continue home medications Chronic hyperlipidemia Continue home medications Chronic COPD Respiratory treatments p.r.n. FEN/PPX cardiac diet Hep-Lock DVT prophylaxis PUD prophylaxis home medications reconciled discussed plan of care with patient and nurse Admit to tele Plan discussed with: Patient My Orders Orders - GRICELDA WINTERS CHANNELER Procedure Category Date Status Time Admit ADMIT 05/25/24 Transmitted 15:14 Allergies GABINO 05/25/24 In Process 15:14 Code Status CODE 05/25/24 Transmitted 15:14 Hydrocodone-Acet PHA 05/25/24 Logged 5/325mg Tab ([place] 15:15 Ondansetron Hcl PHA 05/25/24 Logged (Zofran) 15:15 Complete Blood Count LAB 05/26/24 Verified 04:00 Comprehensive LAB 05/26/24 Verified Metabolic Panel 04:00 Cardiac DIET 05/25/24 Transmitted Diet-2gna,Lofat,Lochol Dinner Acetaminophen Tablet PHA 05/25/24 Logged (Tylenol Tablet) 15:15 Nitroglycerin PHA 05/25/24 Logged Sublingual (Ntrostat 15:15 Morphine Sulfate PHA 05/25/24 Logged Injection 15:15 Oxygen By Nasal RT 05/25/24 Transmitted Cannula 15:14 Date of Service: May 25, 2024 Billing Provider: GRICELDA WINTERS Common Visit Codes: [id number] INP/OBS CARE (HIGH) GRICELDA WINTERS May 25, 2024 15:30
[2024-05-25] MEDS: ATORVASTATIN 20 MG TAB PO SCH (22:04)
[2024-05-25] MEDS: MELATONIN 5 MG TAB ONE (22:31)
[2024-05-26 04:53] VITALS: BP 137/72; PULSE 52; RESP 18; TEMP 97.9; O2SAT 98
[2024-05-26 08:00] VITALS: PULSE 54; RESP 20; O2SAT 96
[2024-05-26 08:14] LABS: Basophils # (auto) 0.1 10 ^3/uL (0-0.2); Basophils % (auto) 0.7 % (0.0-2.0); Eosinophils # (auto) 0.1 10 ^3/uL (0-0.8); Eosinophils % (auto) 1.4 % (0.0-7.0); Hematocrit 39.4 % (36.0-46.0); Hemoglobin 13.2 g/dL (12.2-16.2); Lymphocytes # (auto) 1.7 10 ^3/uL (0.4-5.4); Lymphocytes % (auto) 18.6 % (10.0-50.0); Mean Corpuscular Hemoglobin 30.2 pg (28.0-32.0); Mean Corpuscular Hgb Conc. 33.5 g/dL (32.0-36.0); Mean Corpuscular Volume 90.3 fL (80.0-100.0); Monocytes # (auto) 0.9 10 ^3/uL (0-1.3); Neutrophils # (auto) 6.5 10 ^3/uL (1.6-8.6); Neutrophils % (auto) 69.3 % (37.0-80.0); Platelet Count (auto) 298 10^3/uL (140-450); Red Blood Cells 4.36 10^6/uL (4.0-5.20); Red Cell Distribution Width 14.2 % (11.8-14.3); White Blood Cell 9.4 10^3/uL (4.4-10.8)
[2024-05-26 08:45] VITALS: BP 144/69; PULSE 54; RESP 20; TEMP 98.3; O2SAT 96
[2024-05-26 08:47] LABS: Alanine Aminotransferase 23 U/L (7-40); Alkaline Phosphatase 58 U/L (46-116); Anion Gap 7 (5-15); BUN/Creatinine Ratio 15.7 (10.0-20.0); Blood Urea Nitrogen 19 mg/dL (9-23); Calcium 9.8 mg/dL (8.7-10.4); Carbon Dioxide 26 mmol/L (20-31); Chloride 104 mmol/L (98-107); Glucose 98 mg/dL (74-106); Potassium 3.5 mmol/L (3.5-5.1); Sodium 137 mmol/L (136-145)
[2024-05-26 08:48] LABS: Albumin 4.2 g/dL (3.2-4.8)
[2024-05-26 08:49] LABS: Aspartate Aminotransferase 17 U/L (13-40); Bilirubin, Total 0.6 mg/dL (0.2-1.0); Total Protein 6.8 g/dL (5.7-8.2)
[2024-05-26 10:00] VITALS: O2SAT 96
[2024-05-26] MEDS: METOPROLOL SUCCINATE XL 50 MG TAB PO SCH (10:00)
--- NOTE | 2024-05-26 10:58 | DVHSR ---
APPROVED REPORT EXAM: LIMITED Two-dimensional and M-mode echocardiogram with Doppler and color Doppler. Blood Pressure: 137/72 mmHg INDICATION Chest Pain RISK FACTORS Height: 70, Weight: 194 DIMENSIONS LVDd4.5 (3.8-5.7cm)LA (2D) (1.9-4.0cm)Aortic Root3.5 (2.0-3.7cm) LVDs3.3 (2.5-4.0cm)LA (MM) (1.9-4.0cm)Aortic Cusp Exc1.9 (1.5-2.0cm) EF (%) 55.0 (55-70%)Rt. Atrium (1.9-4.0cm)Asc. Aorta cm IVSd1.0 (0.7-1.1cm)RV (D) (1.8-2.4cm) PWd1.2 (0.7-1.1cm) Mitral Valve MitralMitral Stenosis E/A ratio0.02D MVAcm2 Aortic Valve Aortic ValveAortic Stenosis LVOT Diameter2.0 (1.8-2.4cm)Doppler AVAcm2 Tricuspid Valve TR Velocity1.80m/s [id number] LEFT VENTRICLE The left ventricle is of normal size. Wall thickness is normal. Ejection fraction is estimated at 5 5-60%. There is no gross wall motion abnormalities but endocardial definition is suboptimal. Diasto lic function is not assessed. RIGHT VENTRICLE Not well visualized. Likely of normal size and systolic function. ATRIA The left atrium is of normal size. Right atrium is not well visualized. Intra-atrial septum is not well visualized. MITRAL VALVE Likely of normal structure and function. PULMONIC VALVE Not visualized. TRICUSPID VALVE Likely with normal structure and function. There is mild tricuspid regurgitation. PA systolic press ure is estimated 20 20 mm Hg. AORTIC VALVE Not well visualized. No evidence of significant stenosis or regurgitation. GREAT VESSELS Aortic root is of normal size. Proximal ascending aorta isn't visualized. PERICARDIAL EFFUSION No significant pericardial effusion. IVC is of normal size and collapses normally with inspiration. Other Information Technically limited study due to body habitus, patient position, patient moving constantly and patie nt has large breast implants. Conclusion The study is technically limited. Normal left ventricular size and systolic function. Ejection fraction is estimated at 55-60%. Likely normal right ventricular size and systolic function. No evidence of hemodynamically significant valvular disease. No evidence of pulmonary hypertension. No significant pericardial effusion.
[2024-05-26] MEDS: ASPirin 81 mg TAB PO SCH (10:59)
[2024-05-26] MEDS: CLOPIDOGREL BISULFATE 75 MG TAB PO SCH (11:00)
--- NOTE | 2024-05-26 12:06 | DVHPN2 ---
Cardiovascular: Chest Pain Objective Vitals Vital Signs Date Time Temp Pulse Resp B/P (MAP) Pulse Ox O2 Delivery O2 Flow Rate FiO2 05/26/24 10:00 55 05/26/24 08:45 98.3 20 144/69 (94) 96 98.3 05/26/24 08:00 Room Air* 0 21 Intake/Output Intake and Output 05/26/24 07:00 Intake Total 450 ml Balance 450 ml Intake Oral 450 ml # Voids 2 Medications Current Medications Medications Dose Ordered Sig/Jacky Route Start Time Stop Time Status Last Admin Dose Admin Nitroglycerin 0.4 mg Q5MINP PRN SL 05/25/24 14:45 Morphine Sulfate 2 mg Q30M PRN IV 05/25/24 14:45 Acetaminophen/ Hydrocodone Bitart 1 tab Q4HP PRN PO 05/25/24 15:15 Ondansetron HCl 4 mg Q4HP PRN IV 05/25/24 15:15 Acetaminophen 650 mg Q6HP PRN PO 05/25/24 15:15 Nitroglycerin 0.4 mg Q5MINP PRN SL 05/25/24 15:15 UNV Morphine Sulfate 2 mg Q30M PRN IV 05/25/24 15:15 UNV Albuterol 2.5 mg Q4HPRN PRN NEB 05/25/24 15:30 Ipratropium [place] 0.5 mg Q4HPRN PRN NEB 05/25/24 15:30 Aspirin 81 mg DAILY PO 05/26/24 10:00 05/26/24 10:59 81 MG Clopidogrel Bisulfate 75 mg DAILY PO 05/26/24 10:00 05/26/24 11:00 75 MG Metoprolol Succinate 25 mg DAILY PO 05/26/24 10:00 Atorvastatin Calcium 80 mg HS PO 05/25/24 22:00 05/25/24 22:04 80 MG Laboratory Results Laboratory Tests 05/26/24 07:35 Chemistry Test 05/26/24 07:35 Albumin 4.2 g/dL (3.2-4.8) Calcium Level 9.8 mg/dL (8.7-10.4) Total Protein 6.8 g/dL (5.7-8.2) LFT Test 05/26/24 07:35 Alanine Aminotransferase (ALT) 23 U/L (7-40) Alkaline Phosphatase 58 U/L (46-116) Aspartate Amino Transferase (AST) 17 U/L (13-40) Total Bilirubin 0.6 mg/dL (0.2-1.0) CONCHITA WALLACE MD May 26, 2024 12:06
[2024-05-26] MEDS ORDERED: ASPI-325 PO (12:50)
[2024-05-26] MEDS ORDERED: ATOR80TA PO (12:50)
[2024-05-26] MEDS ORDERED: CLOP75TA70 PO (12:50)
--- NOTE | 2024-05-26 12:51 | DVHDS2 ---
Discharge Summary Date of Admission May 25, 2024 at 14:44 Date of Discharge: May 26, 2024 Admitting Diagnosis Chest pain Status post PTCA x1 RCA Hypertension Hyperlipidemia Chronic COPD Labs/Diagnostic Data: Laboratory Results Test 05/26/24 07:35 05/20/24 11:28 White Blood Count 9.4 10^3/uL (4.4-10.8) Red Blood Count 4.36 10^6/uL (4.0-5.20) Hemoglobin 13.2 g/dL (12.2-16.2) Hematocrit 39.4 % (36.0-46.0) Mean Corpuscular Volume 90.3 fL (80.0-100.0) Mean Corpuscular Hemoglobin 30.2 pg (28.0-32.0) Mean Corpuscular Hemoglobin Concent 33.5 g/dL (32.0-36.0) Red Cell Distribution Width 14.2 % (11.8-14.3) Platelet Count 298 10^3/uL (140-450) Mean Platelet Volume 8.2 fL (6.9-10.8) Neutrophils (%) (Auto) 69.3 % (37.0-80.0) Lymphocytes (%) (Auto) 18.6 % (10.0-50.0) Monocytes (%) (Auto) 10.0 % (0.0-12.0) Eosinophils (%) (Auto) 1.4 % (0.0-7.0) Basophils (%) (Auto) 0.7 % (0.0-2.0) Neutrophils # (Auto) 6.5 10 ^3/uL (1.6-8.6) Lymphocytes # (Auto) 1.7 10 ^3/uL (0.4-5.4) Monocytes # (Auto) 0.9 10 ^3/uL (0-1.3) Eosinophils # (Auto) 0.1 10 ^3/uL (0-0.8) Basophils # (Auto) 0.1 10 ^3/uL (0-0.2) Nucleated Red Blood Cells 0.0 % Sodium Level 137 mmol/L (136-145) Potassium Level 3.5 mmol/L (3.5-5.1) Chloride Level 104 mmol/L (98-107) Carbon Dioxide Level 26 mmol/L (20-31) Anion Gap 7 (5-15) Blood Urea Nitrogen 19 mg/dL (9-23) Creatinine 1.21 mg/dL (0.550-1.02) Glomerular Filtration Rate Calc 53 mL/min (>90) BUN/Creatinine Ratio 15.7 (10.0-20.0) Serum Glucose 98 mg/dL (74-106) Calcium Level 9.8 mg/dL (8.7-10.4) Total Bilirubin 0.6 mg/dL (0.2-1.0) Aspartate Amino Transferase (AST) 17 U/L (13-40) Alanine Aminotransferase (ALT) 23 U/L (7-40) Alkaline Phosphatase 58 U/L (46-116) Total Protein 6.8 g/dL (5.7-8.2) Albumin 4.2 g/dL (3.2-4.8) Prothrombin Time 10.5 sec (9.3-11.8) Prothrombin Time INR 0.99 (0.9-1.15) Activated Partial Thromboplast Time 24.2 SEC (24.5-34.5) Other Laboratory Tests 05/26/24 07:35 Brief Hx & Hospital Course: This is a 54 years old female( transgender) with past medical history of hypertension, hyperlipidemia, COPD, left knee replacement, breast augmentation, vaginoplasty and right wrist fracture come to emergency department because of chest pain. He had chest pain while resting 5/10 intermittent and sharp. The patient subsequently has cardiac catheterization done. Patient had PTCA and stent placed in RCA. The patient doing well after procedure. The patient has echo showed EF of 55-60%. The patient denied any chest pain shortness for breath. I am going to discharge the patient home. Advised the patient to follow up with primary care physician 1-2 weeks. Follow up with licensed mortician per schedule. Activity as tolerated. Diet low-salt low-cholesterol diet. Physical exam: HEENT: Normocephalic atraumatic pupils equal react to light and accommodation. Extraocular muscles intact, conjunctiva pink, oropharynx moist, no thrush, no exudate. Lymphatic: No lymphadenopathy Cardiovascular exam: S1, S2 was heard. No murmurs, rubs, gallops Lung: Clear on auscultation bilaterally, no wheeze, rale, rhonchi. GI: Abdominal soft, nondistended, nontenderness, positive bowel sounds. Extremity: No crepitus, cyanosis, edema. Pedal pulses present bilateral. Full range of motion. Skin: Normal turgor, no rash. Psych: Alert, oriented x3. Neurology: No focal deficits, cranial nerve II to XII grossly intact. This medical document was created using an electronic medical record system with [employer] computerized dictation system. Although this document has been carefully reviewed, there may still be some phonetic and typographical errors. These areas are purely typographical due to imperfections of the software programs, and do not reflect any compromise in the patient's medical care. Condition at Discharge: Stable Final Diagnosis/Problems List Chest pain secondary to non ST elevation GA Non ST-elevation GA Coronary artery disease Status post PTCA x1 RCA Hypertension Hyperlipidemia Chronic COPD Significant RCA stenosis Discharge Disposition: Home Discharge Instruct/Medications Diet: Cardiac 2g Na,low cholest Activity: No Restrictions, As Tolerated Follow Up/Referral: PCP 1-2 WEEKS [employer]PECTING [employer]BSERVER PER SCHEDULE Medications: Aspirin 81 mg one tablet p.o. daily Lipitor 80 mg daily Plavix 75mg daily Resume home med Discharge Statement: "Patient was advised to return to the ER or call 911 if any headaches, dizziness, shortness of breath, chest pain, abdominal pain, bleeding, fevers, or worsening of medical condition. Patient was counseled about treatment plan, medications, possible side effects, patientverbalized understanding. All questions were answered to the best of my ability. This discharge took greater then 30 minutes in planning, reviewing documentation, counseling the patient, and discussing with other team members." ASSESSMENT ASSESSMENT Assessment Significant RCA stenosis Date of Service: May 26, 2024 Billing Provider: CONCHITA WALLACE MD Common Visit Codes: 15468-XLX/OBS DISCH DAY >30min CONCHITA WALLACE MD May 26, 2024 12:51
[2024-05-26 13:00] VITALS: BP 166/67; PULSE 67; RESP 20; TEMP 98; O2SAT 99
[2024-05-26 17:44] VITALS: BP 141/87; PULSE 69; RESP 20; TEMP 98.1; O2SAT 100
[2024-05-26] MEDS ORDERED: MELATONIN 5 MG TAB PO ONE (22:00)
== END 2024-05-26 18:29 | disposition home or self-care (01) | DRG 175 ==
LOC: CATH 12:06 → TELE 14:44 → TELE-WESTW 18:20
PROVIDERS: ATTEND Internal Medicine
PROC: 027034Z Dilation of Coronary Artery, One Artery with Drug-eluting Intraluminal Device, Percutaneous Approach (ICD-10-PCS; principal; 2024-05-25)
PROC: B211YZZ Fluoroscopy of Multiple Coronary Arteries using Other Contrast (ICD-10-PCS; 2024-05-25)
PROC: B215YZZ Fluoroscopy of Left Heart using Other Contrast (ICD-10-PCS; 2024-05-25)
PROC: 4A033BC Measurement of Arterial Pressure, Coronary, Percutaneous Approach (ICD-10-PCS; 2024-05-25)
DX: I25.10 Atherosclerotic heart disease of native coronary artery without angina pectoris (principal); E78.5 Hyperlipidemia, unspecified; I10 Essential (primary) hypertension; J44.9 Chronic obstructive pulmonary disease, unspecified; Z98.61 Coronary angioplasty status; Z88.0 Allergy status to penicillin; Z96.651 Presence of right artificial knee joint; Z79.899 Other long term (current) drug therapy
CPT/HCPCS: 36415; 80053; 85025; 85610; 85730; 93306; 99152; C1887; G0378; J2250

== ENCOUNTER 2024-09-13 13:20 | Emergency (ER) | payer MEDICAID ==
[~2024-09-13] VITALS: Ht 177.8 cm; Wt 81.9 kg
[~2024-09-13 13:20] MED LIST changes: +ASPI-325 PO; +ATOR80TA PO; +CLOP75TA70 PO
[2024-09-13 13:30] VITALS: BP 135/63; PULSE 58; RESP 16; TEMP 98.3; O2SAT 99
== END 2024-09-13 14:28 | disposition left against medical advice (07) ==
LOC: ER 13:23
DX: I10 Essential (primary) hypertension (principal); Z53.21 Procedure and treatment not carried out due to patient leaving prior to being seen by health care provider